=== PATIENT | male | born 1965 | race Caucasian/White ===

== ENCOUNTER 2017-05-13 15:27 | Emergency (ER) | payer OTHER ==
[~2017-05-13] VITALS: Ht 170.2 cm; Wt 81.6 kg
[~2017-05-13 15:27] MED LIST: KETOROLAC 30 MG/ML VIAL ONE; fentaNYL INJECTION 100 MCG/2 ML AMP ONE
--- OUTSIDE RECORDS SUMMARY | 2017-05-13 15:43 | XMS REPORT ---
Author LUIS ALFREDO Sifuentes Organization [employer] Address Unknown Phone Unavailable Care Team Providers Care Property Worker Name Role Phone LUIS ALFREDO DINH CP Unavailable Allergies, Adverse Reactions, Alerts Substance Reaction Event Type Iodine Info Not Available Non Drug Allergy Problems Problem Type Condition Code Onset Dates Condition Status Assessment Dental examination Z01.20 Active Medications Medication Code System Code Instructions Start Date End Date Status Dosage [facility] [address]-38 5-325 MG Orally every 6 hrs 1 [place] [address]-57 500 MG Orally 4 times a day 1 capsule Procedures Procedure Coding System Code Date INTRAORL-PERIAPICAL 1 FILM 69035 CPT-4 D0220 May 21, 2016 INTRAORL-PERIAPICAL EA ADD FILM CPT-4 D0230 May 21, 2016 LTD ORAL EVALUATION - PROBLEM FOCUS CPT-4 D0140 May 21, 2016 BITEWING - SINGLE FILM CPT-4 D0270 May 21, 2016 Vital Signs Date/Time: May 21, 2016 Blood Pressure Diastolic 84 mmHg Blood Pressure Systolic 138 mmHg Results No Known Results Summary Purpose [employer] Submission
--- OUTSIDE RECORDS SUMMARY | 2017-05-13 15:43 | XMS REPORT ---
Author LUIS ALFREDO Sifuentes [employer] Address Unknown Phone Unavailable Care Team Providers Care Faculty Research Assistant Name Role Phone LUIS ALFREDO DINH CP Unavailable Allergies, Adverse Reactions, Alerts Substance Reaction Event Type N.K.D.A. Info Not Available Non Drug Allergy Problems Problem Type Condition Code Onset Dates Condition Status Assessment Dental examination Z01.20 Active Medications Medication Code System Code Instructions Start Date End Date Status Dosage Amoxicillin [facility] [address]-78 500 MG Orally 4 times a day May 14, 2016 May 21, 2016 1 capsule [place] [facility] [address]-65 5-325 MG Orally every 6 hrs May 14, 2016 May 18, 2016 1 tablet as needed Procedures Procedure Coding System Code Date INTRAORL-PERIAPICAL 1 FILM 51671 CPT-4 D0220 May 14, 2016 LTD ORAL EVALUATION - PROBLEM FOCUS CPT-4 D0140 May 14, 2016 Vital Signs Date/Time: May 14, 2016 Blood Pressure Diastolic 113 mmHg Blood Pressure Systolic 166 mmHg Results No Known Results Summary Purpose [employer] Submission
[2017-05-13] MEDS ORDERED: TETANUS,DIPTH,PERTUSS P/F (BOOSTRIX) 0.5 ML VIAL IM ONE (15:45)
[2017-05-13] MEDS ORDERED: CLINDAMYCIN INJECTION 600 MG in NS (IVPB) 50 ML IV ONE (15:45)
[2017-05-13] MEDS ORDERED: LIDOCAINE 1% INJ 20 ML (XYLOCAINE) VIAL INJ ONE (15:45)
[2017-05-13] MEDS ORDERED: KETOROLAC 30 MG/ML VIAL IVP ONE (15:45)
[2017-05-13] MEDS ORDERED: fentaNYL INJECTION 100 MCG/2 ML AMP IVP ONE (15:45)
--- NOTE | 2017-05-13 16:07 | ED General ---
General Chief Complaint: Skin/Wound Problems Stated Complaint: L HAND THUMB INJ Nursing Triage Note: States he caught his thumb on left hand in saw clamp. distal tip is macerated nail missing, bleeding controlled Nursing Sepsis Screen: No Definite Risk Source of Information: Patient Exam Limitations: No Limitations History of Present Illness Time Seen by Provider: 15:25 Allergies and Home Medications Allergies Coded Allergies: No Known Drug Allergies (Unverified , 05/13/17) Home Medications Oxycodone HCl/Acetaminophen 1 Each Tablet, 1 EACH PO Q4H PRN for PAIN-MODERATE TO SEVERE, #30 Prescribed by: CIRO OTOOLE on 05/13/17 1647 Sulfamethoxazole/Trimethoprim 1 Each Tablet, 1 EACH PO BID, #20 Prescribed by: CIRO OTOOLE on 05/13/17 1647 Past Ktdlsel-Yahyik-Dpijnf Hx Patient Social History Alcohol Use: Occasionally Uses Number of Drinks Today: 1 Alcohol Beverage of Choice: Beer Recreational Drug Use: No Smoking Status: Current Everyday Smoker Type Used: Cigarettes, Smokeless Tobacco 2nd Hand Smoke Exposure: No Recent Foreign Travel: No Contact w/Someone Who Travel: No Recent Infectious Disease Expo: No Recent Hopitalizations: No Physical Abuse: No Sexual Abuse: No Mistreated: No Fear: No Immunizations Up To Date Tetanus Booster (TDap): More than 5yrs Seasonal Allergies Seasonal Allergies: No Surgeries History of Surgeries: Yes Surgeries: Orthopedic Respiratory History of Respiratory Disorde: No Cardiovascular History of Cardiac Disorders: Yes Cardiac Disorders: High Cholesterol, Hypertension Neurological History of Neurological Disord: No Genitourinary History of Genitourinary Disor: No Gastrointestinal History of Gastrointestinal Di: No Musculoskeletal History of Musculoskeletal Dis: No Endocrine History of Endocrine Disorders: No HEENT History of HEENT Disorders: No Cancer History of Cancer: No Psychosocial History of Psychiatric Problem: No Suicide Risk Score: 0 Integumentary History of Skin or Integumenta: No Blood Transfusions History of Blood Disorders: No Adverse Reaction to a Blood Tr: No Physical Exam Vital Signs Vital Sign - Last 12Hours 05/13/17 15:34 Temp 97.3 Pulse 77 Resp 18 B/P (MAP) 147/93 Pulse Ox 96 Capillary Refill : Less Than 3 Seconds Progress/Results/Core Measures Results/Orders My Orders Orders - CIRO RAMÍREZ MD Fentanyl Injection (Sublimaze Injection (05/13/17 15:27) Ketorolac Injection (Toradol Injection) (05/13/17 15:27) Fentanyl Injection (Sublimaze Injection (05/13/17 15:45) Ketorolac Injection (Toradol Injection) (05/13/17 15:45) Dipht,Pertuss(Acell),Tet Adult (Boostrix (05/13/17 15:45) Finger(S) (05/13/17 15:36) Lidocaine 1% Injection (Xylocaine 1% Inj (05/13/17 15:45) Clindamycin Injection (Cleocin Injection (05/13/17 15:45) Medications Given in ED Current Medications Medications Dose Ordered Sig/Toshia Route Start Time Stop Time Status Last Admin Dose Admin Clindamycin Phosphate 600 mg/ Sodium Chloride 54 ml @ 100 mls/hr ONCE ONCE IV 05/13/17 15:45 05/13/17 16:17 DC 05/13/17 15:15 100 MLS/HR Diphtheria/ Tetanus/Acell Pertussis 0.5 ml ONCE ONCE IM 05/13/17 15:45 05/13/17 15:46 DC 05/13/17 15:15 0.5 ML Fentanyl Citrate 100 mcg ONCE ONCE IVP 05/13/17 15:45 05/13/17 15:46 DC 05/13/17 15:34 100 MCG Ketorolac Tromethamine 30 mg ONCE ONCE IVP 05/13/17 15:45 05/13/17 15:46 DC 05/13/17 15:35 30 MG Lidocaine HCl 20 ml ONCE ONCE INJ 05/13/17 15:45 05/13/17 15:46 DC 05/13/17 16:00 20 ML Vital Signs/I&O Vital Sign - Last 12Hours 05/13/17 15:34 Temp 97.3 Pulse 77 Resp 18 B/P (MAP) 147/93 Pulse Ox 96 Blood Pressure Mean: 111 Progress Note : Time: 16:00 Progress Note Patient was promptly seen and examined upon arrival. He has a crush injury to the distal left thumb which he crush and cleanup. Patient was given Toradol and fentanyl for pain management. There is no active bleeding upon arrival. Clindamycin was administered by IV route for infection prophylaxis. X-rays showed fragmented distal phalanx fracture including a shattered tuft. Digital block will be performed. Wound will be cleaned and debris removed. Departure Impression Impression: Primary Impression: Crushing injury of left thumb Qualified Codes: S67.02XA - Crushing injury of left thumb, initial encounter Additional Impression: Open fracture of tuft of distal phalanx of left thumb Disposition: 01 HOME, SELF-CARE Condition: Improved Departure-Patient Inst. Decision time for Depature: 16:20 Referrals: DAVID NARVAEZ MD NO,LOCAL PHYSICIAN (PCP) Primary Care Physician Patient Instructions: Crush Injury, Finger Fracture Add. Discharge Instructions: Keep the wound and dressings clean and dry. Cover when bathing. You may remove the gauze dressing and splint if needed if it becomes soiled or too bloody. Rewrap with clean gauze. Keep the yellow nonstick gauze in place until seen by an orthopedic provider. Keep the wound elevated to the level of your heart is much as possible. Return to care if you have complications including worsening pain, spreading redness, puslike drainage, or fever. Follow -up with Dr. Narvaez's office as soon as possible. Complete your antibiotics as prescribed. All discharge instructions reviewed with patient and/or family. Voiced understanding. Scripts Oxycodone HCl/Acetaminophen (Percocet 5-325 mg Tablet) 1 Each Tablet 1 EACH PO Q4H Y for PAIN-MODERATE TO SEVERE, #30 TAB Prov: CIRO RAMÍREZ MD 05/13/17 Sulfamethoxazole/Trimethoprim (Bactrim Ds Tablet) 1 Each Tablet 1 EACH PO BID, #20 TAB Prov: CIRO RAMÍREZ MD 05/13/17 Work/School Note: Work Release Form Date Seen in the Emergency Department: May 13, 2017 Return to Work: May 14, 2017 Other Restrictions Listed Below: No use of left hand until cleared by orthopedist CIRO RAMÍREZ MD May 13, 2017 16:07
--- NOTE | 2017-05-13 16:08 | Diagnostic Imaging Report ---
Three views of the left fingers. INDICATION: Injury. FINDINGS: There is a comminuted fracture involving the distal tuft of the distal phalanx of the left thumb. No radiopaque foreign body is evident. There is displacement of the bone fragments into the subcutaneous tissues at the distal aspect of the thumb. There is possible soft tissue loss as well. No other fracture seen. No subluxation or dislocation. IMPRESSION: Comminuted fracture of the distal aspect of the tuft of the distal phalanx of the thumb. There is displacement of the fracture fragment to the distal aspect of the thumb subcutaneously. Dictated by: Dictated on workstation # [id number]
[2017-05-13] MEDS ORDERED: OXYC-197 PO (16:47)
[2017-05-13] MEDS ORDERED: SULF1TAB35 PO (16:47)
[2017-05-13 17:00] VITALS: BP 137/61
== END 2017-05-13 16:58 | disposition home or self-care (01) ==
LOC: EDUNIT# 15:27 → ER 15:29
DX: S62.522B Displaced fracture of distal phalanx of left thumb, initial encounter for open fracture (principal); E78.00 Pure hypercholesterolemia, unspecified; I10 Essential (primary) hypertension; F17.210 Nicotine dependence, cigarettes, uncomplicated; Z23 Encounter for immunization; W23.1XXA Caught, crushed, jammed, or pinched between stationary objects, initial encounter
CPT/HCPCS: 64450; 73140; 90471; 90715; 96365; 96375

== ENCOUNTER 2017-11-09 12:36 | Emergency (ER) | payer OTHER ==
[~2017-11-09] VITALS: Ht 170.2 cm; Wt 78.5 kg
[~2017-11-09 12:36] MED LIST changes: -KETOROLAC 30 MG/ML VIAL ONE; +OXYC-197 PO; +SULF1TAB35 PO; -fentaNYL INJECTION 100 MCG/2 ML AMP ONE
[2017-11-09] MEDS ORDERED: GABA-488 (12:59)
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
[2017-11-09] MEDS ORDERED: KETOROLAC 30 MG/ML VIAL IM ONE (14:00)
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
[2017-11-09] MEDS ORDERED: KETOROLAC 30 MG/ML VIAL IVP ONE (14:30)
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
[2017-11-09 15:18] LABS: BUN/CREATININE RATIO 16; CALCIUM 9.4 MG/DL (8.5-10.1); CARBON DIOXIDE 22 MMOL/L (21-32); CHLORIDE 107 MMOL/L (98-107); CREATININE SERUM 0.79 MG/DL (0.60-1.30); GFR ESTIMATED > 60; GLUCOSE 101 MG/DL (70-105); POTASSIUM 4.2 MMOL/L (3.6-5.0); SODIUM 139 MMOL/L (135-145)
[2017-11-09] MEDS ORDERED: NS 100 ML (IVPB) BAG IV ONE (15:30)
[2017-11-09] MEDS ORDERED: IOHEXOL 350 MG/ML 100 ML (OMNIPAQUE 350) VIAL IV ONE (15:30)
[2017-11-09] MEDS ORDERED: diphenhydrAMINE 50 MG/ML INJ (BENADRYL) IVP ONE (15:45)
[2017-11-09] MEDS ORDERED: methylPREDNISolone 125 MG (Solu-MEDROL) VIAL IVP ONE (15:45)
--- NOTE | 2017-11-09 16:39 | Diagnostic Imaging Report ---
PROCEDURE: CT chest with contrast only. TECHNIQUE: Multiple contiguous axial images were obtained through the chest after administration of intravenous contrast. INDICATION: Abdominal chest x-ray. FINDINGS: The CT thorax and chest exam performed earlier today raised the question of a left hilar mass. On this study, there is no sign of a mass involving the left hilum. Most likely, the finding seen on the previous exam was related to the pulmonary vessels alone. The pulmonary arteries are fairly well opacified. There is no defect to suggest a pulmonary embolus. The aorta is not abnormally dilated and there is no sign of a dissection. The heart size is within normal limits. The chest exam performed earlier today did note a small area of increased density overlying the right lung base. On this study, there is a corresponding pleural-based noncalcified triangular density in this region measuring 7.7 x 1.0 x 16.7 mm. This could be secondary to scar formation. The possibility that this is neoplastic in nature cannot be entirely excluded. I would recommend that a PET/CT be performed for further study. If the PET/CT exam is not obtained, then a short-term (three-month) followup CT chest exam should be obtained. The lungs are otherwise generally clear. There is mild dependent atelectasis in each lung base but there is no sign of pneumonia or of a pleural effusion. The sections through the upper abdomen failed to show any evidence for an acute abnormality. The bone windows are unremarkable for fracture or for destructive lesion. IMPRESSION: 1. There is no evidence for a left hilar mass. Most likely, the appearance of the left hilum seen on the previous exam is related to superimposition of bronchovascular markings. 2. The pleural-based nodular density along the periphery of the right lower lobe is of uncertain etiology. Considerations and recommendations as above. 3. There is no acute cardiopulmonary abnormality noted otherwise. Dictated by: Dictated on workstation # [id number]
[2017-11-09] MEDS ORDERED: PRD20T PO (17:32)
[2017-11-09 17:38] VITALS: BP 162/100
== END 2017-11-09 17:41 | disposition home or self-care (01) ==
LOC: EDUNIT# 12:36 → ER 12:38
DX: M54.2 Cervicalgia (principal); M54.6 Pain in thoracic spine; R91.1 Solitary pulmonary nodule; E78.00 Pure hypercholesterolemia, unspecified; I10 Essential (primary) hypertension; Z88.0 Allergy status to penicillin; Z91.041 Radiographic dye allergy status
CPT/HCPCS: 36415; 71045; 71046; 71260; 72125; 72128; 80048; 96374; 96375

== ENCOUNTER → 2018-06-16 | Outpatient (CLI) | payer MEDICAID, OTHER ==
[~2018-06-16] MED LIST changes: +GABA-488; -OXYC-197 PO; +OXYC1TAB87 PO; +PRD20T PO
--- NOTE | 2018-06-16 15:10 | Diagnostic Imaging Report ---
PROCEDURE: CT chest without contrast. TECHNIQUE: Multiple contiguous axial images were obtained through the chest without the use of intravenous contrast. INDICATION: Followup left hilar mass. COMPARISON: Comparison is made with prior CT chest from 11/09/2017. FINDINGS: No axillary lymphadenopathy is identified. Hilar and mediastinal evaluation is limited without intravenous contrast but no gross abnormality seen. No pericardial or pleural fluid is detected. Parenchymal evaluation again demonstrates a triangular shaped subpleural density in the posterior lateral right lower lobe, similar in appearance to prior CT. No new abnormality is detected. The upper abdomen is unremarkable. IMPRESSION: Stable noncontrast CT chest when compared with exam from 11/09/2017. Previously noted subpleural density in the posterior lateral right lower lobe is stable. Additional followup in six months is recommended to confirm stability. Dictated by: Dictated on workstation # [id number]
== END ==
LOC: RAD 14:34
PROVIDERS: ATTEND Nurse Practitioner Family
DX: J98.4 Other disorders of lung (principal)
CPT/HCPCS: 71250

== ENCOUNTER → 2018-12-17 | Outpatient (CLI) | payer MEDICAID ==
--- NOTE | 2018-12-17 14:18 | Diagnostic Imaging Report ---
PROCEDURE: MRI left upper extremity without contrast. TECHNIQUE: Multiplanar, multisequence non contrast-enhanced MRI of the left upper extremity was accomplished. INDICATION: Left shoulder pain and decreased range of motion. Injury one week ago. COMPARISON: None. FINDINGS: There is significant motion artifact on multiple sequences. No acute fracture is seen in the left shoulder. Alignment is normal. There is moderate left shoulder joint effusion. Prominent subcortical cystlike changes are seen at the greater tuberosity, which are degenerative. There are moderate degenerative changes in the left acromioclavicular joint, with subacromial spurring. There are multiple linear hypointensity is in the joint space, may represent synovitis. The joint fluid extends into the superior subscapularis recess. The supraspinatus tendon demonstrates a full-thickness tear anteriorly measuring up to 1.5 cm in size. There is marked tendinosis of the supraspinatus and infraspinatus tendons. There is partial thickness tearing of the anterior fibers of the infraspinatus tendon with medial intrasubstance extension. The teres minor tendon appears intact. There is marked tendinosis of the subscapularis tendon, with high-grade partial-thickness tearing at the articular surface. There is a small amount of fluid in the subacromial subdeltoid bursa. The long head of the biceps tendon demonstrates a near complete tear proximally, with marked tendinosis. The tendon is displaced medially from the bicipital groove. The glenoid labrum is suboptimally evaluated in the absence of intra-articular contrast, however, no significant paralabral cysts or displaced labral tear is seen. The acromion has a curved undersurface. The coracoclavicular and coracoacromial ligaments are intact. No muscular atrophy is seen. The soft tissues about the left shoulder are otherwise unremarkable. IMPRESSION: 1. Moderate size full-thickness tear of the left supraspinatus tendon with high-grade partial-thickness tearing of the infraspinatus and subscapularis tendons. There is also marked rotator cuff tendinosis. 2. Near complete tear of the proximal long head of the biceps tendon, which is displaced medially. 3. Moderate left shoulder joint effusion with linear irregularity, likely synovitis. 4. Moderate left shoulder joint effusion with mild subacromial spurring. Dictated by: Dictated on workstation # [id number]
== END ==
LOC: RAD 13:09
PROVIDERS: ATTEND Nurse Practitioner Primary Care
DX: S46.012A Strain of muscle(s) and tendon(s) of the rotator cuff of left shoulder, initial encounter (principal); S46.112A Strain of muscle, fascia and tendon of long head of biceps, left arm, initial encounter
CPT/HCPCS: 73221

== ENCOUNTER 2019-01-08 12:20 | Outpatient (CLI) | payer MEDICAID ==
[~2019-01-08] VITALS: Ht 170.2 cm; Wt 79.8 kg
[~2019-01-08 12:20] MED LIST changes: -GABA-488; +GABA-488 PO
[2019-01-08] MEDS ORDERED: HYDR-3812 PO (12:32)
[2019-01-08 12:55] VITALS: BP 150/91
== END 2019-01-08 12:40 | disposition home or self-care (01) ==
LOC: PREOP 12:20
PROVIDERS: ATTEND Orthopaedic Surgery
DX: Z01.818 Encounter for other preprocedural examination (principal)
CPT/HCPCS: 87081

== ENCOUNTER 2019-01-14 09:17 | Day surgery (SDC) | payer MEDICAID ==
--- NOTE | 2019-01-05 10:11 | HISTORY AND PHYSICAL ---
DATE OF SERVICE: DATE OF ADMISSION: 01/14/2019. This will be for outpatient surgery on 01/14/2019. HISTORY OF PRESENT ILLNESS: The patient is a 53-year-old gentleman with complaints of progressively worsening left shoulder pain. He reports progressively worsening symptoms, reports difficulty with sleep. He has been utilizing a sling periodically to help with his discomfort. He reports no new injuries. His MRI revealed a 1.5 cm full thickness supraspinatus tear with a near full thickness long head biceps disruption. Due to functional impairment and failure to improve with conservative measures, the patient elected to proceed with surgical intervention. REVIEW OF SYSTEMS: No chest pain, no shortness of breath, no dysuria. PAST MEDICAL HISTORY: Back pain, neuropathy. PAST SURGICAL HISTORY: Thumb, rotator cuff, carpal tunnel release. FAMILY HISTORY: Noncontributory. PRIMARY CARE PROVIDER: [facility]. MEDICATIONS: Gabapentin, [place], cyclobenzaprine, meloxicam. ALLERGIES: IODINE, PENICILLIN. SOCIAL HISTORY: The patient smokes half pack per day. She uses a 1/4 can of tobacco a day. Denies alcohol use. PHYSICAL EXAMINATION: GENERAL: The patient is a well-developed, well-nourished, in no acute distress. HEENT: Normocephalic, atraumatic. Pupils are equal, round and reactive to light. Oropharynx is clear. NECK: Supple, no lymphadenopathy. LUNGS: Clear to auscultation bilaterally. HEART: Regular rate and rhythm. ABDOMEN: Soft, nontender, nondistended. EXTREMITIES: Left shoulder demonstrates active forward elevation 160 degrees with considerable pain and difficulty beyond 90 degrees. He has a positive drop arm sign. He has weakness with external rotation. Positive Neer's and positive Landaverde, positive [place]'s. IMPRESSION: Left shoulder rotator cuff tear with long head biceps near disruption. PLAN: Left shoulder arthroscopy, biceps tenotomy and rotator cuff repair. The risks, benefits, options, ramifications for recovery were discussed at length with the patient. He understands and wishes to proceed. Job ID: [id number] DocumentID: [id number] Dictated Date: 01/05/2019 08:14:55 Demand Planning Analyst Date: 01/05/2019 10:10:26 Dictated By: EDUARDO CARTER MD
[~2019-01-14] VITALS: Ht 170.2 cm; Wt 79.8 kg
[2019-01-14] VITALS (9 sets, daily range): BP systolic 125–156; BP diastolic 84–102
[~2019-01-14 09:17] MED LIST changes: +HYDR-3812 PO
--- NOTE | 2019-01-14 09:32 | Progress Note-Pre Operative ---
Pre-Operative Progress Note H&P Reviewed The H&P was reviewed, patient examined and no changes noted. Date Seen by Provider: Jan 14, 2019 Time Seen by Provider: : Date H&P Reviewed: Jan 14, 2019 Time H&P Reviewed: :31 Pre-Operative Diagnosis: left rotator cuff and SLAP tears EDUARDO CARTER MD Jan 14, 2019 09:31
--- NOTE | 2019-01-14 09:33 | Progress Note-Post Operative ---
Post-Operative Progess Note Surgeon (s)/Call Center Coordinator (s) Surgeon EDUARDO CARTER MD Call Center Coordinator: Mina Ricardo Pre-Operative Diagnosis left rotator cuff and SLAP tears Post-Operative Diagnosis left rotator cuff, labral and SLAP tears Procedure & Operative Findings Date of Procedure 01/14/19 Procedure Performed/Findings left shoulder arthroscopic biceps tenotomy,labral debridement, acromioplasty and open rotator cuff repair Anesthesia Type GETA Estimated Blood Loss Estimated blood loss (mL): minimal Specimens/Packing Specimens Removed none Packing: none EDUARDO CARTER MD Jan 14, 2019 09:33
[2019-01-14] MEDS ORDERED: MIDAZOLAM 2 MG/2 ML (VERSED) VIAL ONE ×2 (09:42→10:13)
[2019-01-14] MEDS ORDERED: CLINDAMYCIN 600 MG/50 ML IVPB 50 ML IV ONE (09:45)
[2019-01-14] MEDS: LACTATED RINGERS 1,000 ML IV PRN ×2 (09:50→11:15)
[2019-01-14] MEDS ORDERED: ROCURONIUM 10 MG/ML 5 ML SYRINGE IV ONE (10:12)
[2019-01-14] MEDS ORDERED: LIDOCAINE PF 2% 5 ML (XYLOCAINE) VIAL ONE (10:12)
[2019-01-14] MEDS ORDERED: ONDANSETRON 4 MG/2 ML (SDV) Z0FRAN ONE (10:12)
[2019-01-14] MEDS ORDERED: proPOfol 200 MG/20 ML (DIPRIVAN) VIAL IV ONE (10:12)
[2019-01-14] MEDS ORDERED: DEXAMETHASONE 10 MG/ML (DECADRON) 1 ML VIAL ONE (10:12)
[2019-01-14] MEDS ORDERED: fentaNYL INJECTION 100 MCG/2 ML AMP ONE (10:13)
[2019-01-14] MEDS ORDERED: morphine PF (DURAMORPH) 10 MG/10 ML AMP ONE (10:15)
[2019-01-14] MEDS ORDERED: BUPIVACAINE 0.25% 30 ML (SENSORCAINE) VIAL ONE (10:15)
[2019-01-14] MEDS ORDERED: SEVOFLURANE (ULTANE) 15 ML INHAL SOLN ONE (10:21)
--- OUTSIDE RECORDS SUMMARY | 2019-01-14 10:44 | XMS REPORT | CCD ---
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 Role Phone PP Unavailable CCM Unavailable Summary Purpose Interface Exchange Insurance Providers Payer name Policy type / Coverage type Covered green party ID Effective Begin Date Effective End Date [facility] Medicaid [id number] Unknown Family history Father Diagnosis Age At Onset Diabetes mellitus Type 2 Unknown Hyperlipidemia Unknown Brother Diagnosis Age At Onset Diabetes mellitus Type 2 Unknown Social History Social History Element Codes Description Effective Dates Marital status Unknown Single 11/18/2017 Number of children Unknown 2 11/18/[address]: 87719081 Current every day smoker 11/18/2017 Number of years using tobacco Unknown 10 - 20 11/18/2017 Number of cigarettes/day Unknown 10 (Half a pack) 11/18/[address]: 725498 Currently drinks alcohol 11/18/2017 Frequency of drinks SNOMED CT: 975834164 1- 4 drinks per week 11/18/2017 Allergies, Adverse Reactions, Alerts Substance Reaction Codes Entered Date Inactivated Date Status Iodine RxNorm: 5933 11/18/2017 No Inactive Date Active Penicillin Unknown 11/18/2017 No Inactive Date Active Past Medical History Illness Codes Condition Status Onset Date Resolved Date Carpal tunnel syndrome, left upper limb ICD-9: 354.0 ICD-10: G56.02 Active 08/18/2018 Unknown Carpal tunnel syndrome, right upper limb ICD-9: 354.0 ICD-10: G56.01 Active 08/18/2018 Unknown Cervicalgia ICD-9: 723.1 ICD-10: M54.2 Active 07/03/2018 Unknown Low back pain ICD-9: 724.2 ICD-10: M54.5 Active 11/18/2017 Unknown Muscle spasm of back ICD- 9: 724.8 ICD-10: M62.830 Active 11/18/2017 Unknown Pain in thoracic spine ICD-9: 724.1 ICD-10: M54.6 Active 11/18/2017 Unknown Abnormal findings on diagnostic imaging of other specified body structures ICD-9: 793.2 ICD-10: R93.8 Active 11/18/2017 Unknown Problems Condition Codes Effective Dates Condition Status Carpal tunnel syndrome, left upper limb ICD-9: 354.0 ICD-10: G56.02 08/18/2018 Active Carpal tunnel syndrome, right upper limb ICD-9: 354.0 ICD-10: G56.01 08/18/2018 Active Cervicalgia ICD-9: 723.1 ICD-10: M54.2 07/03/2018 Active Low back pain ICD-9: 724.2 ICD-10: M54.5 11/18/2017 Active Muscle spasm of back ICD- 9: 724.8 ICD-10: M62.830 11/18/2017 Active Pain in thoracic spine ICD-9: 724.1 ICD-10: M54.6 11/18/2017 Active Abnormal findings on diagnostic imaging of other specified body structures ICD-9: 793.2 ICD-10: R93.8 11/18/2017 Active Medications Medication Codes Instructions Start Date Stop Date Status Fill Instructions baclofen 10 mg tablet RxNorm: 544806 1 Tablet(s) PO TID as needed muscle spasms 10/27/2018 11/25/2018 Active baclofen 10 mg tablet RxNorm: 893348 Tablet(s) 1 Tablet(s) PO TID as needed muscle spasms 10/27/2018 10/26/2018 Inactive Lortab 5 mg-325 mg tablet RxNorm: 4356481 1 Tablet(s) PO Q6 as needed 09/30/2018 11/28/2018 Active cyclobenzaprine 5 mg tablet RxNorm: 514221 1 Tablet(s) PO TID 09/02/2018 10/01/2018 Inactive cyclobenzaprine 5 mg tablet RxNorm: 292743 1 Tablet(s) PO TID as needed muscle spasms 08/22/2018 09/01/2018 Inactive prednisone 20 mg tablet RxNorm: 682571 3 Tablet(s) PO daily 08/21/2018 08/23/2018 Inactive gabapentin 300 mg capsule RxNorm: 244214 1 Capsule(s) PO in morning and at noon and 2 pills at night 08/18/2018 12/15/2018 Active Lortab 5 mg-325 mg tablet RxNorm: 3918751 1 Tablet(s) PO Q6 as needed ok'd to fill 1 x 08/15/2018 09/29/2018 Inactive gabapentin 300 mg capsule RxNorm: 955335 1 Capsule(s) PO TID 08/04/2018 08/17/2018 Inactive baclofen 10 mg tablet RxNorm: 876726 1 Tablet(s) PO TID as needed muscle spasms 07/31/2018 08/09/2018 Inactive Lortab 5 mg-325 mg tablet RxNorm: 3237875 1 Tablet(s) PO Q6 as needed ok'd to fill 1 x 07/31/2018 08/14/2018 Inactive baclofen 10 mg tablet RxNorm: 045889 1 Tablet(s) PO TID as needed muscle spasms 07/25/2018 07/30/2018 Inactive baclofen 10 mg tablet RxNorm: 121589 1 Tablet(s) PO TID as needed muscle spasms 07/23/2018 07/24/2018 Inactive baclofen 10 mg tablet RxNorm: 813356 1 Tablet(s) PO TID as needed muscle spasms 07/18/2018 07/22/2018 Inactive ibuprofen 800 mg tablet RxNorm: 014733 1 Tablet(s) PO TID as needed 07/11/2018 11/07/2018 Active ibuprofen 800 mg tablet RxNorm: 288760 1 Tablet(s) PO TID as needed 07/11/2018 07/10/2018 Inactive ibuprofen 800 mg tablet RxNorm: 494469 1 Tablet(s) PO TID as needed 07/11/2018 07/10/2018 Inactive Duexis 800 mg-26.6 mg tablet RxNorm: 1044926 1 Tablet(s) PO TID as needed 07/08/2018 08/06/2018 Inactive prednisone 20 mg tablet RxNorm: 436356 1 Tablet(s) PO UD 07/08/2018 07/12/2018 Inactive 40,40,20,20,10,10, baclofen 10 mg tablet RxNorm: 225597 1 Tablet(s) PO TID as needed muscle spasms 07/08/2018 07/17/2018 Inactive prednisone 20 mg tablet RxNorm: 097207 2 Tablet(s) PO daily 07/03/2018 07/07/2018 Inactive baclofen 10 mg tablet RxNorm: 331972 1 Tablet(s) PO TID 07/03/2018 07/07/2018 Inactive Lortab 5 mg-325 mg tablet RxNorm: 1872086 1 Tablet(s) PO Q6 as needed ok'd to fill 1 x 06/20/2018 07/19/2018 Inactive Kenalog 40 mg/mL suspension for injection RxNorm: 4390449 1 Milliliter(s) Inj 06/05/2018 06/05/2018 Inactive cyclobenzaprine 5 mg tablet RxNorm: 861460 1 Tablet(s) PO TID as needed muscle spasms 06/03/2018 08/21/2018 Inactive Lortab 5 mg-325 mg tablet RxNorm: 0512643 1 Tablet(s) PO Q6 as needed ok'd to fill 1 x 05/08/2018 06/06/2018 Inactive cyclobenzaprine 5 mg tablet RxNorm: 587354 1 Tablet(s) PO TID as needed muscle spasms 05/02/2018 06/02/2018 Inactive Lortab 5 mg-325 mg tablet RxNorm: 4719969 1 Tablet(s) PO Q6 04/24/2018 05/07/2018 Inactive gabapentin 300 mg capsule RxNorm: 885864 1 Capsule(s) PO TID 04/18/2018 08/03/2018 Inactive gabapentin 300 mg capsule RxNorm: 974931 1 Capsule(s) PO TID 02/14/2018 04/17/2018 Inactive gabapentin 300 mg capsule RxNorm: 849084 1 Capsule(s) PO TID 01/14/2018 02/13/2018 Inactive gabapentin 300 mg capsule RxNorm: 281612 1 Capsule(s) PO TID 12/04/2017 01/02/2018 Inactive Zorvolex 35 mg capsule RxNorm: 7772149 1 Capsule(s) PO TID as needed for pain 11/25/2017 12/24/2017 Inactive Zorvolex 35 mg capsule RxNorm: 5698501 1 Capsule(s) PO TID as needed for pain 11/21/2017 11/24/2017 Inactive Zorvolex 35 mg capsule RxNorm: 0443335 1 Capsule(s) PO TID as needed for pain 11/21/2017 11/20/2017 Inactive cyclobenzaprine 5 mg tablet RxNorm: 580503 1 Tablet(s) PO TID as needed muscle spasms 11/18/2017 05/01/2018 Inactive gabapentin 300 mg capsule RxNorm: 676612 1 Capsule(s) PO BID No Start Date 12/03/2017 Inactive Medication Administered Medication Codes Instructions Start Date Status Kenalog 40 mg/mL suspension for injection RxNorm: 9882240 1Milliliter 06/05/2018 No longer Active Immunizations No Immunization data Assessments Condition Codes Effective Dates Cervicalgia ICD-10: M54.2 ICD-9: 723.1 08/21/2018 Muscle spasm of back ICD-10: M62.830 ICD-9: 724.8 08/21/2018 Carpal tunnel syndrome, right upper limb ICD-10: G56.01 ICD-9: 354.0 08/21/2018 Pain in thoracic spine ICD-10: M54.6 ICD-9: 724.1 08/21/2018 Carpal tunnel syndrome, left upper limb ICD-10: G56.02 ICD-9: 354.0 08/21/2018 Low back pain ICD-10: M54.5 ICD-9: 724.2 08/21/2018 Abnormal findings on diagnostic imaging of other specified body structures ICD-10: R93.8 ICD-9: 793.2 11/18/2017 Reason For Visit Reason For Visit Effective Dates Notes hypertension 08/21/2018 hypertension 08/18/2018 low back pain 07/03/2018 low back pain 06/05/2018 back pain 05/01/2018 back pain 03/24/2018 back pain 11/18/2017 Results No Results data Review of Systems System Result Effective Dates Constitutional No recent illness 08/21/2018 Constitutional No chills 08/21/2018 Constitutional No fever 08/21/2018 Eyes No eye erythema 08/21/2018 Ears/Nose/Throat/Neck No nasal discharge 08/21/2018 Cardiovascular No chest pain/pressure 08/21/2018 Cardiovascular No dyspnea 08/21/2018 Respiratory No cough 08/21/2018 Respiratory No dyspnea 08/21/2018 Musculoskeletal joint complaint 08/21/2018 Neurologic No alteration of consciousness 08/21/2018 Neurologic No mental status change 08/21/2018 Constitutional No recent illness 08/18/2018 Constitutional No chills 08/18/2018 Constitutional No diaphoresis 08/18/2018 Constitutional No fever 08/18/2018 Eyes No eye erythema 08/18/2018 Ears/Nose/Throat/Neck No nasal allergies 08/18/2018 Ears/Nose/Throat/Neck No nasal discharge 08/18/2018 Cardiovascular No chest pain/pressure 08/18/2018 Cardiovascular No dyspnea 08/18/2018 Respiratory No chest congestion 08/18/2018 Respiratory No cough 08/18/2018 Respiratory No dyspnea 08/18/2018 Gastrointestinal No abdominal pain 08/18/2018 Musculoskeletal arthralgia(s) 08/18/2018 Musculoskeletal back pain 08/18/2018 Dermatologic No rash 08/18/2018 Neurologic No alteration of consciousness 08/18/2018 Neurologic No mental status change 08/18/2018 Constitutional No recent illness 07/03/2018 Constitutional No chills 07/03/2018 Constitutional No diaphoresis 07/03/2018 Constitutional No fever 07/03/2018 Eyes No eye erythema 07/03/2018 Ears/Nose/Throat/Neck No nasal allergies 07/03/2018 Ears/Nose/Throat/Neck No nasal discharge 07/03/2018 Cardiovascular No chest pain/pressure 07/03/2018 Cardiovascular No dyspnea 07/03/2018 Respiratory No chest congestion 07/03/2018 Respiratory No cough 07/03/2018 Respiratory No dyspnea 07/03/2018 Musculoskeletal arthralgia(s) 07/03/2018 Musculoskeletal back pain 07/03/2018 Dermatologic No rash 07/03/2018 Neurologic No alteration of consciousness 07/03/2018 Neurologic No mental status change 07/03/2018 Gastrointestinal No abdominal pain 07/03/2018 Constitutional No recent illness 06/05/2018 Constitutional No chills 06/05/2018 Constitutional No diaphoresis 06/05/2018 Constitutional No fever 06/05/2018 Eyes No eye erythema 06/05/2018 Ears/Nose/Throat/Neck No nasal allergies 06/05/2018 Ears/Nose/Throat/Neck No nasal discharge 06/05/2018 Cardiovascular No chest pain/pressure 06/05/2018 Cardiovascular No dyspnea 06/05/2018 Respiratory No chest congestion 06/05/2018 Respiratory No cough 06/05/2018 Respiratory No dyspnea 06/05/2018 Gastrointestinal No abdominal pain 06/05/2018 Gastrointestinal No constipation 06/05/2018 Gastrointestinal No diarrhea 06/05/2018 Gastrointestinal No hematochezia 06/05/2018 Gastrointestinal No melena 06/05/2018 Gastrointestinal No nausea 06/05/2018 Gastrointestinal No vomiting 06/05/2018 Musculoskeletal arthralgia(s) 06/05/2018 Musculoskeletal back pain 06/05/2018 Dermatologic No rash 06/05/2018 Neurologic No alteration of consciousness 06/05/2018 Neurologic No mental status change 06/05/2018 Constitutional No recent illness 05/01/2018 Constitutional No chills 05/01/2018 Constitutional No diaphoresis 05/01/2018 Constitutional No fever 05/01/2018 Eyes No eye erythema 05/01/2018 Ears/Nose/Throat/Neck No nasal allergies 05/01/2018 Ears/Nose/Throat/Neck No nasal discharge 05/01/2018 Cardiovascular No chest pain/pressure 05/01/2018 Cardiovascular No dyspnea 05/01/2018 Respiratory No chest congestion 05/01/2018 Respiratory No cough 05/01/2018 Respiratory No dyspnea 05/01/2018 Gastrointestinal No abdominal pain 05/01/2018 Gastrointestinal No constipation 05/01/2018 Gastrointestinal No diarrhea 05/01/2018 Gastrointestinal No hematochezia 05/01/2018 Gastrointestinal No melena 05/01/2018 Gastrointestinal No nausea 05/01/2018 Gastrointestinal No vomiting 05/01/2018 Musculoskeletal arthralgia(s) 05/01/2018 Musculoskeletal back pain 05/01/2018 Dermatologic No rash 05/01/2018 Neurologic No alteration of consciousness 05/01/2018 Neurologic No mental status change 05/01/2018 Constitutional No recent illness 03/24/2018 Constitutional No chills 03/24/2018 Constitutional No diaphoresis 03/24/2018 Constitutional No fever 03/24/2018 Eyes No eye erythema 03/24/2018 Ears/Nose/Throat/Neck No nasal allergies 03/24/2018 Ears/Nose/Throat/Neck No nasal discharge 03/24/2018 Cardiovascular No chest pain/pressure 03/24/2018 Cardiovascular No dyspnea 03/24/2018 Respiratory No chest congestion 03/24/2018 Respiratory No cough 03/24/2018 Respiratory No dyspnea 03/24/2018 Gastrointestinal No abdominal pain 03/24/2018 Gastrointestinal No constipation 03/24/2018 Gastrointestinal No diarrhea 03/24/2018 Gastrointestinal No hematochezia 03/24/2018 Gastrointestinal No melena 03/24/2018 Gastrointestinal No nausea 03/24/2018 Gastrointestinal No vomiting 03/24/2018 Musculoskeletal arthralgia(s) 03/24/2018 Musculoskeletal back pain 03/24/2018 Dermatologic No rash 03/24/2018 Neurologic No alteration of consciousness 03/24/2018 Neurologic No mental status change 03/24/2018 Constitutional No recent illness 11/18/2017 Constitutional No chills 11/18/2017 Constitutional No diaphoresis 11/18/2017 Constitutional No fever 11/18/2017 Eyes No eye erythema 11/18/2017 Ears/Nose/Throat/Neck No nasal discharge 11/18/2017 Ears/Nose/Throat/Neck No nasal allergies 11/18/2017 Cardiovascular No chest pain/pressure 11/18/2017 Cardiovascular No dyspnea 11/18/2017 Respiratory No cough 11/18/2017 Respiratory No chest congestion 11/18/2017 Respiratory No dyspnea 11/18/2017 Gastrointestinal No abdominal pain 11/18/2017 Gastrointestinal No constipation 11/18/2017 Gastrointestinal No diarrhea 11/18/2017 Gastrointestinal No vomiting 11/18/2017 Gastrointestinal No nausea 11/18/2017 Gastrointestinal No melena 11/18/2017 Gastrointestinal No hematochezia 11/18/2017 Musculoskeletal back pain 11/18/2017 Musculoskeletal arthralgia(s) 11/18/2017 Dermatologic No rash 11/18/2017 Neurologic No alteration of consciousness 11/18/2017 Neurologic No mental status change 11/18/2017 Physical Exam Exam Name System Name Item Name Status Result Effective Dates Notes Full Exam - Orthopedics Constitutional general appearance Overall: well nourished 08/21/2018 None Full Exam - Orthopedics Constitutional general appearance Overall: well developed 08/21/2018 None Full Exam - Orthopedics Constitutional general appearance Overall: in no acute distress 08/21/2018 None Full Exam - Orthopedics Eyes conjunctiva/eyelids Overall: conjunctiva clear 08/21/2018 None Full Exam - Orthopedics Eyes conjunctiva/eyelids Overall: eyelids normal 08/21/2018 None Full Exam - Orthopedics Ears/Nose/Throat lips/teeth/gingiva Overall: benign lips 08/21/2018 None Full Exam - Orthopedics Ears/Nose/Throat oral cavity/pharynx/larynx Overall: oral mucosa clear 08/21/2018 None Full Exam - Orthopedics Respiratory respiratory effort/rhythm Overall: no retractions 08/21/2018 None Full Exam - Orthopedics Respiratory respiratory effort/rhythm Overall: normal rate 08/21/2018 None Full Exam - Orthopedics Psychiatric orientation/consciousness Overall: oriented to person, place and time 08/21/2018 None Full Exam - Orthopedics Psychiatric mood and affect Overall: normal mood and affect 08/21/2018 None Full Exam - Orthopedics Psychiatric appearance Overall: well-groomed, good eye contact 08/21/2018 None Full Exam - Orthopedics MS: head/neck insp & palp - H/N Overall: head atraumatic 08/21/2018 None Full Exam - Orthopedics MS: head/neck insp & palp - H/N Cervical spine palpation: tender facet joints 08/21/2018 None Full Exam - Orthopedics MS: spine/rib/pelvis insp & palp - S/R/P Thoracic spine palpation: tender facet joints 08/21/2018 None Full Exam - Orthopedics MS: spine/rib/pelvis insp & palp - S/R/P Lumbar spine palpation: tender facet joints 08/21/2018 None Full Exam - Orthopedics MS: Bilateral Upper Extremities insp & palp - UE Wrists: tender 08/21/2018 None Full Exam - General 1994 Constitutional general appearance Overall: well developed 08/18/2018 None Full Exam - General 1994 Constitutional general appearance Overall: in no acute distress 08/18/2018 None Full Exam - General 1994 Constitutional general appearance Overall: well nourished 08/18/2018 None Full Exam - General 1994 Eyes conjunctiva/eyelids Overall: conjunctiva clear 08/18/2018 None Full Exam - General 1994 Eyes conjunctiva/eyelids Overall: cornea clear 08/18/2018 None Full Exam - General 1994 Eyes conjunctiva/eyelids Overall: eyelids normal 08/18/2018 None Full Exam - General 1994 Eyes pupils and irises Overall: pupils equal, round, reactive to light and accomodation 08/18/2018 None Full Exam - General 1994 Ears/Nose/Throat otoscopic exam Overall: external auditory canals clear 08/18/2018 None Full Exam - General 1994 Ears/Nose/Throat otoscopic exam Overall: tympanic membranes clear 08/18/2018 None Full Exam - General 1994 Ears/Nose/Throat lips/teeth/gingiva Overall: benign lips 08/18/2018 None Full Exam - General 1994 Ears/Nose/Throat oral cavity/pharynx/larynx Overall: oral mucosa clear 08/18/2018 None Full Exam - General 1994 Respiratory auscultation Overall: breath sounds clear bilaterally 08/18/2018 None Full Exam - General 1994 Respiratory auscultation Diffuse: diminished 08/18/2018 None Full Exam - General 1994 Respiratory respiratory effort/rhythm Overall: no retractions 08/18/2018 None Full Exam - General 1994 Respiratory respiratory effort/rhythm Overall: normal rate 08/18/2018 None Full Exam - General 1994 Cardiovascular auscultation of heart Overall: regular rate 08/18/2018 None Full Exam - General 1994 Cardiovascular auscultation of heart Overall: normal heart sounds 08/18/2018 None Full Exam - General 1994 Lymphatic neck nodes Overall: anterior cervical chain benign 08/18/2018 None Full Exam - General 1994 Lymphatic neck nodes Overall: posterior cervical chain benign 08/18/2018 None Full Exam - General 1994 Musculoskeletal spine, ribs and pelvis Spine: tender @ cervical spine 08/18/2018 None Full Exam - General 1994 Musculoskeletal spine, ribs and pelvis Spine: tender @ thoracic spine 08/18/2018 None Full Exam - General 1994 Musculoskeletal spine, ribs and pelvis Spine: tender @ lumbar spine 08/18/2018 None Full Exam - General 1994 Musculoskeletal gait and station Overall: normal gait 08/18/2018 None Full Exam - General 1994 Musculoskeletal gait and station Overall: normal station 08/18/2018 None Full Exam - General 1994 Musculoskeletal head and neck Overall: head atraumatic 08/18/2018 None Full Exam - General 1994 Neurologic cranial nerves Overall: crainial nerves 2 - 12 grossly intact 08/18/2018 None Full Exam - General 1994 Psychiatric orientation/consciousness Overall: oriented to person, place and time 08/18/2018 None Full Exam - General 1994 Psychiatric mood and affect Overall: normal mood and affect 08/18/2018 None Full Exam - General 1994 Psychiatric appearance Overall: well-groomed, good eye contact 08/18/2018 None Full Exam - General 1994 Musculoskeletal upper extremity ROM - wrist: decreased flexion 08/18/2018 None Full Exam - General 1994 Musculoskeletal upper extremity ROM - wrist: pain with flexion 08/18/2018 None Full Exam - General 1994 Musculoskeletal upper extremity ROM - wrist: decreased extension 08/18/2018 None Full Exam - General 1994 Constitutional general appearance Overall: well developed 07/03/2018 None Full Exam - General 1994 Constitutional general appearance Overall: in no acute distress 07/03/2018 None Full Exam - General 1994 Constitutional general appearance Overall: well nourished 07/03/2018 None Full Exam - General 1994 Eyes conjunctiva/eyelids Overall: conjunctiva clear 07/03/2018 None Full Exam - General 1994 Eyes conjunctiva/eyelids Overall: cornea clear 07/03/2018 None Full Exam - General 1994 Eyes conjunctiva/eyelids Overall: eyelids normal 07/03/2018 None Full Exam - General 1994 Eyes pupils and irises Overall: pupils equal, round, reactive to light and accomodation 07/03/2018 None Full Exam - General 1994 Ears/Nose/Throat otoscopic exam Overall: external auditory canals clear 07/03/2018 None Full Exam - General 1994 Ears/Nose/Throat otoscopic exam Overall: tympanic membranes clear 07/03/2018 None Full Exam - General 1994 Ears/Nose/Throat lips/teeth/gingiva Overall: benign lips 07/03/2018 None Full Exam - General 1994 Ears/Nose/Throat oral cavity/pharynx/larynx Overall: oral mucosa clear 07/03/2018 None Full Exam - General 1994 Respiratory auscultation Overall: breath sounds clear bilaterally 07/03/2018 None Full Exam - General 1994 Respiratory auscultation Diffuse: diminished 07/03/2018 None Full Exam - General 1994 Respiratory respiratory effort/rhythm Overall: no retractions 07/03/2018 None Full Exam - General 1994 Respiratory respiratory effort/rhythm Overall: normal rate 07/03/2018 None Full Exam - General 1994 Cardiovascular auscultation of heart Overall: regular rate 07/03/2018 None Full Exam - General 1994 Cardiovascular auscultation of heart Overall: normal heart sounds 07/03/2018 None Full Exam - General 1994 Lymphatic neck nodes Overall: anterior cervical chain benign 07/03/2018 None Full Exam - General 1994 Lymphatic neck nodes Overall: posterior cervical chain benign 07/03/2018 None Full Exam - General 1994 Musculoskeletal spine, ribs and pelvis Spine: tender @ cervical spine 07/03/2018 None Full Exam - General 1994 Musculoskeletal spine, ribs and pelvis Spine: tender @ thoracic spine 07/03/2018 None Full Exam - General 1994 Musculoskeletal spine, ribs and pelvis Spine: tender @ lumbar spine 07/03/2018 None Full Exam - General 1994 Musculoskeletal gait and station Overall: normal gait 07/03/2018 None Full Exam - General 1994 Musculoskeletal gait and station Overall: normal station 07/03/2018 None Full Exam - General 1994 Musculoskeletal head and neck Overall: head atraumatic 07/03/2018 None Full Exam - General 1994 Neurologic cranial nerves Overall: crainial nerves 2 - 12 grossly intact 07/03/2018 None Full Exam - General 1994 Psychiatric orientation/consciousness Overall: oriented to person, place and time 07/03/2018 None Full Exam - General 1994 Psychiatric mood and affect Overall: normal mood and affect 07/03/2018 None Full Exam - General 1994 Psychiatric appearance Overall: well-groomed, good eye contact 07/03/2018 None Full Exam - General 1994 Constitutional general appearance Overall: well developed 06/05/2018 None Full Exam - General 1994 Constitutional general appearance Overall: in no acute distress 06/05/2018 None Full Exam - General 1994 Constitutional general appearance Overall: well nourished 06/05/2018 None Full Exam - General 1994 Eyes conjunctiva/eyelids Overall: conjunctiva clear 06/05/2018 None Full Exam - General 1994 Eyes conjunctiva/eyelids Overall: cornea clear 06/05/2018 None Full Exam - General 1994 Eyes conjunctiva/eyelids Overall: eyelids normal 06/05/2018 None Full Exam - General 1994 Eyes pupils and irises Overall: pupils equal, round, reactive to light and accomodation 06/05/2018 None Full Exam - General 1994 Ears/Nose/Throat lips/teeth/gingiva Overall: benign lips 06/05/2018 None Full Exam - General 1994 Ears/Nose/Throat oral cavity/pharynx/larynx Overall: oral mucosa clear 06/05/2018 None Full Exam - General 1994 Respiratory auscultation Overall: breath sounds clear bilaterally 06/05/2018 None Full Exam - General 1994 Respiratory auscultation Diffuse: diminished 06/05/2018 None Full Exam - General 1994 Respiratory respiratory effort/rhythm Overall: no retractions 06/05/2018 None Full Exam - General 1994 Respiratory respiratory effort/rhythm Overall: normal rate 06/05/2018 None Full Exam - General 1994 Cardiovascular auscultation of heart Overall: regular rate 06/05/2018 None Full Exam - General 1994 Cardiovascular auscultation of heart Overall: normal heart sounds 06/05/2018 None Full Exam - General 1994 Lymphatic neck nodes Overall: anterior cervical chain benign 06/05/2018 None Full Exam - General 1994 Lymphatic neck nodes Overall: posterior cervical chain benign 06/05/2018 None Full Exam - General 1994 Musculoskeletal spine, ribs and pelvis Spine: tender @ cervical spine 06/05/2018 None Full Exam - General 1994 Musculoskeletal spine, ribs and pelvis Spine: tender @ thoracic spine 06/05/2018 None Full Exam - General 1994 Musculoskeletal spine, ribs and pelvis Spine: tender @ lumbar spine 06/05/2018 None Full Exam - General 1994 Musculoskeletal gait and station Overall: normal gait 06/05/2018 None Full Exam - General 1994 Musculoskeletal gait and station Overall: normal station 06/05/2018 None Full Exam - General 1994 Musculoskeletal head and neck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 clinic when he is ready for a referral. . back pain- the patient was instructed in appropriate posture. The pt is to use prn antiinflammatories to manage acute pain. The patient is to call the office if the pain is worsening or does not improve. Abnormality on chest CT - will have pt at least do a repeat follow up scan to check for stability in 3 months. Pt is to consider referral to oncology or pulmonology and notify clinic when he is ready for a referral. . Chronic Back pain - the patient was counseled to always first attempt to use modalities other than pain medication for alleviation of the muscle spasms and pain. The patient was also encouraged to continue with back exercises as previously directed. Pt is to use pain medication as directed. If pain medications are used inappropriately or early refills are requested, the patient understands that is a breech of trust/contract and could result in the patient's termination from this medical practice. Pt is to continue with his life enrichment specialist for his ongoing back pain. . Ongoing ortho pain, carpal tunnel - defer to ortho Chronic Back pain - the patient was counseled to always first attempt to use modalities other than pain medication for alleviation of the muscle spasms and pain. The patient was also encouraged to continue with back exercises as previously directed. Pt is to use pain medication as directed. If pain medications are used inappropriately or early refills are requested, the patient understands that is a breech of trust/contract and could result in the patient's termination from this medical practice. Chronic Pain Syndrome - pt has chronic pain - has been maintained on current medications, has not sought out other medications, only uses PRN pain medications as directed, and understands the consequences of over-medication. . Chronic Back pain - the patient was counseled to always first attempt to use modalities other than pain medication for alleviation of the muscle spasms and pain. The patient was also encouraged to continue with back exercises as previously directed. Pt is to use pain medication as directed. If pain medications are used inappropriately or early refills are requested, the patient understands that is a breech of trust/contract and could result in the patient's termination from this medical practice. Pt is to continue with his life enrichment specialist for his ongoing back pain. Trigger Points - Injected trigger points today, pt given post-injection instructions, signs and symptoms for which to call the office. Pt to use heat to the muscles today, and take an anti-inflammatory today unless otherwise contraindicated by renal function or other disease process. . Chronic pain - the patient was counseled to always first attempt to use modalities other than pain medication for alleviation of the muscle spasms and pain. The patient was also encouraged to continue with back exercises as previously directed. Pt is to use pain medication as directed. If pain medications are used inappropriately or early refills are requested, the patient understands that is a breech of trust/contract and could result in the patient's termination from this medical practice. Pt is to follow up with ortho and notify clinic with any changes in the current treatment plan. . Chronic Back pain - will refer for second opinion - the patient was counseled to always first attempt to use modalities other than pain medication for alleviation of the muscle spasms and pain. The patient was also encouraged to continue with back exercises as previously directed. Pt is to use pain medication as directed. If pain medications are used inappropriately or early refills are requested, the patient understands that is a breech of trust/contract and could result in the patient's termination from this medical practice. Trigger Points - Injected trigger points today, pt given post-injection instructions, signs and symptoms for which to call the office. Pt to use heat to the muscles today, and take an anti-inflammatory today unless otherwise contraindicated by renal function or other disease process.
--- OUTSIDE RECORDS SUMMARY | 2019-01-14 10:44 | XMS REPORT | CCD ---
Author Author Shelly Carney Organization [facility] Address [address] [place] [address] Phone Care Team Providers Care Aix Architect Name Role Phone PP Unavailable CCM Unavailable Summary Purpose Interface Exchange Insurance Providers Payer name Policy type / Coverage type Covered green party ID Effective Begin Date Effective End Date [facility] Medicaid [id number] Unknown Family history Father Diagnosis Age At Onset Diabetes mellitus Type 2 Unknown Hyperlipidemia Unknown Brother Diagnosis Age At Onset Diabetes mellitus Type 2 Unknown Social History Social History Element Codes Description Effective Dates Marital status Unknown Single 11/18/2017 Number of children Unknown 2 11/18/[address]: 22123953 Current every day smoker 11/18/2017 Number of years using tobacco Unknown 10 - 20 11/18/2017 Number of cigarettes/day Unknown 10 (Half a pack) 11/18/[address]: 125606 Currently drinks alcohol 11/18/2017 Frequency of drinks SNOMED CT: 093331707 1- 4 drinks per week 11/18/2017 Allergies, [...] Fill Instructions baclofen 10 mg tablet RxNorm: 508157 1 Tablet(s) PO TID as needed muscle spasms 10/27/2018 11/25/2018 Active cyclobenzaprine 5 mg tablet RxNorm: 504704 1 Tablet(s) PO TID 10/27/2018 11/25/2018 Active baclofen 10 mg tablet RxNorm: 082342 Tablet(s) 1 Tablet(s) PO TID as needed muscle spasms 10/27/2018 10/26/2018 Inactive Lortab 5 mg-325 mg tablet RxNorm: 2388645 1 Tablet(s) PO Q6 as needed 09/30/2018 11/28/2018 Active cyclobenzaprine 5 mg tablet RxNorm: 825920 1 Tablet(s) PO TID 09/02/2018 10/01/2018 Inactive cyclobenzaprine 5 mg tablet RxNorm: 096922 1 Tablet(s) PO TID as needed muscle spasms 08/22/2018 09/01/2018 Inactive prednisone 20 mg tablet RxNorm: 761267 3 Tablet(s) PO daily 08/21/2018 08/23/2018 Inactive gabapentin 300 mg capsule RxNorm: 441929 1 Capsule(s) PO in morning and at noon and 2 pills at night 08/18/2018 12/15/2018 Active Lortab 5 mg-325 mg tablet RxNorm: 8191294 1 Tablet(s) PO Q6 as needed ok'd to fill 1 x 08/15/2018 09/29/2018 Inactive gabapentin 300 mg capsule RxNorm: 412373 1 Capsule(s) PO TID 08/04/2018 08/17/2018 Inactive baclofen 10 mg tablet RxNorm: 481242 1 Tablet(s) PO TID as needed muscle spasms 07/31/2018 08/09/2018 Inactive Lortab 5 mg-325 mg tablet RxNorm: 7637374 1 Tablet(s) PO Q6 as needed ok'd to fill 1 x 07/31/2018 08/14/2018 Inactive baclofen 10 mg tablet RxNorm: 560347 1 Tablet(s) PO TID as needed muscle spasms 07/25/2018 07/30/2018 Inactive baclofen 10 mg tablet RxNorm: 941843 1 Tablet(s) PO TID as needed muscle spasms 07/23/2018 07/24/2018 Inactive baclofen 10 mg tablet RxNorm: 526005 1 Tablet(s) PO TID as needed muscle spasms 07/18/2018 07/22/2018 Inactive ibuprofen 800 mg tablet RxNorm: 221218 1 Tablet(s) PO TID as needed 07/11/2018 11/07/2018 Active ibuprofen 800 mg tablet RxNorm: 273601 1 Tablet(s) PO TID as needed 07/11/2018 07/10/2018 Inactive ibuprofen 800 mg tablet RxNorm: 246681 1 Tablet(s) PO TID as needed 07/11/2018 07/10/2018 Inactive Duexis 800 mg-26.6 mg tablet RxNorm: 2358726 1 Tablet(s) PO TID as needed 07/08/2018 08/06/2018 Inactive prednisone 20 mg tablet RxNorm: 493927 1 Tablet(s) PO UD 07/08/2018 07/12/2018 Inactive 40,40,20,20,10,10, baclofen 10 mg tablet RxNorm: 928775 1 Tablet(s) PO TID as needed muscle spasms 07/08/2018 07/17/2018 Inactive prednisone 20 mg tablet RxNorm: 124030 2 Tablet(s) PO daily 07/03/2018 07/07/2018 Inactive baclofen 10 mg tablet RxNorm: 431985 1 Tablet(s) PO TID 07/03/2018 07/07/2018 Inactive Lortab 5 mg-325 mg tablet RxNorm: 9147251 1 Tablet(s) PO Q6 as needed ok'd to fill 1 x 06/20/2018 07/19/2018 Inactive Kenalog 40 mg/mL suspension for injection RxNorm: 2679943 1 Milliliter(s) Inj 06/05/2018 06/05/2018 Inactive cyclobenzaprine 5 mg tablet RxNorm: 106139 1 Tablet(s) PO TID as needed muscle spasms 06/03/2018 08/21/2018 Inactive Lortab 5 mg-325 mg tablet RxNorm: 6899767 1 Tablet(s) PO Q6 as needed ok'd to fill 1 x 05/08/2018 06/06/2018 Inactive cyclobenzaprine 5 mg tablet RxNorm: 461702 1 Tablet(s) PO TID as needed muscle spasms 05/02/2018 06/02/2018 Inactive Lortab 5 mg-325 mg tablet RxNorm: 9861012 1 Tablet(s) PO Q6 04/24/2018 05/07/2018 Inactive gabapentin 300 mg capsule RxNorm: 133484 1 Capsule(s) PO TID 04/18/2018 08/03/2018 Inactive gabapentin 300 mg capsule RxNorm: 705880 1 Capsule(s) PO TID 02/14/2018 04/17/2018 Inactive gabapentin 300 mg capsule RxNorm: 639393 1 Capsule(s) PO TID 01/14/2018 02/13/2018 Inactive gabapentin 300 mg capsule RxNorm: 931926 1 Capsule(s) PO TID 12/04/2017 01/02/2018 Inactive Zorvolex 35 mg capsule RxNorm: 4571224 1 Capsule(s) PO TID as needed for pain 11/25/2017 12/24/2017 Inactive Zorvolex 35 mg capsule RxNorm: 0806622 1 Capsule(s) PO TID as needed for pain 11/21/2017 11/24/2017 Inactive Zorvolex 35 mg capsule RxNorm: 1579633 1 Capsule(s) PO TID as needed for pain 11/21/2017 11/20/2017 Inactive cyclobenzaprine 5 mg tablet RxNorm: 359722 1 Tablet(s) PO TID as needed muscle spasms 11/18/2017 05/01/2018 Inactive gabapentin 300 mg capsule RxNorm: 228256 1 Capsule(s) PO BID No Start Date 12/03/2017 Inactive Medication Administered Medication Codes Instructions Start Date Status Kenalog 40 mg/mL suspension for injection RxNorm: 9701860 1Milliliter 06/05/2018 No longer Active Immunizations No [...] Procedure Codes Date INJ TRIGGER POINT 12 [facility] CPT-4: 23981 06/05/2018 TRIAMCINOLONE ACET INJ NOS CPT-4: J3301 06/05/2018 TRIAMCINOLONE ACET INJ NOS CPT-4: J3301 05/01/2018 INJ TRIGGER POINT /2 [facility] CPT-4: 77788 05/01/2018 Vital Signs Date Vital 08/21/2018 Blood Pressure 1: 160/86 Code: 8480-6 Heart Rate 1: 95 bpm Height: 5'7" SpO2: 98% 08/18/2018 Blood Pressure 1: 152/96 Code: 8480-6 Heart Rate 1: 118 bpm Height: 5'7" SpO2: 97% 07/03/2018 Blood Pressure 1: 130/82 Code: 8480-6 BMI: 28.5 Code: 29376-9 Heart Rate 1: 92 bpm Height: 5'7" SpO2: 98% Weight: 182 lbs 06/05/2018 Blood Pressure 1: 140/68 Code: 8480-6 BMI: 28.5 Code: 31449-9 Heart Rate 1: 97 bpm Height: 5'7" SpO2: 98% Weight: 182 lbs 05/01/2018 Blood Pressure 1: 124/72 Code: 8480-6 BMI: 27.1 Code: 89641-8 Heart Rate 1: 86 bpm Height: 5'7" SpO2: 97% Weight: 173 lbs 03/24/2018 Blood Pressure 1: 136/62 Code: 8480-6 BMI: 27.4 Code: 04876-0 Heart Rate 1: 96 bpm Height: 5'7" SpO2: 98% Weight: 175 lbs 11/18/2017 Blood Pressure 1: 152/80 Code: 8480-6 BMI: 27.6 Code: 70390-6 Heart Rate 1: 92 bpm Height: 5'7" [...] data Encounters Encounter Performer Location Codes Date 90743 EST. PATIENT, LEVEL III Diagnosis: Carpal tunnel syndrome, left upper limb[ICD10: G56.02] Diagnosis: Carpal tunnel syndrome, right upper limb[ICD10: G56.01] Diagnosis: Cervicalgia[ICD10: M54.2] Diagnosis: Low back pain[ICD10: M54.5] Diagnosis: Muscle spasm of back[ICD10: M62.830] Diagnosis: Pain in thoracic spine[ICD10: M54.6] [facility] CPT- 4: 30572 08/21/2018 22059 EST. PATIENT, LEVEL III Diagnosis: Low back pain[ICD10: M54.5] Diagnosis: Pain in thoracic spine[ICD10: M54.6] Diagnosis: Muscle spasm of back[ICD10: M62.830] Diagnosis: Cervicalgia[ICD10: M54.2] Diagnosis: Carpal tunnel syndrome, left upper limb[ICD10: G56.02] Diagnosis: Carpal tunnel syndrome, right upper limb[ICD10: G56.01] [facility] CPT-4: 45749 08/18/2018 99894 EST. PATIENT, LEVEL III Diagnosis: Low back pain[ICD10: M54.5] Diagnosis: Pain in thoracic spine[ICD10: M54.6] Diagnosis: Muscle spasm of back[ICD10: M62.830] Diagnosis: Cervicalgia[ICD10: M54.2] [facility] MD, [facility] CPT-4: 75243 07/03/2018 29407 EST. PATIENT, LEVEL III Diagnosis: Low back pain[ICD10: M54.5] Diagnosis: Pain in thoracic spine[ICD10: M54.6] Diagnosis: Muscle spasm of back[ICD10: M62.830] Shelly Galvez MD, [facility] CPT- 4: 76539 06/05/2018 11372 EST. PATIENT, LEVEL IV Diagnosis: Low back pain[ICD10: M54.5] Diagnosis: Pain in thoracic spine[ICD10: M54.6] Diagnosis: Muscle spasm of back[ICD10: M62.830] [facility]ly Galvez MD, [facility] CPT- 4: 07177 05/01/2018 54159 EST. PATIENT, LEVEL IV Diagnosis: Low back pain[ICD10: M54.5] Diagnosis: Pain in thoracic spine[ICD10: M54.6] Diagnosis: Muscle spasm of back[ICD10: M62.830] [facility]ly Galvez MD, [facility] CPT- 4: 60702 03/24/2018 OFFICE VISIT, NEW - LEVEL 4 Diagnosis: Low back pain[ICD10: M54.5] Diagnosis: Pain in thoracic spine[ICD10: M54.6] Diagnosis: Abnormal findings on diagnostic imaging of other specified body structures[ICD10: R93.8] Diagnosis: Muscle spasm of back[ICD10: M62.830] [facility], [facility] CPT- 4: 24841 11/18/2017 Plan of Care Planned Activity Notes [...] of over-medication. 08/21/2018 Appointment: Shelly Carney [facility]Ptel: [facility] [place] 2[place] (15 min) Moderate 08/21/2018 Patient Education: Patient [...] treatment plan. 08/18/2018 Appointment: Shelly Carney WPtel: [facility] [place] 2[place]5 [facility] (15 min) Moderate 08/18/2018 Patient Education: Patient [...] practice. 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 07/03/2018 Appointment: Shelly Carney [facility]Ptel[facility] [phone] [facility] [place] (15 min) Moderate 07/03/2018 Patient Education: Patient Medication Summary Completed 07/03/2018 Patient Education: Back Pain Completed 07/03/2018 Patient Education: .Cervicalgia Neck Pain Completed 07/03/2018 Appointment: Shelly Carney [facility]Ptel[facility] [phone] [facility] [place] (15 min) Moderate 06/30/2018 Care Plan: Referral Order SNOMED-CT : [id number] Pending 06/09/2018 Visit Plan: Chronic Back pain [...] process. 06/05/2018 Appointment: Shelly Carney [facility]Ptel[facility] [phone] [facility] [place] (15 min) Moderate 06/05/2018 Patient Education: [...] practice. 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 Trigger Points - Injected trigger points today, pt given post-injection instructions, signs and symptoms for which to call the office. Pt to use heat to the muscles today, and take an anti-inflammatory today unless otherwise contraindicated by renal function or other disease process. 05/01/2018 Appointment: Shelly Carney [facility]el[facility] [phone] [facility] (15 min) Moderate 05/01/2018 Patient Education: Patient [...] practice. 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 03/24/2018 Appointment: Shel[facility] Carney [facility]Ptel[facility] [phone] [facility] (30 min) Complex 03/24/2018 Patient Education: Patient Medication Summary Completed 03/24/2018 Referral: Ortho, [facility] WPtel: [address] [id number] Referral Initiated 12/02/2017 Care Plan: Referral Order SNOMED-CT : [id number] Pending 11/28/2017 Visit Plan: back pain- the [...] referral. 11/18/2017 Appointment: Rommel Shelly [facility]el[facility] [phone] [facility] New Patient 11/18/2017 Patient Education: Patient Medication Summary Completed 11/18/2017 Referral: Sudha Ruby Referral Initiated Referral: [facility] WPtel: [address] [id number] Referral Initiated Instructions Comment . Chronic Back [...] practice. 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 . [...] practice. 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 . [...] practice. 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 Trigger [...]
--- OUTSIDE RECORDS SUMMARY | 2019-01-14 10:45 | XMS REPORT | CCD ---
Author Author Shelly Carney Organization [facility] Address [address] [place] [address] Phone Care Team Providers Care Service Person Name Role Phone PP Unavailable CCM Unavailable Summary Purpose Interface Exchange Insurance Providers Payer name Policy type / Coverage type Covered constitution party ID Effective Begin Date Effective End Date [facility] Medicaid [id number] Unknown Family history Father Diagnosis Age At Onset Diabetes mellitus Type 2 Unknown Hyperlipidemia Unknown Brother Diagnosis Age At Onset Diabetes mellitus Type 2 Unknown Social History Social History Element Codes Description Effective Dates Marital status Unknown Single 11/18/2017 Number of children Unknown 2 11/18/[address]: 48206420 Current every day smoker 11/18/2017 Number of years using tobacco Unknown 10 - 20 11/18/2017 Number of cigarettes/day Unknown 10 (Half a pack) 11/18/[address]: 106305 Currently drinks alcohol 11/18/2017 Frequency of drinks SNOMED CT: 065785419 1- 4 drinks per week 11/18/2017 Allergies, [...] Fill Instructions baclofen 10 mg tablet RxNorm: 323813 Tablet(s) 1 Tablet(s) PO TID as needed muscle spasms 10/27/2018 11/05/2018 Active Lortab 5 mg-325 mg tablet RxNorm: 8165343 1 Tablet(s) PO Q6 as needed 09/30/2018 11/28/2018 Active cyclobenzaprine 5 mg tablet RxNorm: 435158 1 Tablet(s) PO TID 09/02/2018 10/01/2018 Inactive cyclobenzaprine 5 mg tablet RxNorm: 328377 1 Tablet(s) PO TID as needed muscle spasms 08/22/2018 09/01/2018 Inactive prednisone 20 mg tablet RxNorm: 400212 3 Tablet(s) PO daily 08/21/2018 08/23/2018 Inactive gabapentin 300 mg capsule RxNorm: 448815 1 Capsule(s) PO in morning and at noon and 2 pills at night 08/18/2018 12/15/2018 Active Lortab 5 mg-325 mg tablet RxNorm: 2517793 1 Tablet(s) PO Q6 as needed ok'd to fill 1 x 08/15/2018 09/29/2018 Inactive gabapentin 300 mg capsule RxNorm: 333586 1 Capsule(s) PO TID 08/04/2018 08/17/2018 Inactive baclofen 10 mg tablet RxNorm: 208203 1 Tablet(s) PO TID as needed muscle spasms 07/31/2018 08/09/2018 Inactive Lortab 5 mg-325 mg tablet RxNorm: 0512946 1 Tablet(s) PO Q6 as needed ok'd to fill 1 x 07/31/2018 08/14/2018 Inactive baclofen 10 mg tablet RxNorm: 939869 1 Tablet(s) PO TID as needed muscle spasms 07/25/2018 07/30/2018 Inactive baclofen 10 mg tablet RxNorm: 664231 1 Tablet(s) PO TID as needed muscle spasms 07/23/2018 07/24/2018 Inactive baclofen 10 mg tablet RxNorm: 073789 1 Tablet(s) PO TID as needed muscle spasms 07/18/2018 07/22/2018 Inactive ibuprofen 800 mg tablet RxNorm: 796880 1 Tablet(s) PO TID as needed 07/11/2018 11/07/2018 Active ibuprofen 800 mg tablet RxNorm: 938305 1 Tablet(s) PO TID as needed 07/11/2018 07/10/2018 Inactive ibuprofen 800 mg tablet RxNorm: 766182 1 Tablet(s) PO TID as needed 07/11/2018 07/10/2018 Inactive Duexis 800 mg-26.6 mg tablet RxNorm: 7467728 1 Tablet(s) PO TID as needed 07/08/2018 08/06/2018 Inactive prednisone 20 mg tablet RxNorm: 008612 1 Tablet(s) PO UD 07/08/2018 07/12/2018 Inactive 40,40,20,20,10,10, baclofen 10 mg tablet RxNorm: 802734 1 Tablet(s) PO TID as needed muscle spasms 07/08/2018 07/17/2018 Inactive prednisone 20 mg tablet RxNorm: 467176 2 Tablet(s) PO daily 07/03/2018 07/07/2018 Inactive baclofen 10 mg tablet RxNorm: 355391 1 Tablet(s) PO TID 07/03/2018 07/07/2018 Inactive Lortab 5 mg-325 mg tablet RxNorm: 1232826 1 Tablet(s) PO Q6 as needed ok'd to fill 1 x 06/20/2018 07/19/2018 Inactive Kenalog 40 mg/mL suspension for injection RxNorm: 9603218 1 Milliliter(s) Inj 06/05/2018 06/05/2018 Inactive cyclobenzaprine 5 mg tablet RxNorm: 163087 1 Tablet(s) PO TID as needed muscle spasms 06/03/2018 08/21/2018 Inactive Lortab 5 mg-325 mg tablet RxNorm: 4212747 1 Tablet(s) PO Q6 as needed ok'd to fill 1 x 05/08/2018 06/06/2018 Inactive cyclobenzaprine 5 mg tablet RxNorm: 049418 1 Tablet(s) PO TID as needed muscle spasms 05/02/2018 06/02/2018 Inactive Lortab 5 mg-325 mg tablet RxNorm: 1093652 1 Tablet(s) PO Q6 04/24/2018 05/07/2018 Inactive gabapentin 300 mg capsule RxNorm: 470318 1 Capsule(s) PO TID 04/18/2018 08/03/2018 Inactive gabapentin 300 mg capsule RxNorm: 482091 1 Capsule(s) PO TID 02/14/2018 04/17/2018 Inactive gabapentin 300 mg capsule RxNorm: 658194 1 Capsule(s) PO TID 01/14/2018 02/13/2018 Inactive gabapentin 300 mg capsule RxNorm: 814324 1 Capsule(s) PO TID 12/04/2017 01/02/2018 Inactive Zorvolex 35 mg capsule RxNorm: 6766466 1 Capsule(s) PO TID as needed for pain 11/25/2017 12/24/2017 Inactive Zorvolex 35 mg capsule RxNorm: 3316182 1 Capsule(s) PO TID as needed for pain 11/21/2017 11/24/2017 Inactive Zorvolex 35 mg capsule RxNorm: 9942952 1 Capsule(s) PO TID as needed for pain 11/21/2017 11/20/2017 Inactive cyclobenzaprine 5 mg tablet RxNorm: 011959 1 Tablet(s) PO TID as needed muscle spasms 11/18/2017 05/01/2018 Inactive gabapentin 300 mg capsule RxNorm: 682570 1 Capsule(s) PO BID No Start Date 12/03/2017 Inactive Medication Administered Medication Codes Instructions Start Date Status Kenalog 40 mg/mL suspension for injection RxNorm: 0140199 1Milliliter 06/05/2018 No longer Active Immunizations No [...] Procedures Procedure Codes Date INJ TRIGGER POINT 1/2 MUSCL CPT-4: 66126 06/05/2018 TRIAMCINOLONE ACET INJ NOS CPT-4: J3301 06/05/2018 TRIAMCINOLONE ACET INJ NOS CPT-4: J3301 05/01/2018 INJ TRIGGER POINT 1/2 MUSCL CPT-4: 40287 05/01/2018 Vital Signs Date Vital 08/21/2018 Blood Pressure 1: 160/86 Code: 8480-6 Heart Rate 1: 95 bpm Height: 5'7" SpO2: 98% 08/18/2018 Blood Pressure 1: 152/96 Code: 8480-6 Heart Rate 1: 118 bpm Height: 5'7" SpO2: 97% 07/03/2018 Blood Pressure 1: 130/82 Code: 8480-6 BMI: 28.5 Code: 80589-9 Heart Rate 1: 92 bpm Height: 5'7" SpO2: 98% Weight: 182 lbs 06/05/2018 Blood Pressure 1: 140/68 Code: 8480-6 BMI: 28.5 Code: 69092-2 Heart Rate 1: 97 bpm Height: 5'7" SpO2: 98% Weight: 182 lbs 05/01/2018 Blood Pressure 1: 124/72 Code: 8480-6 BMI: 27.1 Code: 08362-3 Heart Rate 1: 86 bpm Height: 5'7" SpO2: 97% Weight: 173 lbs 03/24/2018 Blood Pressure 1: 136/62 Code: 8480-6 BMI: 27.4 Code: 04876-5 Heart Rate 1: 96 bpm Height: 5'7" SpO2: 98% Weight: 175 lbs 11/18/2017 Blood Pressure 1: 152/80 Code: 8480-6 BMI: 27.6 Code: 77181-3 Heart Rate 1: 92 bpm Height: 5'7" [...] data Encounters Encounter Performer Location Codes Date 10945 EST. PATIENT, LEVEL III Diagnosis: Carpal tunnel syndrome, left upper limb[ICD10: G56.02] Diagnosis: Carpal tunnel syndrome, right upper limb[ICD10: G56.01] Diagnosis: Cervicalgia[ICD10: M54.2] Diagnosis: Low back pain[ICD10: M54.5] Diagnosis: Muscle spasm of back[ICD10: M62.830] Diagnosis: Pain in thoracic spine[ICD10: M54.6] Shelly Galvez MD, [facility] CPT- 4: 42894 08/21/2018 47706 EST. PATIENT, LEVEL III Diagnosis: Low back pain[ICD10: M54.5] Diagnosis: Pain in thoracic spine[ICD10: M54.6] Diagnosis: Muscle spasm of back[ICD10: M62.830] Diagnosis: Cervicalgia[ICD10: M54.2] Diagnosis: Carpal tunnel syndrome, left upper limb[ICD10: G56.02] Diagnosis: Carpal tunnel syndrome, right upper limb[ICD10: G56.01] Shelly Galvez MD, [facility] CPT-4: 43309 08/18/2018 49733 EST. PATIENT, LEVEL III Diagnosis: Low back pain[ICD10: M54.5] Diagnosis: Pain in thoracic spine[ICD10: M54.6] Diagnosis: Muscle spasm of back[ICD10: M62.830] Diagnosis: Cervicalgia[ICD10: M54.2] Shelly Galvez MD, [facility] CPT-4: 09510 07/03/2018 18253 EST. PATIENT, LEVEL III Diagnosis: Low back pain[ICD10: M54.5] Diagnosis: Pain in thoracic spine[ICD10: M54.6] Diagnosis: Muscle spasm of back[ICD10: M62.830] Shelly Galvez MD, [facility] CPT- 4: 78433 06/05/2018 09592 EST. PATIENT, LEVEL IV Diagnosis: Low back pain[ICD10: M54.5] Diagnosis: Pain in thoracic spine[ICD10: M54.6] Diagnosis: Muscle spasm of back[ICD10: M62.830] Shelly Galvez MD, [facility] CPT- 4: 20618 05/01/2018 20066 EST. PATIENT, LEVEL IV Diagnosis: Low back pain[ICD10: M54.5] Diagnosis: Pain in thoracic spine[ICD10: M54.6] Diagnosis: Muscle spasm of back[ICD10: M62.830] Shelly Galvez MD, [facility] CPT- 4: 66873 03/24/2018 OFFICE VISIT, NEW - LEVEL 4 Diagnosis: Low back pain[ICD10: M54.5] Diagnosis: Pain in thoracic spine[ICD10: M54.6] Diagnosis: Abnormal findings on diagnostic imaging of other specified body structures[ICD10: R93.8] Diagnosis: Muscle spasm of back[ICD10: M62.830] Shelly Galvez MD, [facility] CPT- 4: 44305 11/18/2017 Plan of Care Planned Activity Notes [...] of over-medication. 08/21/2018 Appointment: Shelly Carney WPtel: [phone] [facility] [place] (15 min) Moderate 08/21/2018 Patient Education: [...] treatment plan. 08/18/2018 Appointment: Shelly Carney WPtel: [phone] [facility] [place] (15 min) Moderate 08/18/2018 Patient Education: [...] practice. 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 07/03/2018 Appointment: [facility] [phone] [facility] [place] (15 min) Moderate 07/03/2018 Patient Education: Patient Medication Summary Completed 07/03/2018 Patient Education: Back Pain Completed 07/03/2018 Patient Education: .Cervicalgia Neck Pain Completed 07/03/2018 Appointment: Shelly Carney WPtel: [facility] [place] (15 min) Moderate 06/30/2018 Care Plan: Referral Order SNOMED-CT : 728807375 Pending 06/09/2018 Visit Plan: Chronic Back pain [...] disease process. 06/05/2018 Appointment: Shelly Carney [facility]Ptel: [phone] [facility] [place] (15 min) Moderate [...] practice. 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 Trigger Points - Injected trigger points today, pt given post-injection instructions, signs and symptoms for which to call the office. Pt to use heat to the muscles today, and take an anti-inflammatory today unless otherwise contraindicated by renal function or other disease process. 05/01/2018 Appointment: Shelly Carney WPtel: [phone] [facility] [place] (15 min) Moderate [...] practice. 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 03/24/2018 Appointment: Shelly Carney WPtel: [phone] [facility] (30 min) Complex 03/24/2018 Patient Education: Patient Medication Summary Completed 03/24/2018 Referral: Ortho, [facility] WPtel: [phone] [id number] Referral Initiated 12/02/2017 Care Plan: Referral Order SNOMED-CT : 140498649 Pending 11/28/2017 Visit Plan: back pain- the [...] is ready for a referral. 11/18/2017 Appointment: Shelly Carney WPtel: [facility] New Patient 11/18/2017 Patient Education: Patient Medication Summary Completed 11/18/2017 Referral: Sudha Ruby Referral Initiated Referral: Ortho, [place] WPtel: [address] [id number] Referral Initiated Instructions Comment . Chronic Back [...] practice. 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 . [...] practice. 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 . [...] practice. 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 Trigger [...]
--- OUTSIDE RECORDS SUMMARY | 2019-01-14 10:46 | XMS REPORT | CCD ---
Author Author Shelly Carney Organization [facility] Address [address] [place] [address] Phone Care Team Providers Care Interior Mechanic Name Role Phone PP Unavailable CCM Unavailable Summary Purpose Interface Exchange Insurance Providers Payer name Policy type / Coverage type Covered green party ID Effective Begin Date Effective End Date [facility] Medicaid [id number] Unknown Family history Father Diagnosis Age At Onset Diabetes mellitus Type 2 Unknown Hyperlipidemia Unknown Brother Diagnosis Age At Onset Diabetes mellitus Type 2 Unknown Social History Social History Element Codes Description Effective Dates Marital status Unknown Single 11/18/2017 Number of children Unknown 2 11/18/[address]: 73635396 Current every day smoker 11/18/2017 Number of years using tobacco Unknown 10 - 20 11/18/2017 Number of cigarettes/day Unknown 10 (Half a pack) 11/18/[address]: 251846 Currently drinks alcohol 11/18/2017 Frequency of drinks SNOMED CT: 334129402 1- 4 drinks per week 11/18/2017 Allergies, [...] Start Date Stop Date Status Fill Instructions Lortab 5 mg-325 mg tablet RxNorm: 6960215 1 Tablet(s) PO Q6 as needed 09/30/2018 11/28/2018 Active cyclobenzaprine 5 mg tablet RxNorm: 674883 1 Tablet(s) PO TID 09/02/2018 10/01/2018 Active cyclobenzaprine 5 mg tablet RxNorm: 771104 1 Tablet(s) PO TID as needed muscle spasms 08/22/2018 09/01/2018 Inactive prednisone 20 mg tablet RxNorm: 255186 3 Tablet(s) PO daily 08/21/2018 08/23/2018 Inactive gabapentin 300 mg capsule RxNorm: 238526 1 Capsule(s) PO in morning and at noon and 2 pills at night 08/18/2018 12/15/2018 Active Lortab 5 mg-325 mg tablet RxNorm: 1266303 1 Tablet(s) PO Q6 as needed ok'd to fill 1 x 08/15/2018 09/29/2018 Inactive gabapentin 300 mg capsule RxNorm: 264356 1 Capsule(s) PO TID 08/04/2018 08/17/2018 Inactive baclofen 10 mg tablet RxNorm: 335664 1 Tablet(s) PO TID as needed muscle spasms 07/31/2018 08/09/2018 Inactive Lortab 5 mg-325 mg tablet RxNorm: 1249969 1 Tablet(s) PO Q6 as needed ok'd to fill 1 x 07/31/2018 08/14/2018 Inactive baclofen 10 mg tablet RxNorm: 855425 1 Tablet(s) PO TID as needed muscle spasms 07/25/2018 07/30/2018 Inactive baclofen 10 mg tablet RxNorm: 183899 1 Tablet(s) PO TID as needed muscle spasms 07/23/2018 07/24/2018 Inactive baclofen 10 mg tablet RxNorm: 919386 1 Tablet(s) PO TID as needed muscle spasms 07/18/2018 07/22/2018 Inactive ibuprofen 800 mg tablet RxNorm: 932811 1 Tablet(s) PO TID as needed 07/11/2018 11/07/2018 Active ibuprofen 800 mg tablet RxNorm: 059582 1 Tablet(s) PO TID as needed 07/11/2018 07/10/2018 Inactive ibuprofen 800 mg tablet RxNorm: 734530 1 Tablet(s) PO TID as needed 07/11/2018 07/10/2018 Inactive Duexis 800 mg-26.6 mg tablet RxNorm: 1824704 1 Tablet(s) PO TID as needed 07/08/2018 08/06/2018 Inactive prednisone 20 mg tablet RxNorm: 390011 1 Tablet(s) PO UD 07/08/2018 07/12/2018 Inactive 40,40,20,20,10,10, baclofen 10 mg tablet RxNorm: 299088 1 Tablet(s) PO TID as needed muscle spasms 07/08/2018 07/17/2018 Inactive prednisone 20 mg tablet RxNorm: 356946 2 Tablet(s) PO daily 07/03/2018 07/07/2018 Inactive baclofen 10 mg tablet RxNorm: 137308 1 Tablet(s) PO TID 07/03/2018 07/07/2018 Inactive Lortab 5 mg-325 mg tablet RxNorm: 6961177 1 Tablet(s) PO Q6 as needed ok'd to fill 1 x 06/20/2018 07/19/2018 Inactive Kenalog 40 mg/mL suspension for injection RxNorm: 0319249 1 Milliliter(s) Inj 06/05/2018 06/05/2018 Inactive cyclobenzaprine 5 mg tablet RxNorm: 968171 1 Tablet(s) PO TID as needed muscle spasms 06/03/2018 08/21/2018 Inactive Lortab 5 mg-325 mg tablet RxNorm: 3713915 1 Tablet(s) PO Q6 as needed ok'd to fill 1 x 05/08/2018 06/06/2018 Inactive cyclobenzaprine 5 mg tablet RxNorm: 729282 1 Tablet(s) PO TID as needed muscle spasms 05/02/2018 06/02/2018 Inactive Lortab 5 mg-325 mg tablet RxNorm: 2307083 1 Tablet(s) PO Q6 04/24/2018 05/07/2018 Inactive gabapentin 300 mg capsule RxNorm: 201673 1 Capsule(s) PO TID 04/18/2018 08/03/2018 Inactive gabapentin 300 mg capsule RxNorm: 516621 1 Capsule(s) PO TID 02/14/2018 04/17/2018 Inactive gabapentin 300 mg capsule RxNorm: 540124 1 Capsule(s) PO TID 01/14/2018 02/13/2018 Inactive gabapentin 300 mg capsule RxNorm: 257994 1 Capsule(s) PO TID 12/04/2017 01/02/2018 Inactive Zorvolex 35 mg capsule RxNorm: 5227972 1 Capsule(s) PO TID as needed for pain 11/25/2017 12/24/2017 Inactive Zorvolex 35 mg capsule RxNorm: 1756158 1 Capsule(s) PO TID as needed for pain 11/21/2017 11/24/2017 Inactive Zorvolex 35 mg capsule RxNorm: 3037926 1 Capsule(s) PO TID as needed for pain 11/21/2017 11/20/2017 Inactive cyclobenzaprine 5 mg tablet RxNorm: 864415 1 Tablet(s) PO TID as needed muscle spasms 11/18/2017 05/01/2018 Inactive gabapentin 300 mg capsule RxNorm: 407042 1 Capsule(s) PO BID No Start Date 12/03/2017 Inactive Medication Administered Medication Codes Instructions Start Date Status Kenalog 40 mg/mL suspension for injection RxNorm: 0535963 1Milliliter 06/05/2018 No longer Active Immunizations No [...] sounds 08/18/2018 None Full Exam - General 1995 Lymphatic neck nodes Overall: anterior cervical chain benign 08/18/2018 None Full Exam - General 1995 Lymphatic neck nodes Overall: posterior cervical chain benign 08/18/2018 None Full Exam - General 1995 Musculoskeletal spine, ribs and pelvis Spine: tender [...] Date INJ TRIGGER POINT 1/2 MUSCL CPT-4: 88933 06/05/2018 TRIAMCINOLONE ACET INJ NOS CPT-4: J3301 06/05/2018 TRIAMCINOLONE ACET INJ NOS CPT-4: J3301 05/01/2018 INJ TRIGGER POINT 1/2 MUSCL CPT-4: 01004 05/01/2018 Vital Signs Date Vital 08/21/2018 Blood Pressure 1: 160/86 Code: 8480-6 Heart Rate 1: 95 bpm Height: 5'7" SpO2: 98% 08/18/2018 Blood Pressure 1: 152/96 Code: 8480-6 Heart Rate 1: 118 bpm Height: 5'7" SpO2: 97% 07/03/2018 Blood Pressure 1: 130/82 Code: 8480-6 BMI: 28.5 Code: 68354-5 Heart Rate 1: 92 bpm Height: 5'7" SpO2: 98% Weight: 182 lbs 06/05/2018 Blood Pressure 1: 140/68 Code: 8480-6 BMI: 28.5 Code: 11629-5 Heart Rate 1: 97 bpm Height: 5'7" SpO2: 98% Weight: 182 lbs 05/01/2018 Blood Pressure 1: 124/72 Code: 8480-6 BMI: 27.1 Code: 65698-3 Heart Rate 1: 86 bpm Height: 5'7" SpO2: 97% Weight: 173 lbs 03/24/2018 Blood Pressure 1: 136/62 Code: 8480-6 BMI: 27.4 Code: 07518-4 Heart Rate 1: 96 bpm Height: 5'7" SpO2: 98% Weight: 175 lbs 11/18/2017 Blood Pressure 1: 152/80 Code: 8480-6 BMI: 27.6 Code: 75624-9 Heart Rate 1: 92 bpm Height: 5'7" [...] data Encounters Encounter Performer Location Codes Date 43727 EST. PATIENT, LEVEL III Diagnosis: Carpal tunnel syndrome, left upper limb[ICD10: G56.02] Diagnosis: Carpal tunnel syndrome, right upper limb[ICD10: G56.01] Diagnosis: Cervicalgia[ICD10: M54.2] Diagnosis: Low back pain[ICD10: M54.5] Diagnosis: Muscle spasm of back[ICD10: M62.830] Diagnosis: Pain in thoracic spine[ICD10: M54.6] Shelly Galvez MD, [facility] CPT- 4: 86109 08/21/2018 39495 EST. PATIENT, LEVEL III Diagnosis: Low back pain[ICD10: M54.5] Diagnosis: Pain in thoracic spine[ICD10: M54.6] Diagnosis: Muscle spasm of back[ICD10: M62.830] Diagnosis: Cervicalgia[ICD10: M54.2] Diagnosis: Carpal tunnel syndrome, left upper limb[ICD10: G56.02] Diagnosis: Carpal tunnel syndrome, right upper limb[ICD10: G56.01] Shelly Galvez MD, [facility] CPT-4: 12856 08/18/2018 11728 EST. PATIENT, LEVEL III Diagnosis: Low back pain[ICD10: M54.5] Diagnosis: Pain in thoracic spine[ICD10: M54.6] Diagnosis: Muscle spasm of back[ICD10: M62.830] Diagnosis: Cervicalgia[ICD10: M54.2] Shelly Galvez MD, [facility] CPT-4: 96328 07/03/2018 90769 EST. PATIENT, LEVEL III Diagnosis: Low back pain[ICD10: M54.5] Diagnosis: Pain in thoracic spine[ICD10: M54.6] Diagnosis: Muscle spasm of back[ICD10: M62.830] Shelly Galvez MD, [facility] CPT- 4: 22784 06/05/2018 45980 EST. PATIENT, LEVEL IV Diagnosis: Low back pain[ICD10: M54.5] Diagnosis: Pain in thoracic spine[ICD10: M54.6] Diagnosis: Muscle spasm of back[ICD10: M62.830] Shelly Galvez MD, [facility] CPT- 4: 75409 05/01/2018 55194 EST. PATIENT, LEVEL IV Diagnosis: Low back pain[ICD10: M54.5] Diagnosis: Pain in thoracic spine[ICD10: M54.6] Diagnosis: Muscle spasm of back[ICD10: M62.830] Shelly Galvez MD, [facility] CPT- 4: 34629 03/24/2018 OFFICE VISIT, NEW - LEVEL 4 Diagnosis: Low back pain[ICD10: M54.5] Diagnosis: Pain in thoracic spine[ICD10: M54.6] Diagnosis: Abnormal findings on diagnostic imaging of other specified body structures[ICD10: R93.8] Diagnosis: Muscle spasm of back[ICD10: M62.830] Shelly Galvez MD, [facility] CPT- 4: 14924 11/18/2017 Plan of Care Planned Activity Notes [...] of over-medication. 08/21/2018 [facility]ment[phone] [place] (15 min) Moderate 08/21/2018 Patient Education: [...] plan. 08/18/2018 Appointment: Shelly Carney WPtel: [phone] [facility] [place] (15 min) Moderate 08/18/2018 Patient Education: [...] practice. 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 07/03/2018 Appointment: [facility] Car[phone] [facility] [place] (15 min) Moderate 07/03/2018 Patient Education: Patient Medication Summary Completed 07/03/2018 Patient Education: Back Pain Completed 07/03/2018 Patient Education: .Cervicalgia Neck Pain Completed 07/03/2018 Appointment: Shelly Carney WPtel: [phone] [facility] [place] (15 min) Moderate 06/30/2018 Care Plan: Referral Order SNOMED-CT : 018040513 Pending 06/09/2018 Visit Plan: Chronic Back pain [...] disease process. 06/05/2018 Appointment: Shelly Carney WPtel: [phone] [facility] [place] (15 min) Moderate 06/05/2018 Patient Education: [...] practice. 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 Trigger Points - Injected trigger points today, pt given post-injection instructions, signs and symptoms for which to call the office. Pt to use heat to the muscles today, and take an anti-inflammatory today unless otherwise contraindicated by renal function or other disease process. 05/01/2018 Appointment: [facility] Car[phone] [facility] [place] (15 min) Moderate 05/01/2018 Patient Education: [...] practice. 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 03/24/2018 Appointment: Shelly Carney WPtel: [phone] [facility] (30 min) Complex 03/24/2018 Patient Education: Patient Medication Summary Completed 03/24/2018 Referral: C[facility]ric [facility] W[facility]el: [phone] [facility] [address] [place], [place] [id number] Referral Initiated 12/02/2017 Care Plan: Referral Order SNOMED-CT : 145518494 Pending 11/28/2017 Visit Plan: back pain- the [...] a referral. 11/18/2017 Appointment: [facility] Carney [phone] [facility] New Patient 11/18/2017 Patient Education: Patient Medication Summary Completed 11/18/2017 Referral: Sudha Ruby Referral Initiated Referral: Cedric, [facility] WPtel: [phone] [facility] [address] [id number] [place] Referral Initiated Instructions Comment . Chronic [...] practice. 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 . [...] practice. 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 . [...] practice. 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 Trigger [...]
--- OUTSIDE RECORDS SUMMARY | 2019-01-14 10:47 | XMS REPORT | CCD ---
Author Author Shelly Carney Organization [facility] Address [address] [place] [address] Phone Care Team Providers Care Dorr Operator Name Role Phone PP Unavailable CCM Unavailable Summary Purpose Interface Exchange Insurance Providers Payer name Policy type / Coverage type Covered alliance party ID Effective Begin Date Effective End Date [facility] Medicaid [id number] Unknown Family history Father Diagnosis Age At Onset Diabetes mellitus Type 2 Unknown Hyperlipidemia Unknown Brother Diagnosis Age At Onset Diabetes mellitus Type 2 Unknown Social History Social History Element Codes Description Effective Dates Marital status Unknown Single 11/18/2017 Number of children Unknown 2 11/18/[address]: 21010734 Current every day smoker 11/18/2017 Number of years using tobacco Unknown 10 - 20 11/18/2017 Number of cigarettes/day Unknown 10 (Half a pack) 11/18/[address]: 442261 Currently drinks alcohol 11/18/2017 Frequency of drinks SNOMED CT: 318820385 1- 4 drinks per week 11/18/2017 Allergies, [...] Start Date Stop Date Status Fill Instructions cyclobenzaprine 5 mg tablet RxNorm: 876944 1 Tablet(s) PO TID 09/02/2018 10/01/2018 Active cyclobenzaprine 5 mg tablet RxNorm: 519314 1 Tablet(s) PO TID as needed muscle spasms 08/22/2018 09/01/2018 Inactive prednisone 20 mg tablet RxNorm: 041247 3 Tablet(s) PO daily 08/21/2018 08/23/2018 Inactive gabapentin 300 mg capsule RxNorm: 801237 1 Capsule(s) PO in morning and at noon and 2 pills at night 08/18/2018 12/15/2018 Active Lortab 5 mg-325 mg tablet RxNorm: 6911278 1 Tablet(s) PO Q6 as needed ok'd to fill 1 x 08/15/2018 10/13/2018 Active gabapentin 300 mg capsule RxNorm: 321827 1 Capsule(s) PO TID 08/04/2018 08/17/2018 Inactive baclofen 10 mg tablet RxNorm: 944921 1 Tablet(s) PO TID as needed muscle spasms 07/31/2018 08/09/2018 Inactive Lortab 5 mg-325 mg tablet RxNorm: 8582375 1 Tablet(s) PO Q6 as needed ok'd to fill 1 x 07/31/2018 08/14/2018 Inactive baclofen 10 mg tablet RxNorm: 144983 1 Tablet(s) PO TID as needed muscle spasms 07/25/2018 07/30/2018 Inactive baclofen 10 mg tablet RxNorm: 063461 1 Tablet(s) PO TID as needed muscle spasms 07/23/2018 07/24/2018 Inactive baclofen 10 mg tablet RxNorm: 916245 1 Tablet(s) PO TID as needed muscle spasms 07/18/2018 07/22/2018 Inactive ibuprofen 800 mg tablet RxNorm: 420663 1 Tablet(s) PO TID as needed 07/11/2018 11/07/2018 Active ibuprofen 800 mg tablet RxNorm: 388427 1 Tablet(s) PO TID as needed 07/11/2018 07/10/2018 Inactive ibuprofen 800 mg tablet RxNorm: 423305 1 Tablet(s) PO TID as needed 07/11/2018 07/10/2018 Inactive Duexis 800 mg-26.6 mg tablet RxNorm: 7467027 1 Tablet(s) PO TID as needed 07/08/2018 08/06/2018 Inactive prednisone 20 mg tablet RxNorm: 437655 1 Tablet(s) PO UD 07/08/2018 07/12/2018 Inactive 40,40,20,20,10,10, baclofen 10 mg tablet RxNorm: 836582 1 Tablet(s) PO TID as needed muscle spasms 07/08/2018 07/17/2018 Inactive prednisone 20 mg tablet RxNorm: 547510 2 Tablet(s) PO daily 07/03/2018 07/07/2018 Inactive baclofen 10 mg tablet RxNorm: 586007 1 Tablet(s) PO TID 07/03/2018 07/07/2018 Inactive Lortab 5 mg-325 mg tablet RxNorm: 6011705 1 Tablet(s) PO Q6 as needed ok'd to fill 1 x 06/20/2018 07/19/2018 Inactive Kenalog 40 mg/mL suspension for injection RxNorm: 7207816 1 Milliliter(s) Inj 06/05/2018 06/05/2018 Inactive cyclobenzaprine 5 mg tablet RxNorm: 186185 1 Tablet(s) PO TID as needed muscle spasms 06/03/2018 08/21/2018 Inactive Lortab 5 mg-325 mg tablet RxNorm: 3778118 1 Tablet(s) PO Q6 as needed ok'd to fill 1 x 05/08/2018 06/06/2018 Inactive cyclobenzaprine 5 mg tablet RxNorm: 566376 1 Tablet(s) PO TID as needed muscle spasms 05/02/2018 06/02/2018 Inactive Lortab 5 mg-325 mg tablet RxNorm: 4002852 1 Tablet(s) PO Q6 04/24/2018 05/07/2018 Inactive gabapentin 300 mg capsule RxNorm: 737466 1 Capsule(s) PO TID 04/18/2018 08/03/2018 Inactive gabapentin 300 mg capsule RxNorm: 207582 1 Capsule(s) PO TID 02/14/2018 04/17/2018 Inactive gabapentin 300 mg capsule RxNorm: 809247 1 Capsule(s) PO TID 01/14/2018 02/13/2018 Inactive gabapentin 300 mg capsule RxNorm: 473190 1 Capsule(s) PO TID 12/04/2017 01/02/2018 Inactive Zorvolex 35 mg capsule RxNorm: 1970304 1 Capsule(s) PO TID as needed for pain 11/25/2017 12/24/2017 Inactive Zorvolex 35 mg capsule RxNorm: 2010196 1 Capsule(s) PO TID as needed for pain 11/21/2017 11/24/2017 Inactive Zorvolex 35 mg capsule RxNorm: 4910709 1 Capsule(s) PO TID as needed for pain 11/21/2017 11/20/2017 Inactive cyclobenzaprine 5 mg tablet RxNorm: 004249 1 Tablet(s) PO TID as needed muscle spasms 11/18/2017 05/01/2018 Inactive gabapentin 300 mg capsule RxNorm: 401838 1 Capsule(s) PO BID No Start Date 12/03/2017 Inactive Medication Administered Medication Codes Instructions Start Date Status Kenalog 40 mg/mL suspension for injection RxNorm: 4303889 1Milliliter 06/05/2018 No longer Active Immunizations No [...] spine 08/18/2018 None Full Exam - General 1995 [...] Procedure Codes Date INJ TRIGGER POINT 12 MUSCL CPT-4: 08893 06/05/2018 TRIAMCINOLONE ACET INJ NOS CPT-4: J3301 06/05/2018 TRIAMCINOLONE ACET INJ NOS CPT-4: J3301 05/01/2018 INJ TRIGGER POINT 2 MUSCL CPT-4: 14159 05/01/2018 Vital Signs Date Vital 08/21/2018 Blood Pressure 1: 160/86 Code: 8480-6 Heart Rate 1: 95 bpm Height: 5'7" SpO2: 98% 08/18/2018 Blood Pressure 1: 152/96 Code: 8480-6 Heart Rate 1: 118 bpm Height: 5'7" SpO2: 97% 07/03/2018 Blood Pressure 1: 130/82 Code: 8480-6 BMI: 28.5 Code: 34782-5 Heart Rate 1: 92 bpm Height: 5'7" SpO2: 98% Weight: 182 lbs 06/05/2018 Blood Pressure 1: 140/68 Code: 8480-6 BMI: 28.5 Code: 94393-3 Heart Rate 1: 97 bpm Height: 5'7" SpO2: 98% Weight: 182 lbs 05/01/2018 Blood Pressure 1: 124/72 Code: 8480-6 BMI: 27.1 Code: 63509-6 Heart Rate 1: 86 bpm Height: 5'7" SpO2: 97% Weight: 173 lbs 03/24/2018 Blood Pressure 1: 136/62 Code: 8480-6 BMI: 27.4 Code: 50626-9 Heart Rate 1: 96 bpm Height: 5'7" SpO2: 98% Weight: 175 lbs 11/18/2017 Blood Pressure 1: 152/80 Code: 8480-6 BMI: 27.6 Code: 54552-1 Heart Rate 1: 92 bpm Height: 5'7" [...] in thoracic spine[ICD10: M54.6] Shelly Galvez MD, [facility] CPT- 4: 14734 08/21/2018 65420 EST. PATIENT, LEVEL III Diagnosis: Low back pain[ICD10: M54.5] Diagnosis: Pain in thoracic spine[ICD10: M54.6] Diagnosis: Muscle spasm of back[ICD10: M62.830] Diagnosis: Cervicalgia[ICD10: M54.2] Diagnosis: Carpal tunnel syndrome, left upper limb[ICD10: G56.02] Diagnosis: Carpal tunnel syndrome, right upper limb[ICD10: G56.01] Shelly Galvez MD, [facility] CPT-4: 72104 08/18/2018 25568 EST. PATIENT, LEVEL III Diagnosis: Low back pain[ICD10: M54.5] Diagnosis: Pain in thoracic spine[ICD10: M54.6] Diagnosis: Muscle spasm of back[ICD10: M62.830] Diagnosis: Cervicalgia[ICD10: M54.2] [facility] CPT-4: 45183 07/03/2018 10342 EST. PATIENT, LEVEL III Diagnosis: Low back pain[ICD10: M54.5] Diagnosis: Pain in thoracic spine[ICD10: M54.6] Diagnosis: Muscle spasm of back[ICD10: M62.830] Shelly Galvez MD, [facility] CPT- 4: 98497 06/05/2018 83861 EST. PATIENT, LEVEL IV Diagnosis: Low back pain[ICD10: M54.5] Diagnosis: Pain in thoracic spine[ICD10: M54.6] Diagnosis: Muscle spasm of back[ICD10: M62.830] Shelly Galvez MD, [facility] CPT- 4: 05096 05/01/2018 97984 EST. PATIENT, LEVEL IV Diagnosis: Low back pain[ICD10: M54.5] Diagnosis: Pain in thoracic spine[ICD10: M54.6] Diagnosis: Muscle spasm of back[ICD10: M62.830] Shelly Galvez MD, [facility] CPT- 4: 91623 03/24/2018 OFFICE VISIT, NEW - LEVEL 4 Diagnosis: Low back pain[ICD10: M54.5] Diagnosis: Pain in thoracic spine[ICD10: M54.6] Diagnosis: Abnormal findings on diagnostic imaging of other specified body structures[ICD10: R93.8] Diagnosis: Muscle spasm of back[ICD10: M62.830] Shelly Galvez MD, [facility] CPT- 4: 46652 11/18/2017 Plan of Care Planned Activity Notes [...] of over-medication. 08/21/2018 Appointment: Shelly Carney WPtel: [address] [place], [place] [phone] (15 min) Moderate 08/21/2018 Patient Education: Patient [...] the current treatment plan. 08/18/2018 Appointment: Shelly Carnye WPtel: [facility] [place] (15 min) Moderate 08/18/2018 Patient [...] practice. 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 07/03/2018 Appointment: Shelly Carney WPtel: [facility] [place] (15 min) Moderate 07/03/2018 Patient Education: Patient Medication Summary Completed 07/03/2018 Patient Education: Back Pain Completed 07/03/2018 Patient Education: .Cervicalgia Neck Pain Completed 07/03/2018 Appointment: Shelly Carney WPtel: [phone] [facility] [place] (15 min) Moderate 06/30/2018 Care Plan: Referral Order SNOMED-CT : 617654966 Pending 06/09/2018 Visit Plan: Chronic Back pain [...] disease process. 06/05/2018 Appointment: [facility] [phone] [facility] [place] (15 min) Moderate 06/05/2018 [...] practice. 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 Trigger Points - Injected trigger points today, pt given post-injection instructions, signs and symptoms for which to call the office. Pt to use heat to the muscles today, and take an anti-inflammatory today unless otherwise contraindicated by renal function or other disease process. 05/01/2018 Appointment: [facility] Carney [facility]el[facility] [phone] [facility] [place] (15 min) Moderate 05/01/2018 Patient Education: [...] practice. 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 03/24/2018 Appointment: Shelly Carney WPtel: [facility] (30 min) Complex 03/24/2018 Patient Education: Patient Medication Summary Completed 03/24/2018 Referral: [facility] W[facility]el: [phone] [facility] [address] [id number] Referral Initiated 12/02/2017 Care Plan: Referral Order SNOMED-CT : 902734333 Pending 11/28/2017 Visit Plan: back pain- the [...] a referral. 11/18/2017 Appointment: Shelly Carney WPtel: [facility] New Patient 11/18/2017 Patient Education: Patient Medication Summary Completed 11/18/2017 Referral: Sudha Ruby Referral Initiated Referral: [facility] W[facility]el: [address] [facility] 1 [id number] Referral Initiated Instructions Comment . Chronic Back [...] practice. 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 . [...] practice. 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 . [...] practice. 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 Trigger [...]
--- OUTSIDE RECORDS SUMMARY | 2019-01-14 10:47 | XMS REPORT | CCD ---
Author Author Shelly Carney Organization [facility] Address [address] [place] [address] Phone Care Team Providers Care Auditing Control Clerk Name Role Phone PP Unavailable CCM Unavailable Summary Purpose Interface Exchange Insurance Providers Payer name Policy type / Coverage type Covered libertarian ID Effective Begin Date Effective End Date [facility] Medicaid [id number] Unknown Family history Father Diagnosis Age At Onset Diabetes mellitus Type 2 Unknown Hyperlipidemia Unknown Brother Diagnosis Age At Onset Diabetes mellitus Type 2 Unknown Social History Social History Element Codes Description Effective Dates Marital status Unknown Single 11/18/2017 Number of children Unknown 2 11/18/[address]: 93249461 Current every day smoker 11/18/2017 Number of years using tobacco Unknown 10 - 20 11/18/2017 Number of cigarettes/day Unknown 10 (Half a pack) 11/18/[address]: 788287 Currently drinks alcohol 11/18/2017 Frequency of drinks SNOMED CT: 309983446 1- 4 drinks per week 11/18/2017 Allergies, [...] Fill Instructions cyclobenzaprine 5 mg tablet RxNorm: 128861 1 Tablet(s) PO TID as needed muscle spasms 08/22/2018 No Stop Date Active prednisone 20 mg tablet RxNorm: 417142 3 Tablet(s) PO daily 08/21/2018 08/23/2018 Inactive gabapentin 300 mg capsule RxNorm: 586479 1 Capsule(s) PO in morning and at noon and 2 pills at night 08/18/2018 12/15/2018 Active Lortab 5 mg-325 mg tablet RxNorm: 8583520 1 Tablet(s) PO Q6 as needed ok'd to fill 1 x 08/15/2018 10/13/2018 Active gabapentin 300 mg capsule RxNorm: 445670 1 Capsule(s) PO TID 08/04/2018 08/17/2018 Inactive baclofen 10 mg tablet RxNorm: 618582 1 Tablet(s) PO TID as needed muscle spasms 07/31/2018 08/09/2018 Inactive Lortab 5 mg-325 mg tablet RxNorm: 6534618 1 Tablet(s) PO Q6 as needed ok'd to fill 1 x 07/31/2018 08/14/2018 Inactive baclofen 10 mg tablet RxNorm: 016985 1 Tablet(s) PO TID as needed muscle spasms 07/25/2018 07/30/2018 Inactive baclofen 10 mg tablet RxNorm: 890393 1 Tablet(s) PO TID as needed muscle spasms 07/23/2018 07/24/2018 Inactive baclofen 10 mg tablet RxNorm: 797726 1 Tablet(s) PO TID as needed muscle spasms 07/18/2018 07/22/2018 Inactive ibuprofen 800 mg tablet RxNorm: 012181 1 Tablet(s) PO TID as needed 07/11/2018 11/07/2018 Active ibuprofen 800 mg tablet RxNorm: 079001 1 Tablet(s) PO TID as needed 07/11/2018 07/10/2018 Inactive ibuprofen 800 mg tablet RxNorm: 200083 1 Tablet(s) PO TID as needed 07/11/2018 07/10/2018 Inactive Duexis 800 mg-26.6 mg tablet RxNorm: 7905446 1 Tablet(s) PO TID as needed 07/08/2018 08/06/2018 Inactive prednisone 20 mg tablet RxNorm: 601096 1 Tablet(s) PO UD 07/08/2018 07/12/2018 Inactive 40,40,20,20,10,10, baclofen 10 mg tablet RxNorm: 240574 1 Tablet(s) PO TID as needed muscle spasms 07/08/2018 07/17/2018 Inactive prednisone 20 mg tablet RxNorm: 648049 2 Tablet(s) PO daily 07/03/2018 07/07/2018 Inactive baclofen 10 mg tablet RxNorm: 282998 1 Tablet(s) PO TID 07/03/2018 07/07/2018 Inactive Lortab 5 mg-325 mg tablet RxNorm: 8805865 1 Tablet(s) PO Q6 as needed ok'd to fill 1 x 06/20/2018 07/19/2018 Inactive Kenalog 40 mg/mL suspension for injection RxNorm: 9187010 1 Milliliter(s) Inj 06/05/2018 06/05/2018 Inactive cyclobenzaprine 5 mg tablet RxNorm: 080286 1 Tablet(s) PO TID as needed muscle spasms 06/03/2018 08/21/2018 Inactive Lortab 5 mg-325 mg tablet RxNorm: 5849288 1 Tablet(s) PO Q6 as needed ok'd to fill 1 x 05/08/2018 06/06/2018 Inactive cyclobenzaprine 5 mg tablet RxNorm: 803578 1 Tablet(s) PO TID as needed muscle spasms 05/02/2018 06/02/2018 Inactive Lortab 5 mg-325 mg tablet RxNorm: 2067062 1 Tablet(s) PO Q6 04/24/2018 05/07/2018 Inactive gabapentin 300 mg capsule RxNorm: 326315 1 Capsule(s) PO TID 04/18/2018 08/03/2018 Inactive gabapentin 300 mg capsule RxNorm: 070828 1 Capsule(s) PO TID 02/14/2018 04/17/2018 Inactive gabapentin 300 mg capsule RxNorm: 308123 1 Capsule(s) PO TID 01/14/2018 02/13/2018 Inactive gabapentin 300 mg capsule RxNorm: 480993 1 Capsule(s) PO TID 12/04/2017 01/02/2018 Inactive Zorvolex 35 mg capsule RxNorm: 7856406 1 Capsule(s) PO TID as needed for pain 11/25/2017 12/24/2017 Inactive Zorvolex 35 mg capsule RxNorm: 7221460 1 Capsule(s) PO TID as needed for pain 11/21/2017 11/24/2017 Inactive Zorvolex 35 mg capsule RxNorm: 1316504 1 Capsule(s) PO TID as needed for pain 11/21/2017 11/20/2017 Inactive cyclobenzaprine 5 mg tablet RxNorm: 967028 1 Tablet(s) PO TID as needed muscle spasms 11/18/2017 05/01/2018 Inactive gabapentin 300 mg capsule RxNorm: 970207 1 Capsule(s) PO BID No Start Date 12/03/2017 Inactive Medication Administered Medication Codes Instructions Start Date Status Kenalog 40 mg/mL suspension for injection RxNorm: 3201854 1Milliliter 06/05/2018 No longer Active Immunizations No [...] nourished 08/18/2018 None Full Exam - General 1995 Eyes conjunctiva/eyelids Overall: conjunctiva clear 08/18/2018 None Full Exam - General 1995 Eyes conjunctiva/eyelids Overall: cornea clear 08/18/2018 None [...] Procedures Procedure Codes Date INJ TRIGGER POINT 08/06 MUSCL CPT-4: 15843 06/05/2018 TRIAMCINOLONE ACET INJ NOS CPT-4: J3301 06/05/2018 TRIAMCINOLONE ACET INJ NOS CPT-4: J3301 05/01/2018 INJ TRIGGER POINT 08/06 MUSCL CPT-4: 13270 05/01/2018 Vital Signs Date Vital 08/21/2018 Blood Pressure 1: 160/86 Code: 8480-6 Heart Rate 1: 95 bpm Height: 5'7" SpO2: 98% 08/18/2018 Blood Pressure 1: 152/96 Code: 8480-6 Heart Rate 1: 118 bpm Height: 5'7" SpO2: 97% 07/03/2018 Blood Pressure 1: 130/82 Code: 8480-6 BMI: 28.5 Code: 05453-1 Heart Rate 1: 92 bpm Height: 5'7" SpO2: 98% Weight: 182 lbs 06/05/2018 Blood Pressure 1: 140/68 Code: 8480-6 BMI: 28.5 Code: 62748-4 Heart Rate 1: 97 bpm Height: 5'7" SpO2: 98% Weight: 182 lbs 05/01/2018 Blood Pressure 1: 124/72 Code: 8480-6 BMI: 27.1 Code: 31634-2 Heart Rate 1: 86 bpm Height: 5'7" SpO2: 97% Weight: 173 lbs 03/24/2018 Blood Pressure 1: 136/62 Code: 8480-6 BMI: 27.4 Code: 96829-2 Heart Rate 1: 96 bpm Height: 5'7" SpO2: 98% Weight: 175 lbs 11/18/2017 Blood Pressure 1: 152/80 Code: 8480-6 BMI: 27.6 Code: 54396-1 Heart Rate 1: 92 bpm Height: 5'7" [...] in thoracic spine[ICD10: M54.6] Shelly Galvez MD, [facility] CPT- 4: 42612 08/21/2018 99068 EST. PATIENT, LEVEL III Diagnosis: Low back pain[ICD10: M54.5] Diagnosis: Pain in thoracic spine[ICD10: M54.6] Diagnosis: Muscle spasm of back[ICD10: M62.830] Diagnosis: Cervicalgia[ICD10: M54.2] Diagnosis: Carpal tunnel syndrome, left upper limb[ICD10: G56.02] Diagnosis: Carpal tunnel syndrome, right upper limb[ICD10: G56.01] Shelly Galvez MD, [facility] CPT-4: 19536 08/18/2018 58281 EST. PATIENT, LEVEL III Diagnosis: Low back pain[ICD10: M54.5] Diagnosis: Pain in thoracic spine[ICD10: M54.6] Diagnosis: Muscle spasm of back[ICD10: M62.830] Diagnosis: Cervicalgia[ICD10: M54.2] Shelly Galvez MD, [facility] CPT-4: 68400 07/03/2018 22908 EST. PATIENT, LEVEL III Diagnosis: Low back pain[ICD10: M54.5] Diagnosis: Pain in thoracic spine[ICD10: M54.6] Diagnosis: Muscle spasm of back[ICD10: M62.830] Shelly Galvez MD, [facility] CPT- 4: 46441 06/05/2018 43312 EST. PATIENT, LEVEL IV Diagnosis: Low back pain[ICD10: M54.5] Diagnosis: Pain in thoracic spine[ICD10: M54.6] Diagnosis: Muscle spasm of back[ICD10: M62.830] Shelly Galvez MD, [facility] CPT- 4: 65647 05/01/2018 76960 EST. PATIENT, LEVEL IV Diagnosis: Low back pain[ICD10: M54.5] Diagnosis: Pain in thoracic spine[ICD10: M54.6] Diagnosis: Muscle spasm of back[ICD10: M62.830] Shelly Galvez MD, [facility] CPT- 4: 19604 03/24/2018 OFFICE VISIT, NEW - LEVEL 4 Diagnosis: Low back pain[ICD10: M54.5] Diagnosis: Pain in thoracic spine[ICD10: M54.6] Diagnosis: Abnormal findings on diagnostic imaging of other specified body structures[ICD10: R93.8] Diagnosis: Muscle spasm of back[ICD10: M62.830] Shelly Galvez MD, [facility] CPT- 4: 45557 11/18/2017 Plan of Care Planned Activity Notes [...] of over-medication. 08/21/2018 Appointment: Shelly Carney WPtel: [address] [place], [place] [phone] (15 min) Moderate 08/21/2018 Patient Education: Patient [...] plan. 08/18/2018 Appointment: Shelly Carney WPtel: [phone] [facility] [place] (15 min) Moderate 08/18/2018 [...] practice. 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 07/03/2018 Appointment: Shelly Carney WPtel: [phone] [facility] [place] (15 min) Moderate 07/03/2018 Patient Education: Patient Medication Summary Completed 07/03/2018 Patient Education: Back Pain Completed 07/03/2018 Patient Education: .Cervicalgia Neck Pain Completed 07/03/2018 Appointment: Shelly Carney WPtel: [phone] [facility] [place] (15 min) Moderate 06/30/2018 Care Plan: Referral Order SNOMED-CT : 040902530 Pending 06/09/2018 Visit Plan: Chronic Back pain [...] process. 06/05/2018 App[facility]ment: [phone] [facility] [place] (15 min) Moderate 06/05/2018 Patient Education: [...] practice. 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 Trigger Points - Injected trigger points today, pt given post-injection instructions, signs and symptoms for which to call the office. Pt to use heat to the muscles today, and take an anti-inflammatory today unless otherwise contraindicated by renal function or other disease process. 05/01/2018 Appointment: Shelly Carney WPtel: [phone] [facility] [place] (15 min) Moderate 05/01/2018 Patient Education: [...] practice. 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 03/24/2018 Appointment: Shel[facility] Carney [facility]Ptel[facility] [phone] [facility] (30 min) Complex 03/24/2018 Patient Education: Patient Medication Summary Completed 03/24/2018 Referral: [facility]el: [phone] Referral Initiated 12/02/2017 Care Plan: Referral Order SNOMED-CT : [id number] Pending 11/28/2017 Visit Plan: back pain- the [...] a referral. 11/18/2017 Appointment: Shelly Carney WPtel: [facility] [place] New Patient 11/18/2017 Patient Education: Patient Medication Summary Completed 11/18/2017 Referral: Sudha Ruby Referral Initiated Referral: [facility] W[facility]el: [phone] Referral Initiated Instructions Comment . Chronic Back [...] practice. 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 . [...] practice. 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 . [...] practice. 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 Trigger [...]
--- OUTSIDE RECORDS SUMMARY | 2019-01-14 10:48 | XMS REPORT | CCD ---
Author Author Shelly Carney Organization [facility] Address [address] [place] [address] Phone Care Team Providers Care Saw Maker Name Role Phone PP Unavailable CCM Unavailable Summary Purpose Interface Exchange Insurance Providers Payer name Policy type / Coverage type Covered alliance party ID Effective Begin Date Effective End Date [facility] [id number] Unknown Family history Father Diagnosis Age At Onset Diabetes mellitus Type 2 Unknown Hyperlipidemia Unknown Brother Diagnosis Age At Onset Diabetes mellitus Type 2 Unknown Social History Social History Element Codes Description Effective Dates Marital status Unknown Single 11/18/2017 Number of children Unknown 2 11/18/[address]: 75927703 Current every day smoker 11/18/2017 Number of years using tobacco Unknown 10 - 20 11/18/2017 Number of cigarettes/day Unknown 10 (Half a pack) 11/18/[address]: 161728 Currently drinks alcohol 11/18/2017 Frequency of drinks SNOMED CT: 966501733 1- 4 drinks per week 11/18/2017 Allergies, [...] Fill Instructions cyclobenzaprine 5 mg tablet RxNorm: 742911 1 Tablet(s) PO TID as needed muscle spasms 08/22/2018 No Stop Date Active prednisone 20 mg tablet RxNorm: 424235 3 Tablet(s) PO daily 08/21/2018 08/23/2018 Active gabapentin 300 mg capsule RxNorm: 035335 1 Capsule(s) PO in morning and at noon and 2 pills at night 08/18/2018 12/15/2018 Active Lortab 5 mg-325 mg tablet RxNorm: 0983472 1 Tablet(s) PO Q6 as needed ok'd to fill 1 x 08/15/2018 10/13/2018 Active gabapentin 300 mg capsule RxNorm: 522123 1 Capsule(s) PO TID 08/04/2018 08/17/2018 Inactive baclofen 10 mg tablet RxNorm: 770034 1 Tablet(s) PO TID as needed muscle spasms 07/31/2018 08/09/2018 Inactive Lortab 5 mg-325 mg tablet RxNorm: 0151535 1 Tablet(s) PO Q6 as needed ok'd to fill 1 x 07/31/2018 08/14/2018 Inactive baclofen 10 mg tablet RxNorm: 228463 1 Tablet(s) PO TID as needed muscle spasms 07/25/2018 07/30/2018 Inactive baclofen 10 mg tablet RxNorm: 160330 1 Tablet(s) PO TID as needed muscle spasms 07/23/2018 07/24/2018 Inactive baclofen 10 mg tablet RxNorm: 457623 1 Tablet(s) PO TID as needed muscle spasms 07/18/2018 07/22/2018 Inactive ibuprofen 800 mg tablet RxNorm: 296422 1 Tablet(s) PO TID as needed 07/11/2018 11/07/2018 Active ibuprofen 800 mg tablet RxNorm: 391678 1 Tablet(s) PO TID as needed 07/11/2018 07/10/2018 Inactive ibuprofen 800 mg tablet RxNorm: 214653 1 Tablet(s) PO TID as needed 07/11/2018 07/10/2018 Inactive Duexis 800 mg-26.6 mg tablet RxNorm: 4426117 1 Tablet(s) PO TID as needed 07/08/2018 08/06/2018 Inactive prednisone 20 mg tablet RxNorm: 598511 1 Tablet(s) PO UD 07/08/2018 07/12/2018 Inactive 40,40,20,20,10,10, baclofen 10 mg tablet RxNorm: 904141 1 Tablet(s) PO TID as needed muscle spasms 07/08/2018 07/17/2018 Inactive prednisone 20 mg tablet RxNorm: 918869 2 Tablet(s) PO daily 07/03/2018 07/07/2018 Inactive baclofen 10 mg tablet RxNorm: 809697 1 Tablet(s) PO TID 07/03/2018 07/07/2018 Inactive Lortab 5 mg-325 mg tablet RxNorm: 6900446 1 Tablet(s) PO Q6 as needed ok'd to fill 1 x 06/20/2018 07/19/2018 Inactive Kenalog 40 mg/mL suspension for injection RxNorm: 2544282 1 Milliliter(s) Inj 06/05/2018 06/05/2018 Inactive cyclobenzaprine 5 mg tablet RxNorm: 501089 1 Tablet(s) PO TID as needed muscle spasms 06/03/2018 08/21/2018 Inactive Lortab 5 mg-325 mg tablet RxNorm: 7857351 1 Tablet(s) PO Q6 as needed ok'd to fill 1 x 05/08/2018 06/06/2018 Inactive cyclobenzaprine 5 mg tablet RxNorm: 446213 1 Tablet(s) PO TID as needed muscle spasms 05/02/2018 06/02/2018 Inactive Lortab 5 mg-325 mg tablet RxNorm: 1087184 1 Tablet(s) PO Q6 04/24/2018 05/07/2018 Inactive gabapentin 300 mg capsule RxNorm: 603660 1 Capsule(s) PO TID 04/18/2018 08/03/2018 Inactive gabapentin 300 mg capsule RxNorm: 836702 1 Capsule(s) PO TID 02/14/2018 04/17/2018 Inactive gabapentin 300 mg capsule RxNorm: 652232 1 Capsule(s) PO TID 01/14/2018 02/13/2018 Inactive gabapentin 300 mg capsule RxNorm: 771461 1 Capsule(s) PO TID 12/04/2017 01/02/2018 Inactive Zorvolex 35 mg capsule RxNorm: 0415875 1 Capsule(s) PO TID as needed for pain 11/25/2017 12/24/2017 Inactive Zorvolex 35 mg capsule RxNorm: 2303461 1 Capsule(s) PO TID as needed for pain 11/21/2017 11/24/2017 Inactive Zorvolex 35 mg capsule RxNorm: 7552902 1 Capsule(s) PO TID as needed for pain 11/21/2017 11/20/2017 Inactive cyclobenzaprine 5 mg tablet RxNorm: 308802 1 Tablet(s) PO TID as needed muscle spasms 11/18/2017 05/01/2018 Inactive gabapentin 300 mg capsule RxNorm: 952456 1 Capsule(s) PO BID No Start Date 12/03/2017 Inactive Medication Administered Medication Codes Instructions Start Date Status Kenalog 40 mg/mL suspension for injection RxNorm: 9841360 1Milliliter 06/05/2018 No longer Active Immunizations No [...] Date INJ TRIGGER POINT 08/06 MUSCL CPT-4: 73904 06/05/2018 TRIAMCINOLONE ACET INJ NOS CPT-4: J3301 06/05/2018 TRIAMCINOLONE ACET INJ NOS CPT-4: J3301 05/01/2018 INJ TRIGGER POINT 08/06 MUSCL CPT-4: 63237 05/01/2018 Vital Signs Date Vital 08/21/2018 Blood Pressure 1: 160/86 Code: 8480-6 Heart Rate 1: 95 bpm Height: 5'7" SpO2: 98% 08/18/2018 Blood Pressure 1: 152/96 Code: 8480-6 Heart Rate 1: 118 bpm Height: 5'7" SpO2: 97% 07/03/2018 Blood Pressure 1: 130/82 Code: 8480-6 BMI: 28.5 Code: 81513-4 Heart Rate 1: 92 bpm Height: 5'7" SpO2: 98% Weight: 182 lbs 06/05/2018 Blood Pressure 1: 140/68 Code: 8480-6 BMI: 28.5 Code: 92597-3 Heart Rate 1: 97 bpm Height: 5'7" SpO2: 98% Weight: 182 lbs 05/01/2018 Blood Pressure 1: 124/72 Code: 8480-6 BMI: 27.1 Code: 02795-4 Heart Rate 1: 86 bpm Height: 5'7" SpO2: 97% Weight: 173 lbs 03/24/2018 Blood Pressure 1: 136/62 Code: 8480-6 BMI: 27.4 Code: 82639-8 Heart Rate 1: 96 bpm Height: 5'7" SpO2: 98% Weight: 175 lbs 11/18/2017 Blood Pressure 1: 152/80 Code: 8480-6 BMI: 27.6 Code: 79181-3 Heart Rate 1: 92 bpm Height: 5'7" [...] in thoracic spine[ICD10: M54.6] Shelly Galvez MD, [facility] CPT- 4: 28045 08/21/2018 06922 EST. PATIENT, LEVEL III Diagnosis: Low back pain[ICD10: M54.5] Diagnosis: Pain in thoracic spine[ICD10: M54.6] Diagnosis: Muscle spasm of back[ICD10: M62.830] Diagnosis: Cervicalgia[ICD10: M54.2] Diagnosis: Carpal tunnel syndrome, left upper limb[ICD10: G56.02] Diagnosis: Carpal tunnel syndrome, right upper limb[ICD10: G56.01] Shelly Galvez MD, [facility] CPT-4: 28925 08/18/2018 82815 EST. PATIENT, LEVEL III Diagnosis: Low back pain[ICD10: M54.5] Diagnosis: Pain in thoracic spine[ICD10: M54.6] Diagnosis: Muscle spasm of back[ICD10: M62.830] Diagnosis: Cervicalgia[ICD10: M54.2] Shelly Galvez MD, [facility] CPT-4: 22343 07/03/2018 73990 EST. PATIENT, LEVEL III Diagnosis: Low back pain[ICD10: M54.5] Diagnosis: Pain in thoracic spine[ICD10: M54.6] Diagnosis: Muscle spasm of back[ICD10: M62.830] Shelly Galvez MD, [facility] CPT- 4: 38772 06/05/2018 14412 EST. PATIENT, LEVEL IV Diagnosis: Low back pain[ICD10: M54.5] Diagnosis: Pain in thoracic spine[ICD10: M54.6] Diagnosis: Muscle spasm of back[ICD10: M62.830] Shelly Galvez MD, [facility] CPT- 4: 77691 05/01/2018 61131 EST. PATIENT, LEVEL IV Diagnosis: Low back pain[ICD10: M54.5] Diagnosis: Pain in thoracic spine[ICD10: M54.6] Diagnosis: Muscle spasm of back[ICD10: M62.830] Shelly Galvez MD, [facility] CPT- 4: 33675 03/24/2018 OFFICE VISIT, NEW - LEVEL 4 Diagnosis: Low back pain[ICD10: M54.5] Diagnosis: Pain in thoracic spine[ICD10: M54.6] Diagnosis: Abnormal findings on diagnostic imaging of other specified body structures[ICD10: R93.8] Diagnosis: Muscle spasm of back[ICD10: M62.830] Shelly Galvez MD, [facility] CPT- 4: 52893 11/18/2017 Plan of Care Planned Activity Notes [...] of over-medication. 08/21/2018 Appointment: Shelly Carney WPtel: [address] [place], [place] [phone] (15 min) Moderate 08/21/2018 Patient Education: Patient [...] plan. 08/18/2018 Appointment: Shelly Carney WPtel: [phone] [facility] [place] (15 min) Moderate 08/18/2018 Patient [...] practice. Pt is to continue with his personal loan specialist for his ongoing back pain. 07/03/2018 Appointment: Shelly Carney WPtel: [phone] [facility] [place] (15 min) Moderate 07/03/2018 Patient Education: Patient Medication Summary Completed 07/03/2018 Patient Education: Back Pain Completed 07/03/2018 Patient Education: .Cervicalgia Neck Pain Completed 07/03/2018 Appointment: Shelly Carney WPtel: [phone] [facility] [place] (15 min) Moderate 06/30/2018 Care Plan: Referral Order SNOMED-CT : 166281168 Pending 06/09/2018 Visit Plan: Chronic Back pain [...] process. 06/05/2018 App[facility]ment: [facility] [phone] [facility] [place] (15 min) Moderate 06/05/2018 Patient [...] practice. Pt is to continue with his personal loan specialist for his ongoing back pain. Trigger Points - Injected trigger points today, pt given post-injection instructions, signs and symptoms for which to call the office. Pt to use heat to the muscles today, and take an anti-inflammatory today unless otherwise contraindicated by renal function or other disease process. 05/01/2018 Appointment: [facility] Carney [facility] [phone] [facility] [place] (15 min) Moderate 05/01/2018 Patient [...] practice. Pt is to continue with his personal loan specialist for his ongoing back pain. 03/24/2018 Appointment: Shel[facility] Carney [facility]el[facility] [phone] [facility] (30 min) Complex 03/24/2018 Patient Education: Patient Medication Summary Completed 03/24/2018 Referral: [facility] [place]: [phone] Referral Initiated 12/02/2017 Care Plan: Referral Order SNOMED-CT : 337591067 Pending 11/28/2017 Visit Plan: back pain- the [...] 11/18/2017 Appointment: Shelly Carney WPtel: [facility] [place] New Patient 11/18/2017 Patient Education: Patient Medication Summary Completed 11/18/2017 Referral: Sudha Ruby Referral Initiated Referral: [facility] WPtel: [phone] Referral Initiated Instructions Comment . Chronic [...] practice. Pt is to continue with his personal loan specialist for his ongoing back pain. . [...] practice. Pt is to continue with his personal loan specialist for his ongoing back pain. . [...] practice. Pt is to continue with his personal loan specialist for his ongoing back pain. Trigger [...]
--- OUTSIDE RECORDS SUMMARY | 2019-01-14 10:49 | XMS REPORT | CCD ---
Author Author Shelly Carney Organization [facility] Address [address] [place] [address] Phone Care Team Providers Care Analysis Consultant Name Role Phone PP Unavailable CCM Unavailable Summary Purpose Interface Exchange Insurance Providers Payer name Policy type / Coverage type Covered constitution party ID Effective Begin Date Effective End Date [facility] Medicaid [id number] Unknown Family history Father Diagnosis Age At Onset Diabetes mellitus Type 2 Unknown Hyperlipidemia Unknown Brother Diagnosis Age At Onset Diabetes mellitus Type 2 Unknown Social History Social History Element Codes Description Effective Dates Marital status Unknown Single 11/18/2017 Number of children Unknown 2 11/18/[address]: 64079828 Current every day smoker 11/18/2017 Number of years using tobacco Unknown 10 - 20 11/18/2017 Number of cigarettes/day Unknown 10 (Half a pack) 11/18/[address]: 258975 Currently drinks alcohol 11/18/2017 Frequency of drinks SNOMED CT: 036666489 1- 4 drinks per week 11/18/2017 Allergies, [...] Start Date Stop Date Status Fill Instructions prednisone 20 mg tablet RxNorm: 112682 3 Tablet(s) PO daily 08/21/2018 08/23/2018 Active gabapentin 300 mg capsule RxNorm: 597404 1 Capsule(s) PO in morning and at noon and 2 pills at night 08/18/2018 12/15/2018 Active Lortab 5 mg-325 mg tablet RxNorm: 4544478 1 Tablet(s) PO Q6 as needed ok'd to fill 1 x 08/15/2018 10/13/2018 Active gabapentin 300 mg capsule RxNorm: 187475 1 Capsule(s) PO TID 08/04/2018 08/17/2018 Inactive baclofen 10 mg tablet RxNorm: 769137 1 Tablet(s) PO TID as needed muscle spasms 07/31/2018 08/09/2018 Inactive Lortab 5 mg-325 mg tablet RxNorm: 4173823 1 Tablet(s) PO Q6 as needed ok'd to fill 1 x 07/31/2018 08/14/2018 Inactive baclofen 10 mg tablet RxNorm: 930291 1 Tablet(s) PO TID as needed muscle spasms 07/25/2018 07/30/2018 Inactive baclofen 10 mg tablet RxNorm: 249812 1 Tablet(s) PO TID as needed muscle spasms 07/23/2018 07/24/2018 Inactive baclofen 10 mg tablet RxNorm: 474058 1 Tablet(s) PO TID as needed muscle spasms 07/18/2018 07/22/2018 Inactive ibuprofen 800 mg tablet RxNorm: 463510 1 Tablet(s) PO TID as needed 07/11/2018 11/07/2018 Active ibuprofen 800 mg tablet RxNorm: 846262 1 Tablet(s) PO TID as needed 07/11/2018 07/10/2018 Inactive ibuprofen 800 mg tablet RxNorm: 863031 1 Tablet(s) PO TID as needed 07/11/2018 07/10/2018 Inactive Duexis 800 mg-26.6 mg tablet RxNorm: 8413743 1 Tablet(s) PO TID as needed 07/08/2018 08/06/2018 Inactive prednisone 20 mg tablet RxNorm: 669855 1 Tablet(s) PO UD 07/08/2018 07/12/2018 Inactive 40,40,20,20,10,10, baclofen 10 mg tablet RxNorm: 251414 1 Tablet(s) PO TID as needed muscle spasms 07/08/2018 07/17/2018 Inactive prednisone 20 mg tablet RxNorm: 724593 2 Tablet(s) PO daily 07/03/2018 07/07/2018 Inactive baclofen 10 mg tablet RxNorm: 225024 1 Tablet(s) PO TID 07/03/2018 07/07/2018 Inactive Lortab 5 mg-325 mg tablet RxNorm: 0517444 1 Tablet(s) PO Q6 as needed ok'd to fill 1 x 06/20/2018 07/19/2018 Inactive Kenalog 40 mg/mL suspension for injection RxNorm: 4023750 1 Milliliter(s) Inj 06/05/2018 06/05/2018 Inactive cyclobenzaprine 5 mg tablet RxNorm: 056119 1 Tablet(s) PO TID as needed muscle spasms 06/03/2018 No Stop Date Active Lortab 5 mg-325 mg tablet RxNorm: 8640361 1 Tablet(s) PO Q6 as needed ok'd to fill 1 x 05/08/2018 06/06/2018 Inactive cyclobenzaprine 5 mg tablet RxNorm: 615523 1 Tablet(s) PO TID as needed muscle spasms 05/02/2018 06/02/2018 Inactive Lortab 5 mg-325 mg tablet RxNorm: 0679378 1 Tablet(s) PO Q6 04/24/2018 05/07/2018 Inactive gabapentin 300 mg capsule RxNorm: 824265 1 Capsule(s) PO TID 04/18/2018 08/03/2018 Inactive gabapentin 300 mg capsule RxNorm: 855723 1 Capsule(s) PO TID 02/14/2018 04/17/2018 Inactive gabapentin 300 mg capsule RxNorm: 699746 1 Capsule(s) PO TID 01/14/2018 02/13/2018 Inactive gabapentin 300 mg capsule RxNorm: 487090 1 Capsule(s) PO TID 12/04/2017 01/02/2018 Inactive Zorvolex 35 mg capsule RxNorm: 6941751 1 Capsule(s) PO TID as needed for pain 11/25/2017 12/24/2017 Inactive Zorvolex 35 mg capsule RxNorm: 0706259 1 Capsule(s) PO TID as needed for pain 11/21/2017 11/24/2017 Inactive Zorvolex 35 mg capsule RxNorm: 7313748 1 Capsule(s) PO TID as needed for pain 11/21/2017 11/20/2017 Inactive cyclobenzaprine 5 mg tablet RxNorm: 829538 1 Tablet(s) PO TID as needed muscle spasms 11/18/2017 05/01/2018 Inactive gabapentin 300 mg capsule RxNorm: 400905 1 Capsule(s) PO BID No Start Date 12/03/2017 Inactive Medication Administered Medication Codes Instructions Start Date Status Kenalog 40 mg/mL suspension for injection RxNorm: 1986590 1Milliliter 06/05/2018 No longer Active Immunizations No [...] Date INJ TRIGGER POINT 08/06 MUSCL CPT-4: 84406 06/05/2018 TRIAMCINOLONE ACET INJ NOS CPT-4: J3301 06/05/2018 TRIAMCINOLONE ACET INJ NOS CPT-4: J3301 05/01/2018 INJ TRIGGER POINT 1/2 [facility] CPT-4: 37485 05/01/2018 Vital Signs Date Vital 08/21/2018 Blood Pressure 1: 160/86 Code: 8480-6 Heart Rate 1: 95 bpm Height: 5'7" SpO2: 98% 08/18/2018 Blood Pressure 1: 152/96 Code: 8480-6 Heart Rate 1: 118 bpm Height: 5'7" SpO2: 97% 07/03/2018 Blood Pressure 1: 130/82 Code: 8480-6 BMI: 28.5 Code: 61836-0 Heart Rate 1: 92 bpm Height: 5'7" SpO2: 98% Weight: 182 lbs 06/05/2018 Blood Pressure 1: 140/68 Code: 8480-6 BMI: 28.5 Code: 68129-2 Heart Rate 1: 97 bpm Height: 5'7" SpO2: 98% Weight: 182 lbs 05/01/2018 Blood Pressure 1: 124/72 Code: 8480-6 BMI: 27.1 Code: 36405-7 Heart Rate 1: 86 bpm Height: 5'7" SpO2: 97% Weight: 173 lbs 03/24/2018 Blood Pressure 1: 136/62 Code: 8480-6 BMI: 27.4 Code: 41494-6 Heart Rate 1: 96 bpm Height: 5'7" SpO2: 98% Weight: 175 lbs 11/18/2017 Blood Pressure 1: 152/80 Code: 8480-6 BMI: 27.6 Code: 69722-1 Heart Rate 1: 92 bpm Height: 5'7" [...] in thoracic spine[ICD10: M54.6] Shelly Galvez MD, [facility] CPT- 4: 87413 08/21/2018 10631 EST. PATIENT, LEVEL III Diagnosis: Low back pain[ICD10: M54.5] Diagnosis: Pain in thoracic spine[ICD10: M54.6] Diagnosis: Muscle spasm of back[ICD10: M62.830] Diagnosis: Cervicalgia[ICD10: M54.2] Diagnosis: Carpal tunnel syndrome, left upper limb[ICD10: G56.02] Diagnosis: Carpal tunnel syndrome, right upper limb[ICD10: G56.01] Shelly Galvez MD, [facility] CPT-4: 43046 08/18/2018 41369 EST. PATIENT, LEVEL III Diagnosis: Low back pain[ICD10: M54.5] Diagnosis: Pain in thoracic spine[ICD10: M54.6] Diagnosis: Muscle spasm of back[ICD10: M62.830] Diagnosis: Cervicalgia[ICD10: M54.2] Shelly Galvez MD, [facility] CPT-4: 91410 07/03/2018 46641 EST. PATIENT, LEVEL III Diagnosis: Low back pain[ICD10: M54.5] Diagnosis: Pain in thoracic spine[ICD10: M54.6] Diagnosis: Muscle spasm of back[ICD10: M62.830] Shelly Galvez MD, [facility] CPT- 4: 65839 06/05/2018 87844 EST. PATIENT, LEVEL IV Diagnosis: Low back pain[ICD10: M54.5] Diagnosis: Pain in thoracic spine[ICD10: M54.6] Diagnosis: Muscle spasm of back[ICD10: M62.830] [facility] CPT- 4: 00080 05/01/2018 72864 EST. PATIENT, LEVEL IV Diagnosis: Low back pain[ICD10: M54.5] Diagnosis: Pain in thoracic spine[ICD10: M54.6] Diagnosis: Muscle spasm of back[ICD10: M62.830] [facility] CPT- 4: 89731 03/24/2018 OFFICE VISIT, NEW - LEVEL 4 Diagnosis: Low back pain[ICD10: M54.5] Diagnosis: Pain in thoracic spine[ICD10: M54.6] Diagnosis: Abnormal findings on diagnostic imaging of other specified body structures[ICD10: R93.8] Diagnosis: Muscle spasm of back[ICD10: M62.830] [facility] CPT- 4: 77249 11/18/2017 Plan of Care Planned Activity Notes [...] of over-medication. 08/21/2018 Appointment: Shelly Carney WPtel: [address] [place], [place] [address] (15 min) Moderate 08/21/2018 Patient Education: Patient [...] plan. 08/18/2018 Appointment: Shelly Carney WPtel: [phone] [facility] [place] (15 min) Moderate 08/18/2018 Patient Education: [...] practice. Pt is to continue with his clinical lab specialist for his ongoing back pain. 07/03/2018 Appointment: Shelly Carney WPtel: [phone] [facility] [place] (15 min) Moderate 07/03/2018 Patient Education: Patient Medication Summary Completed 07/03/2018 Patient Education: Back Pain Completed 07/03/2018 Patient Education: .Cervicalgia Neck Pain Completed 07/03/2018 Appointment: Shel[facility] Carney [facility]el[facility] [phone] [facility] [place] (15 min) Moderate 06/30/2018 Care Plan: Referral Order SNOMED-CT : 181069415 Pending 06/09/2018 Visit Plan: Chronic Back pain [...] process. 06/05/2018 Appointment: Shelly Carney WPtel: [phone] [facility] (15 min) Moderate 06/05/2018 Patient Education: Patient [...] practice. Pt is to continue with his clinical lab specialist for his ongoing back pain. Trigger Points - Injected trigger points today, pt given post-injection instructions, signs and symptoms for which to call the office. Pt to use heat to the muscles today, and take an anti-inflammatory today unless otherwise contraindicated by renal function or other disease process. 05/01/2018 Appointment: Shelly Carney WPtel: [phone] [facility] [place] (15 min) Moderate 05/01/2018 Patient [...] practice. Pt is to continue with his clinical lab specialist for his ongoing back pain. 03/24/2018 Appointment: Shelly Carney WPtel: [phone] [facility] (30 min) Complex 03/24/2018 Patient Education: Patient Medication Summary Completed 03/24/2018 Referral: [facility] W[facility]: [address] [place] [address] [id number] [place] Referral Initiated 12/02/2017 Care Plan: Referral Order SNOMED-CT : 610113886 Pending 11/28/2017 Visit Plan: back pain- the [...] a referral. 11/18/2017 Appointment: Shelly Carney WPtel: [facility] New Patient 11/18/2017 Patient Education: Patient Medication Summary Completed 11/18/2017 Referral: Sudha Ruby Referral Initiated Referral: [facility] W[facility]el: [address] [place] [address] [id number] Referral Initiated Instructions Comment . Chronic Back [...] practice. Pt is to continue with his clinical lab specialist for his ongoing back pain. . [...] practice. Pt is to continue with his clinical lab specialist for his ongoing back pain. . [...] practice. Pt is to continue with his clinical lab specialist for his ongoing back pain. Trigger [...]
--- OUTSIDE RECORDS SUMMARY | 2019-01-14 10:49 | XMS REPORT | CCD ---
Author Author Shelly Carney Organization [facility] Address [address] [place] [address] Phone Care Team Providers Care Campaign Developer Name Role Phone PP Unavailable CCM Unavailable Summary Purpose Interface Exchange Insurance Providers Payer name Policy type / Coverage type Covered republican ID Effective Begin Date Effective End Date [facility] Medicaid [id number] Unknown Family history Father Diagnosis Age At Onset Diabetes mellitus Type 2 Unknown Hyperlipidemia Unknown Brother Diagnosis Age At Onset Diabetes mellitus Type 2 Unknown Social History Social History Element Codes Description Effective Dates Marital status Unknown Single 11/18/2017 Number of children Unknown 2 11/18/[address]: 07883439 Current every day smoker 11/18/2017 Number of years using tobacco Unknown 10 - 20 11/18/2017 Number of cigarettes/day Unknown 10 (Half a pack) 11/18/[address]: 576882 Currently drinks alcohol 11/18/2017 Frequency of drinks SNOMED CT: 250266783 1- 4 drinks per week 11/18/2017 Allergies, [...] Start Date Stop Date Status Fill Instructions gabapentin 300 mg capsule RxNorm: 856258 1 Capsule(s) PO in morning and at noon and 2 pills at night 08/18/2018 12/15/2018 Active Lortab 5 mg-325 mg tablet RxNorm: 1910268 1 Tablet(s) PO Q6 as needed ok'd to fill 1 x 08/15/2018 10/13/2018 Active gabapentin 300 mg capsule RxNorm: 566909 1 Capsule(s) PO TID 08/04/2018 08/17/2018 Inactive baclofen 10 mg tablet RxNorm: 831914 1 Tablet(s) PO TID as needed muscle spasms 07/31/2018 08/09/2018 Inactive Lortab 5 mg-325 mg tablet RxNorm: 4886060 1 Tablet(s) PO Q6 as needed ok'd to fill 1 x 07/31/2018 08/14/2018 Inactive baclofen 10 mg tablet RxNorm: 449664 1 Tablet(s) PO TID as needed muscle spasms 07/25/2018 07/30/2018 Inactive baclofen 10 mg tablet RxNorm: 884205 1 Tablet(s) PO TID as needed muscle spasms 07/23/2018 07/24/2018 Inactive baclofen 10 mg tablet RxNorm: 178768 1 Tablet(s) PO TID as needed muscle spasms 07/18/2018 07/22/2018 Inactive ibuprofen 800 mg tablet RxNorm: 131596 1 Tablet(s) PO TID as needed 07/11/2018 11/07/2018 Active ibuprofen 800 mg tablet RxNorm: 894899 1 Tablet(s) PO TID as needed 07/11/2018 07/10/2018 Inactive ibuprofen 800 mg tablet RxNorm: 493724 1 Tablet(s) PO TID as needed 07/11/2018 07/10/2018 Inactive Duexis 800 mg-26.6 mg tablet RxNorm: 9825135 1 Tablet(s) PO TID as needed 07/08/2018 08/06/2018 Inactive prednisone 20 mg tablet RxNorm: 090746 1 Tablet(s) PO UD 07/08/2018 07/12/2018 Inactive 40,40,20,20,10,10, baclofen 10 mg tablet RxNorm: 221231 1 Tablet(s) PO TID as needed muscle spasms 07/08/2018 07/17/2018 Inactive prednisone 20 mg tablet RxNorm: 398183 2 Tablet(s) PO daily 07/03/2018 07/07/2018 Inactive baclofen 10 mg tablet RxNorm: 417164 1 Tablet(s) PO TID 07/03/2018 07/07/2018 Inactive Lortab 5 mg-325 mg tablet RxNorm: 1961830 1 Tablet(s) PO Q6 as needed ok'd to fill 1 x 06/20/2018 07/19/2018 Inactive Kenalog 40 mg/mL suspension for injection RxNorm: 2095719 1 Milliliter(s) Inj 06/05/2018 06/05/2018 Inactive cyclobenzaprine 5 mg tablet RxNorm: 827723 1 Tablet(s) PO TID as needed muscle spasms 06/03/2018 No Stop Date Active Lortab 5 mg-325 mg tablet RxNorm: 6645926 1 Tablet(s) PO Q6 as needed ok'd to fill 1 x 05/08/2018 06/06/2018 Inactive cyclobenzaprine 5 mg tablet RxNorm: 825639 1 Tablet(s) PO TID as needed muscle spasms 05/02/2018 06/02/2018 Inactive Lortab 5 mg-325 mg tablet RxNorm: 6635833 1 Tablet(s) PO Q6 04/24/2018 05/07/2018 Inactive gabapentin 300 mg capsule RxNorm: 076314 1 Capsule(s) PO TID 04/18/2018 08/03/2018 Inactive gabapentin 300 mg capsule RxNorm: 080161 1 Capsule(s) PO TID 02/14/2018 04/17/2018 Inactive gabapentin 300 mg capsule RxNorm: 714980 1 Capsule(s) PO TID 01/14/2018 02/13/2018 Inactive gabapentin 300 mg capsule RxNorm: 658877 1 Capsule(s) PO TID 12/04/2017 01/02/2018 Inactive Zorvolex 35 mg capsule RxNorm: 4753321 1 Capsule(s) PO TID as needed for pain 11/25/2017 12/24/2017 Inactive Zorvolex 35 mg capsule RxNorm: 5440707 1 Capsule(s) PO TID as needed for pain 11/21/2017 11/24/2017 Inactive Zorvolex 35 mg capsule RxNorm: 0744919 1 Capsule(s) PO TID as needed for pain 11/21/2017 11/20/2017 Inactive cyclobenzaprine 5 mg tablet RxNorm: 281424 1 Tablet(s) PO TID as needed muscle spasms 11/18/2017 05/01/2018 Inactive gabapentin 300 mg capsule RxNorm: 747941 1 Capsule(s) PO BID No Start Date 12/03/2017 Inactive Medication Administered Medication Codes Instructions Start Date Status Kenalog 40 mg/mL suspension for injection RxNorm: 9511108 1Milliliter 06/05/2018 No longer Active Immunizations No Immunization data Assessments Condition Codes Effective Dates Low back pain ICD-10: M54.5 ICD-9: 724.2 08/18/2018 Carpal tunnel syndrome, left upper limb ICD-10: G56.02 ICD-9: 354.0 08/18/2018 Cervicalgia ICD-10: M54.2 ICD-9: 723.1 08/18/2018 Muscle spasm of back ICD-10: M62.830 ICD-9: 724.8 08/18/2018 Pain in thoracic spine ICD-10: M54.6 ICD-9: 724.1 08/18/2018 Carpal tunnel syndrome, right upper limb ICD-10: G56.01 ICD-9: 354.0 08/18/2018 Abnormal findings on diagnostic imaging of other specified body structures ICD-10: R93.8 ICD-9: 793.2 11/18/2017 Reason For Visit Reason For Visit Effective Dates Notes hypertension 08/18/2018 low back pain 07/03/2018 low back pain 06/05/2018 back pain 05/01/2018 back pain 03/24/2018 back pain 11/18/2017 Results No Results data Review of Systems System Result Effective Dates Constitutional No recent illness 08/18/2018 Constitutional No [...] Result Effective Dates Notes Full Exam - General 1994 Constitutional general [...] Date INJ TRIGGER POINT 1/2 MUSCL CPT-4: 67248 06/05/2018 TRIAMCINOLONE ACET INJ NOS CPT-4: J3301 06/05/2018 TRIAMCINOLONE ACET INJ NOS CPT-4: J3301 05/01/2018 INJ TRIGGER POINT 1/2 MUSCL CPT-4: 69844 05/01/2018 Vital Signs Date Vital 08/18/2018 Blood Pressure 1: 152/96 Code: 8480-6 Heart Rate 1: 118 bpm Height: 5'7" SpO2: 97% 07/03/2018 Blood Pressure 1: 130/82 Code: 8480-6 BMI: 28.5 Code: 48385-5 Heart Rate 1: 92 bpm Height: 5'7" SpO2: 98% Weight: 182 lbs 06/05/2018 Blood Pressure 1: 140/68 Code: 8480-6 BMI: 28.5 Code: 34963-0 Heart Rate 1: 97 bpm Height: 5'7" SpO2: 98% Weight: 182 lbs 05/01/2018 Blood Pressure 1: 124/72 Code: 8480-6 BMI: 27.1 Code: 25354-4 Heart Rate 1: 86 bpm Height: 5'7" SpO2: 97% Weight: 173 lbs 03/24/2018 Blood Pressure 1: 136/62 Code: 8480-6 BMI: 27.4 Code: 20917-5 Heart Rate 1: 96 bpm Height: 5'7" SpO2: 98% Weight: 175 lbs 11/18/2017 Blood Pressure 1: 152/80 Code: 8480-6 BMI: 27.6 Code: 69429-8 Heart Rate 1: 92 bpm Height: 5'7" SpO2: 98% Weight: 176 lbs Functional Status No Functional Status data History of Present Illness Symptom Name Status Result Effective Date Notes Location lumbar spine 08/18/2018 None Onset and [...] data Encounters Encounter Performer Location Codes Date 67453 EST. PATIENT, LEVEL III Diagnosis: Low back pain[ICD10: M54.5] Diagnosis: Pain in thoracic spine[ICD10: M54.6] Diagnosis: Muscle spasm of back[ICD10: M62.830] Diagnosis: Cervicalgia[ICD10: M54.2] Diagnosis: Carpal tunnel syndrome, left upper limb[ICD10: G56.02] Diagnosis: Carpal tunnel syndrome, right upper limb[ICD10: G56.01] [facility] CPT-4: 65111 08/18/2018 49622 EST. PATIENT, LEVEL III Diagnosis: Low back pain[ICD10: M54.5] Diagnosis: Pain in thoracic spine[ICD10: M54.6] Diagnosis: Muscle spasm of back[ICD10: M62.830] Diagnosis: Cervicalgia[ICD10: M54.2] [facility] CPT-4: 65461 07/03/2018 82962 EST. PATIENT, LEVEL III Diagnosis: Low back pain[ICD10: M54.5] Diagnosis: Pain in thoracic spine[ICD10: M54.6] Diagnosis: Muscle spasm of back[ICD10: M62.830] [facility]ly Galvez MD, [facility] CPT- 4: 31790 06/05/2018 33760 EST. PATIENT, LEVEL IV Diagnosis: Low back pain[ICD10: M54.5] Diagnosis: Pain in thoracic spine[ICD10: M54.6] Diagnosis: Muscle spasm of back[ICD10: M62.830] Shelly Galvez MD, [facility] CPT- 4: 23196 05/01/2018 92550 EST. PATIENT, LEVEL IV Diagnosis: Low back pain[ICD10: M54.5] Diagnosis: Pain in thoracic spine[ICD10: M54.6] Diagnosis: Muscle spasm of back[ICD10: M62.830] Shelly Galvez MD, [facility] CPT- 4: 05448 03/24/2018 OFFICE VISIT, NEW - LEVEL 4 Diagnosis: Low back pain[ICD10: M54.5] Diagnosis: Pain in thoracic spine[ICD10: M54.6] Diagnosis: Abnormal findings on diagnostic imaging of other specified body structures[ICD10: R93.8] Diagnosis: Muscle spasm of back[ICD10: M62.830] Shelly Galvez MD, [facility] CPT- 4: 93635 11/18/2017 Plan of Care Planned Activity Notes Codes Status Date Visit Plan: Chronic pain - the patient [...] changes in the current treatment plan. 08/18/2018 Patient Education: Patient Medication Summary Completed [...] practice. 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 07/03/2018 Appointment: Shelly Carney WPtel: [phone] [facility] [place] (15 min) Moderate 07/03/2018 Patient Education: Patient Medication Summary Completed 07/03/2018 Patient Education: Back Pain Completed 07/03/2018 Patient Education: .Cervicalgia Neck Pain Completed 07/03/2018 Appointment: Shelly Carney WPtel: [phone] [facility] [place] (15 min) Moderate 06/30/2018 Care Plan: Referral Order SNOMED-CT : 764403584 Pending 06/09/2018 Visit Plan: Chronic Back pain [...] process. 06/05/2018 [facility] [phone] [facility] [place] (15 min) Moderate 06/05/2018 Patient [...] practice. 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 Trigger Points - Injected trigger points today, pt given post-injection instructions, signs and symptoms for which to call the office. Pt to use heat to the muscles today, and take an anti-inflammatory today unless otherwise contraindicated by renal function or other disease process. 05/01/2018 Appointment: Shelly Carney WPtel: [facility] (15 min) Moderate 05/01/2018 Patient Education: Patient [...] practice. 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 03/24/2018 Appointment: Shelly Carney WPtel[facility] (30 min) Complex 03/24/2018 Patient Education: Patient Medication Summary Completed 03/24/2018 Referral: [facility] W[facility]el: [address] [id number] Referral Initiated 12/02/2017 Care Plan: Referral Order SNOMED-CT : 058877351 Pending 11/28/2017 Visit Plan: back pain- the [...] referral. 11/18/2017 Appointment: Shelly Carney [facility]el[facility] [phone] [facility] New Patient 11/18/2017 Patient Education: Patient Medication Summary Completed 11/18/2017 Referral: Sudha Ruby Referral Initiated Referral: C[facility]ric [facility] W[facility]el: [address] [facility] [address] [place], [place] [id number] Referral Initiated Instructions Comment . Chronic Back [...] practice. 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 . back [...] practice. 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 . Chronic Back pain - the patient [...] practice. 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 Trigger Points [...]
[2019-01-14] MEDS ORDERED: ROPIVACAINE 5MG/ML 30ML VIAL ONE (10:50)
--- OUTSIDE RECORDS SUMMARY | 2019-01-14 10:50 | XMS REPORT | CCD ---
Author Author Shelly Carney Organization [facility] Address [address] [place] [address] Phone Care Team Providers Care Scientific Linguist Name Role Phone PP Unavailable CCM Unavailable Summary Purpose Interface Exchange Insurance Providers Payer name Policy type / Coverage type Covered democrat ID Effective Begin Date Effective End Date [facility] Medicaid [id number] Unknown Family history Father Diagnosis Age At Onset Diabetes mellitus Type 2 Unknown Hyperlipidemia Unknown Brother Diagnosis Age At Onset Diabetes mellitus Type 2 Unknown Social History Social History Element Codes Description Effective Dates Marital status Unknown Single 11/18/2017 Number of children Unknown 2 11/18/[address]: 65763559 Current every day smoker 11/18/2017 Number of years using tobacco Unknown 10 - 20 11/18/2017 Number of cigarettes/day Unknown 10 (Half a pack) 11/18/[address]: 173356 Currently drinks alcohol 11/18/2017 Frequency of drinks SNOMED CT: 703856189 1- 4 drinks per week 11/18/2017 Allergies, Adverse Reactions, Alerts Substance Reaction Codes Entered Date Inactivated Date Status Iodine RxNorm: 5933 11/18/2017 No Inactive Date Active Penicillin Unknown 11/18/2017 No Inactive Date Active Past Medical History Illness Codes Condition Status Onset Date Resolved Date Cervicalgia ICD-9: 723.1 ICD-10: M54.2 Active 07/03/2018 [...] Problems Condition Codes Effective Dates Condition Status Cervicalgia ICD-9: 723.1 ICD-10: M54.2 07/03/2018 Active [...] Instructions Lortab 5 mg-325 mg tablet RxNorm: 8473292 1 Tablet(s) PO Q6 as needed ok'd to fill 1 x 08/15/2018 10/13/2018 Active gabapentin 300 mg capsule RxNorm: 608286 1 Capsule(s) PO TID 08/04/2018 12/01/2018 Active baclofen 10 mg tablet RxNorm: 698307 1 Tablet(s) PO TID as needed muscle spasms 07/31/2018 08/09/2018 Inactive Lortab 5 mg-325 mg tablet RxNorm: 5167196 1 Tablet(s) PO Q6 as needed ok'd to fill 1 x 07/31/2018 08/14/2018 Inactive baclofen 10 mg tablet RxNorm: 304117 1 Tablet(s) PO TID as needed muscle spasms 07/25/2018 07/30/2018 Inactive baclofen 10 mg tablet RxNorm: 634232 1 Tablet(s) PO TID as needed muscle spasms 07/23/2018 07/24/2018 Inactive baclofen 10 mg tablet RxNorm: 585189 1 Tablet(s) PO TID as needed muscle spasms 07/18/2018 07/22/2018 Inactive ibuprofen 800 mg tablet RxNorm: 066484 1 Tablet(s) PO TID as needed 07/11/2018 11/07/2018 Active ibuprofen 800 mg tablet RxNorm: 922732 1 Tablet(s) PO TID as needed 07/11/2018 07/10/2018 Inactive ibuprofen 800 mg tablet RxNorm: 121512 1 Tablet(s) PO TID as needed 07/11/2018 07/10/2018 Inactive Duexis 800 mg-26.6 mg tablet RxNorm: 6957049 1 Tablet(s) PO TID as needed 07/08/2018 08/06/2018 Inactive prednisone 20 mg tablet RxNorm: 196586 1 Tablet(s) PO UD 07/08/2018 07/12/2018 Inactive 40,40,20,20,10,10, baclofen 10 mg tablet RxNorm: 038786 1 Tablet(s) PO TID as needed muscle spasms 07/08/2018 07/17/2018 Inactive prednisone 20 mg tablet RxNorm: 330873 2 Tablet(s) PO daily 07/03/2018 07/07/2018 Inactive baclofen 10 mg tablet RxNorm: 450781 1 Tablet(s) PO TID 07/03/2018 07/07/2018 Inactive Lortab 5 mg-325 mg tablet RxNorm: 8975188 1 Tablet(s) PO Q6 as needed ok'd to fill 1 x 06/20/2018 07/19/2018 Inactive Kenalog 40 mg/mL suspension for injection RxNorm: 6101638 1 Milliliter(s) Inj 06/05/2018 06/05/2018 Inactive cyclobenzaprine 5 mg tablet RxNorm: 586634 1 Tablet(s) PO TID as needed muscle spasms 06/03/2018 No Stop Date Active Lortab 5 mg-325 mg tablet RxNorm: 4695778 1 Tablet(s) PO Q6 as needed ok'd to fill 1 x 05/08/2018 06/06/2018 Inactive cyclobenzaprine 5 mg tablet RxNorm: 740556 1 Tablet(s) PO TID as needed muscle spasms 05/02/2018 06/02/2018 Inactive Lortab 5 mg-325 mg tablet RxNorm: 8805200 1 Tablet(s) PO Q6 04/24/2018 05/07/2018 Inactive gabapentin 300 mg capsule RxNorm: 922617 1 Capsule(s) PO TID 04/18/2018 08/03/2018 Inactive gabapentin 300 mg capsule RxNorm: 877806 1 Capsule(s) PO TID 02/14/2018 04/17/2018 Inactive gabapentin 300 mg capsule RxNorm: 715677 1 Capsule(s) PO TID 01/14/2018 02/13/2018 Inactive gabapentin 300 mg capsule RxNorm: 703611 1 Capsule(s) PO TID 12/04/2017 01/02/2018 Inactive Zorvolex 35 mg capsule RxNorm: 7399467 1 Capsule(s) PO TID as needed for pain 11/25/2017 12/24/2017 Inactive Zorvolex 35 mg capsule RxNorm: 5766159 1 Capsule(s) PO TID as needed for pain 11/21/2017 11/24/2017 Inactive Zorvolex 35 mg capsule RxNorm: 5504239 1 Capsule(s) PO TID as needed for pain 11/21/2017 11/20/2017 Inactive cyclobenzaprine 5 mg tablet RxNorm: 706311 1 Tablet(s) PO TID as needed muscle spasms 11/18/2017 05/01/2018 Inactive gabapentin 300 mg capsule RxNorm: 328110 1 Capsule(s) PO BID No Start Date 12/03/2017 Inactive Medication Administered Medication Codes Instructions Start Date Status Kenalog 40 mg/mL suspension for injection RxNorm: 0411538 1Milliliter 06/05/2018 No longer Active Immunizations No Immunization data Assessments Condition Codes Effective Dates Muscle spasm of back ICD-10: M62.830 ICD-9: 724.8 07/03/2018 Pain in thoracic spine ICD-10: M54.6 ICD-9: 724.1 07/03/2018 Low back pain ICD-10: M54.5 ICD-9: 724.2 07/03/2018 Cervicalgia ICD-10: M54.2 ICD-9: 723.1 07/03/2018 Abnormal findings on diagnostic imaging of other specified body structures ICD-10: R93.8 ICD-9: 793.2 11/18/2017 Reason For Visit Reason For Visit Effective Dates Notes low back pain 07/03/2018 low back pain 06/05/2018 back pain 05/01/2018 back pain 03/24/2018 back pain 11/18/2017 Results No Results data Review of Systems System Result Effective Dates Constitutional No recent illness 07/03/2018 Constitutional No [...] Procedure Codes Date INJ TRIGGER POINT 08/06 [facility] CPT-4: 59334 06/05/2018 TRIAMCINOLONE ACET INJ NOS CPT-4: J3301 06/05/2018 TRIAMCINOLONE ACET INJ NOS CPT-4: J3301 05/01/2018 INJ TRIGGER POINT 2 [facility] CPT-4: 87617 05/01/2018 Vital Signs Date Vital 07/03/2018 Blood Pressure 1: 130/82 Code: 8480-6 BMI: 28.5 Code: 24408-0 Heart Rate 1: 92 bpm Height: 5'7" SpO2: 98% Weight: 182 lbs 06/05/2018 Blood Pressure 1: 140/68 Code: 8480-6 BMI: 28.5 Code: 98970-1 Heart Rate 1: 97 bpm Height: 5'7" SpO2: 98% Weight: 182 lbs 05/01/2018 Blood Pressure 1: 124/72 Code: 8480-6 BMI: 27.1 Code: 61952-1 Heart Rate 1: 86 bpm Height: 5'7" SpO2: 97% Weight: 173 lbs 03/24/2018 Blood Pressure 1: 136/62 Code: 8480-6 BMI: 27.4 Code: 28764-1 Heart Rate 1: 96 bpm Height: 5'7" SpO2: 98% Weight: 175 lbs 11/18/2017 Blood Pressure 1: 152/80 Code: 8480-6 BMI: 27.6 Code: 92869-4 Heart Rate 1: 92 bpm Height: 5'7" SpO2: 98% Weight: 176 lbs Functional Status No Functional Status data History of Present Illness Symptom Name Status Result Effective Date Notes low back pain Location lumbar spine 07/03/2018 [...] Codes Date EST. PATIENT, LEVEL III Diagnosis: Low back pain[ICD10: M54.5] Diagnosis: Pain in thoracic spine[ICD10: M54.6] Diagnosis: Muscle spasm of back[ICD10: M62.830] Diagnosis: Cervicalgia[ICD10: M54.2] Shelly Galvez MD, [facility] CPT-4: 54368 07/03/2018 86024 EST. PATIENT, LEVEL III Diagnosis: Low back pain[ICD10: M54.5] Diagnosis: Pain in thoracic spine[ICD10: M54.6] Diagnosis: Muscle spasm of back[ICD10: M62.830] Shelly Galvez MD, [facility] CPT- 4: 68567 06/05/2018 36035 EST. PATIENT, LEVEL IV Diagnosis: Low back pain[ICD10: M54.5] Diagnosis: Pain in thoracic spine[ICD10: M54.6] Diagnosis: Muscle spasm of back[ICD10: M62.830] Shelly Galvez MD, [facility] CPT- 4: 25290 05/01/2018 15891 EST. PATIENT, LEVEL IV Diagnosis: Low back pain[ICD10: M54.5] Diagnosis: Pain in thoracic spine[ICD10: M54.6] Diagnosis: Muscle spasm of back[ICD10: M62.830] [facility] CPT- 4: 66619 03/24/2018 OFFICE VISIT, NEW - LEVEL 4 Diagnosis: Low back pain[ICD10: M54.5] Diagnosis: Pain in thoracic spine[ICD10: M54.6] Diagnosis: Abnormal findings on diagnostic imaging of other specified body structures[ICD10: R93.8] Diagnosis: Muscle spasm of back[ICD10: M62.830] Shelly Galvez MD, [facility] CPT- 4: 71969 11/18/2017 Plan of Care Planned Activity Notes Codes Status Date Visit Plan: Chronic Back pain - the [...] practice. 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 07/03/2018 Appointment: Shelly Carney WPtel: [phone] [facility] [place] (15 min) Moderate 07/03/2018 Patient Education: Patient Medication Summary Completed 07/03/2018 Patient Education: Back Pain Completed 07/03/2018 Patient Education: .Cervicalgia Neck Pain Completed 07/03/2018 Appointment: Shelly Carney WPtel: [phone] [facility] [place] (15 min) Moderate 06/30/2018 Care Plan: Referral Order SNOMED-CT : 755407615 Pending 06/09/2018 Visit Plan: Chronic Back pain [...] process. 06/05/2018 [phone] [facility] [place] (15 min) Moderate 06/05/2018 Patient [...] practice. 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 Trigger Points - Injected trigger points today, pt given post-injection instructions, signs and symptoms for which to call the office. Pt to use heat to the muscles today, and take an anti-inflammatory today unless otherwise contraindicated by renal function or other disease process. 05/01/2018 Appointment: Shelly Carney WPtel: [facility] [place] (15 min) Moderate 05/01/2018 Patient [...] practice. 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 03/24/2018 Appointment: Shelly Carney WPtel: [facility] [place] (30 min) Complex 03/24/2018 Patient Education: Patient Medication Summary Completed 03/24/2018 Referral: Ortho, [facility] WPtel: [address] [id number] Referral Initiated 12/02/2017 Care Plan: Referral Order SNOMED-CT : 508177509 Pending 11/28/2017 Visit Plan: back pain- the [...] Appointment: Shelly Carney WPtel: [facility] New Patient 11/18/2017 Patient Education: Patient Medication Summary Completed 11/18/2017 Referral: Sudha Ruby Referral Initiated Referral: Cedric [facility] W[facility]el: [address] [facility] [address] [id number] Referral Initiated Instructions Comment . Chronic Back [...] practice. 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 . [...] practice. 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 . Chronic [...] practice. 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 Trigger Points - Injected trigger points today, pt given post-injection instructions, signs and symptoms for which to call the office. Pt to use heat to the muscles today, and take an anti-inflammatory today unless otherwise contraindicated by renal function or other disease process. . Chronic Back pain - will refer [...]
--- OUTSIDE RECORDS SUMMARY | 2019-01-14 10:50 | XMS REPORT | CCD ---
Author Author Shelly Carney Organization [facility] Address [address] [place] [address] Phone Care Team Providers Care Process Laboratory Specialist Name Role Phone PP Unavailable CCM Unavailable Summary Purpose Interface Exchange Insurance Providers Payer name Policy type / Coverage type Covered constitution party ID Effective Begin Date Effective End Date [facility] Medicaid [id number] Unknown Family history Father Diagnosis Age At Onset Diabetes mellitus Type 2 Unknown Hyperlipidemia Unknown Brother Diagnosis Age At Onset Diabetes mellitus Type 2 Unknown Social History Social History Element Codes Description Effective Dates Marital status Unknown Single 11/18/2017 Number of children Unknown 2 11/18/[address]: 64004387 Current every day smoker 11/18/2017 Number of years using tobacco Unknown 10 - 20 11/18/2017 Number of cigarettes/day Unknown 10 (Half a pack) 11/18/[address]: 012577 Currently drinks alcohol 11/18/2017 Frequency of drinks SNOMED CT: 439143246 1- 4 drinks per week 11/18/2017 Allergies, [...] Fill Instructions gabapentin 300 mg capsule RxNorm: 423360 1 Capsule(s) PO in morning and at noon and 2 pills at night 08/18/2018 12/15/2018 Active Lortab 5 mg-325 mg tablet RxNorm: 9404467 1 Tablet(s) PO Q6 as needed ok'd to fill 1 x 08/15/2018 10/13/2018 Active gabapentin 300 mg capsule RxNorm: 439901 1 Capsule(s) PO TID 08/04/2018 08/17/2018 Inactive baclofen 10 mg tablet RxNorm: 751024 1 Tablet(s) PO TID as needed muscle spasms 07/31/2018 08/09/2018 Inactive Lortab 5 mg-325 mg tablet RxNorm: 9465978 1 Tablet(s) PO Q6 as needed ok'd to fill 1 x 07/31/2018 08/14/2018 Inactive baclofen 10 mg tablet RxNorm: 052011 1 Tablet(s) PO TID as needed muscle spasms 07/25/2018 07/30/2018 Inactive baclofen 10 mg tablet RxNorm: 730715 1 Tablet(s) PO TID as needed muscle spasms 07/23/2018 07/24/2018 Inactive baclofen 10 mg tablet RxNorm: 951046 1 Tablet(s) PO TID as needed muscle spasms 07/18/2018 07/22/2018 Inactive ibuprofen 800 mg tablet RxNorm: 762793 1 Tablet(s) PO TID as needed 07/11/2018 11/07/2018 Active ibuprofen 800 mg tablet RxNorm: 039013 1 Tablet(s) PO TID as needed 07/11/2018 07/10/2018 Inactive ibuprofen 800 mg tablet RxNorm: 505040 1 Tablet(s) PO TID as needed 07/11/2018 07/10/2018 Inactive Duexis 800 mg-26.6 mg tablet RxNorm: 4506275 1 Tablet(s) PO TID as needed 07/08/2018 08/06/2018 Inactive prednisone 20 mg tablet RxNorm: 732225 1 Tablet(s) PO UD 07/08/2018 07/12/2018 Inactive 40,40,20,20,10,10, baclofen 10 mg tablet RxNorm: 746564 1 Tablet(s) PO TID as needed muscle spasms 07/08/2018 07/17/2018 Inactive prednisone 20 mg tablet RxNorm: 165202 2 Tablet(s) PO daily 07/03/2018 07/07/2018 Inactive baclofen 10 mg tablet RxNorm: 924960 1 Tablet(s) PO TID 07/03/2018 07/07/2018 Inactive Lortab 5 mg-325 mg tablet RxNorm: 6343187 1 Tablet(s) PO Q6 as needed ok'd to fill 1 x 06/20/2018 07/19/2018 Inactive Kenalog 40 mg/mL suspension for injection RxNorm: 7532465 1 Milliliter(s) Inj 06/05/2018 06/05/2018 Inactive cyclobenzaprine 5 mg tablet RxNorm: 387935 1 Tablet(s) PO TID as needed muscle spasms 06/03/2018 No Stop Date Active Lortab 5 mg-325 mg tablet RxNorm: 3552414 1 Tablet(s) PO Q6 as needed ok'd to fill 1 x 05/08/2018 06/06/2018 Inactive cyclobenzaprine 5 mg tablet RxNorm: 748339 1 Tablet(s) PO TID as needed muscle spasms 05/02/2018 06/02/2018 Inactive Lortab 5 mg-325 mg tablet RxNorm: 1915442 1 Tablet(s) PO Q6 04/24/2018 05/07/2018 Inactive gabapentin 300 mg capsule RxNorm: 916690 1 Capsule(s) PO TID 04/18/2018 08/03/2018 Inactive gabapentin 300 mg capsule RxNorm: 976680 1 Capsule(s) PO TID 02/14/2018 04/17/2018 Inactive gabapentin 300 mg capsule RxNorm: 853811 1 Capsule(s) PO TID 01/14/2018 02/13/2018 Inactive gabapentin 300 mg capsule RxNorm: 029502 1 Capsule(s) PO TID 12/04/2017 01/02/2018 Inactive Zorvolex 35 mg capsule RxNorm: 1056921 1 Capsule(s) PO TID as needed for pain 11/25/2017 12/24/2017 Inactive Zorvolex 35 mg capsule RxNorm: 2699455 1 Capsule(s) PO TID as needed for pain 11/21/2017 11/24/2017 Inactive Zorvolex 35 mg capsule RxNorm: 5909003 1 Capsule(s) PO TID as needed for pain 11/21/2017 11/20/2017 Inactive cyclobenzaprine 5 mg tablet RxNorm: 210641 1 Tablet(s) PO TID as needed muscle spasms 11/18/2017 05/01/2018 Inactive gabapentin 300 mg capsule RxNorm: 783724 1 Capsule(s) PO BID No Start Date 12/03/2017 Inactive Medication Administered Medication Codes Instructions Start Date Status Kenalog 40 mg/mL suspension for injection RxNorm: 0186125 1Milliliter 06/05/2018 No longer Active Immunizations No [...] Date INJ TRIGGER POINT 1/2 MUSCL CPT-4: 28695 06/05/2018 TRIAMCINOLONE ACET INJ NOS CPT-4: J3301 06/05/2018 TRIAMCINOLONE ACET INJ NOS CPT-4: J3301 05/01/2018 INJ TRIGGER POINT 1/2 MUSCL CPT-4: 66624 05/01/2018 Vital Signs Date Vital 08/18/2018 Blood Pressure 1: 152/96 Code: 8480-6 Heart Rate 1: 118 bpm Height: 5'7" SpO2: 97% 07/03/2018 Blood Pressure 1: 130/82 Code: 8480-6 BMI: 28.5 Code: 60154-6 Heart Rate 1: 92 bpm Height: 5'7" SpO2: 98% Weight: 182 lbs 06/05/2018 Blood Pressure 1: 140/68 Code: 8480-6 BMI: 28.5 Code: 47851-3 Heart Rate 1: 97 bpm Height: 5'7" SpO2: 98% Weight: 182 lbs 05/01/2018 Blood Pressure 1: 124/72 Code: 8480-6 BMI: 27.1 Code: 15486-5 Heart Rate 1: 86 bpm Height: 5'7" SpO2: 97% Weight: 173 lbs 03/24/2018 Blood Pressure 1: 136/62 Code: 8480-6 BMI: 27.4 Code: 78737-1 Heart Rate 1: 96 bpm Height: 5'7" SpO2: 98% Weight: 175 lbs 11/18/2017 Blood Pressure 1: 152/80 Code: 8480-6 BMI: 27.6 Code: 14691-3 Heart Rate 1: 92 bpm Height: 5'7" [...] data Encounters Encounter Performer Location Codes Date 49864 EST. PATIENT, LEVEL III Diagnosis: Low back pain[ICD10: M54.5] Diagnosis: Pain in thoracic spine[ICD10: M54.6] Diagnosis: Muscle spasm of back[ICD10: M62.830] Diagnosis: Cervicalgia[ICD10: M54.2] Diagnosis: Carpal tunnel syndrome, left upper limb[ICD10: G56.02] Diagnosis: Carpal tunnel syndrome, right upper limb[ICD10: G56.01] [facility] CPT-4: 10685 08/18/2018 70064 EST. PATIENT, LEVEL III Diagnosis: Low back pain[ICD10: M54.5] Diagnosis: Pain in thoracic spine[ICD10: M54.6] Diagnosis: Muscle spasm of back[ICD10: M62.830] Diagnosis: Cervicalgia[ICD10: M54.2] [facility] CPT-4: 22887 07/03/2018 73847 EST. PATIENT, LEVEL III Diagnosis: Low back pain[ICD10: M54.5] Diagnosis: Pain in thoracic spine[ICD10: M54.6] Diagnosis: Muscle spasm of back[ICD10: M62.830] [facility] MD, [facility] CPT- 4: 66034 06/05/2018 72350 EST. PATIENT, LEVEL IV Diagnosis: Low back pain[ICD10: M54.5] Diagnosis: Pain in thoracic spine[ICD10: M54.6] Diagnosis: Muscle spasm of back[ICD10: M62.830] [facility], [facility] CPT- 4: 81818 05/01/2018 40520 EST. PATIENT, LEVEL IV Diagnosis: Low back pain[ICD10: M54.5] Diagnosis: Pain in thoracic spine[ICD10: M54.6] Diagnosis: Muscle spasm of back[ICD10: M62.830] [facility], [facility] CPT- 4: 20213 03/24/2018 OFFICE VISIT, NEW - LEVEL 4 Diagnosis: Low back pain[ICD10: M54.5] Diagnosis: Pain in thoracic spine[ICD10: M54.6] Diagnosis: Abnormal findings on diagnostic imaging of other specified body structures[ICD10: R93.8] Diagnosis: Muscle spasm of back[ICD10: M62.830] [facility], [facility] CPT- 4: 39057 11/18/2017 Plan of Care Planned Activity Notes [...] practice. Pt is to continue with his orthopedic radiologic technologist for his ongoing back pain. 07/03/2018 Appointment: Shelly Carney WPtel: [phone] [facility] [place] (15 min) Moderate 07/03/2018 Patient Education: Patient Medication Summary Completed 07/03/2018 Patient Education: Back Pain Completed 07/03/2018 Patient Education: .Cervicalgia Neck Pain Completed 07/03/2018 Appointment: Shelly Carney WPtel: [phone] [facility] [place] (15 min) Moderate 06/30/2018 Care Plan: Referral Order SNOMED-CT : 161254530 Pending 06/09/2018 Visit Plan: Chronic Back pain [...] process. 06/05/2018 [facility]ment: [facility] [phone] [facility] [place] (15 min) Moderate 06/05/2018 Patient [...] practice. Pt is to continue with his orthopedic radiologic technologist for his ongoing back pain. Trigger Points - Injected trigger points today, pt given post-injection instructions, signs and symptoms for which to call the office. Pt to use heat to the muscles today, and take an anti-inflammatory today unless otherwise contraindicated by renal function or other disease process. 05/01/2018 Appointment: Shelly Carney WPtel: [facility] (15 min) Moderate 05/01/2018 Patient Education: [...] practice. Pt is to continue with his orthopedic radiologic technologist for his ongoing back pain. 03/24/2018 Appointment: Shelly Carney WPtel: [facility] (30 min) Complex 03/24/2018 Patient Education: Patient Medication Summary Completed 03/24/2018 Referral: [facility], [facility] W[facility]el: [address] [id number] Referral Initiated 12/02/2017 Care Plan: Referral Order SNOMED-CT : [id number] Pending 11/28/2017 Visit Plan: back pain- the [...] referral. 11/18/2017 Appointment: Shelly Carney [facility]Ptel[facility] [phone] [facility] New Patient 11/18/2017 Patient Education: Patient Medication Summary Completed 11/18/2017 Referral: Sudha Ruby Referral Initiated Referral: Cedric [facility] W[facility]el: [address] [facility] [address] [place], [place] [id number] Referral Initiated Instructions Comment . Chronic Back [...] practice. Pt is to continue with his orthopedic radiologic technologist for his ongoing back pain. . back [...] practice. Pt is to continue with his orthopedic radiologic technologist for his ongoing back pain. . Chronic [...] practice. Pt is to continue with his orthopedic radiologic technologist for his ongoing back pain. Trigger Points [...]
--- OUTSIDE RECORDS SUMMARY | 2019-01-14 10:51 | XMS REPORT | CCD ---
Author Author Shelly Carney Organization [facility] Address [address] [place] [address] Phone Care Team Providers Care Recreation Worker Name Role Phone PP Unavailable CCM Unavailable Summary Purpose Interface Exchange Insurance Providers Payer name Policy type / Coverage type Covered constitution party ID Effective Begin Date Effective End Date [facility] Medicaid [id number] Unknown Family history Father Diagnosis Age At Onset Diabetes mellitus Type 2 Unknown Hyperlipidemia Unknown Brother Diagnosis Age At Onset Diabetes mellitus Type 2 Unknown Social History Social History Element Codes Description Effective Dates Marital status Unknown Single 11/18/2017 Number of children Unknown 2 11/18/[address]: 82958493 Current every day smoker 11/18/2017 Number of years using tobacco Unknown 10 - 20 11/18/2017 Number of cigarettes/day Unknown 10 (Half a pack) 11/18/[address]: 938600 Currently drinks alcohol 11/18/2017 Frequency of drinks SNOMED CT: 904393722 1- 4 drinks per week 11/18/2017 Allergies, [...] Fill Instructions gabapentin 300 mg capsule RxNorm: 426333 1 Capsule(s) PO TID 08/04/2018 12/01/2018 Active baclofen 10 mg tablet RxNorm: 153427 1 Tablet(s) PO TID as needed muscle spasms 07/31/2018 08/09/2018 Active Lortab 5 mg-325 mg tablet RxNorm: 1287758 1 Tablet(s) PO Q6 as needed ok'd to fill 1 x 07/31/2018 08/29/2018 Active baclofen 10 mg tablet RxNorm: 950793 1 Tablet(s) PO TID as needed muscle spasms 07/25/2018 07/30/2018 Inactive baclofen 10 mg tablet RxNorm: 955935 1 Tablet(s) PO TID as needed muscle spasms 07/23/2018 07/24/2018 Inactive baclofen 10 mg tablet RxNorm: 947739 1 Tablet(s) PO TID as needed muscle spasms 07/18/2018 07/22/2018 Inactive ibuprofen 800 mg tablet RxNorm: 154786 1 Tablet(s) PO TID as needed 07/11/2018 11/07/2018 Active ibuprofen 800 mg tablet RxNorm: 009716 1 Tablet(s) PO TID as needed 07/11/2018 07/10/2018 Inactive ibuprofen 800 mg tablet RxNorm: 055187 1 Tablet(s) PO TID as needed 07/11/2018 07/10/2018 Inactive Duexis 800 mg-26.6 mg tablet RxNorm: 8116429 1 Tablet(s) PO TID as needed 07/08/2018 08/06/2018 Active prednisone 20 mg tablet RxNorm: 082267 1 Tablet(s) PO UD 07/08/2018 07/12/2018 Inactive 40,40,20,20,10,10, baclofen 10 mg tablet RxNorm: 035247 1 Tablet(s) PO TID as needed muscle spasms 07/08/2018 07/17/2018 Inactive prednisone 20 mg tablet RxNorm: 878752 2 Tablet(s) PO daily 07/03/2018 07/07/2018 Inactive baclofen 10 mg tablet RxNorm: 652811 1 Tablet(s) PO TID 07/03/2018 07/07/2018 Inactive Lortab 5 mg-325 mg tablet RxNorm: 0305632 1 Tablet(s) PO Q6 as needed ok'd to fill 1 x 06/20/2018 07/19/2018 Inactive Kenalog 40 mg/mL suspension for injection RxNorm: 0317980 1 Milliliter(s) Inj 06/05/2018 06/05/2018 Inactive cyclobenzaprine 5 mg tablet RxNorm: 722174 1 Tablet(s) PO TID as needed muscle spasms 06/03/2018 No Stop Date Active Lortab 5 mg-325 mg tablet RxNorm: 6927475 1 Tablet(s) PO Q6 as needed ok'd to fill 1 x 05/08/2018 06/06/2018 Inactive cyclobenzaprine 5 mg tablet RxNorm: 951704 1 Tablet(s) PO TID as needed muscle spasms 05/02/2018 06/02/2018 Inactive Lortab 5 mg-325 mg tablet RxNorm: 1221662 1 Tablet(s) PO Q6 04/24/2018 05/07/2018 Inactive gabapentin 300 mg capsule RxNorm: 627599 1 Capsule(s) PO TID 04/18/2018 08/03/2018 Inactive gabapentin 300 mg capsule RxNorm: 998671 1 Capsule(s) PO TID 02/14/2018 04/17/2018 Inactive gabapentin 300 mg capsule RxNorm: 874612 1 Capsule(s) PO TID 01/14/2018 02/13/2018 Inactive gabapentin 300 mg capsule RxNorm: 237009 1 Capsule(s) PO TID 12/04/2017 01/02/2018 Inactive Zorvolex 35 mg capsule RxNorm: 2660590 1 Capsule(s) PO TID as needed for pain 11/25/2017 12/24/2017 Inactive Zorvolex 35 mg capsule RxNorm: 6122341 1 Capsule(s) PO TID as needed for pain 11/21/2017 11/24/2017 Inactive Zorvolex 35 mg capsule RxNorm: 6691868 1 Capsule(s) PO TID as needed for pain 11/21/2017 11/20/2017 Inactive cyclobenzaprine 5 mg tablet RxNorm: 841458 1 Tablet(s) PO TID as needed muscle spasms 11/18/2017 05/01/2018 Inactive gabapentin 300 mg capsule RxNorm: 752410 1 Capsule(s) PO BID No Start Date 12/03/2017 Inactive Medication Administered Medication Codes Instructions Start Date Status Kenalog 40 mg/mL suspension for injection RxNorm: 4536493 1Milliliter 06/05/2018 No longer Active Immunizations No [...] Date INJ TRIGGER POINT 08/06 MUSCL CPT-4: 72989 06/05/2018 TRIAMCINOLONE ACET INJ NOS CPT-4: J3301 06/05/2018 TRIAMCINOLONE ACET INJ NOS CPT-4: J3301 05/01/2018 INJ TRIGGER POINT 2 MUSCL CPT-4: 77147 05/01/2018 Vital Signs Date Vital 07/03/2018 Blood Pressure 1: 130/82 Code: 8480-6 BMI: 28.5 Code: 17501-1 Heart Rate 1: 92 bpm Height: 5'7" SpO2: 98% Weight: 182 lbs 06/05/2018 Blood Pressure 1: 140/68 Code: 8480-6 BMI: 28.5 Code: 11577-2 Heart Rate 1: 97 bpm Height: 5'7" SpO2: 98% Weight: 182 lbs 05/01/2018 Blood Pressure 1: 124/72 Code: 8480-6 BMI: 27.1 Code: 50542-2 Heart Rate 1: 86 bpm Height: 5'7" SpO2: 97% Weight: 173 lbs 03/24/2018 Blood Pressure 1: 136/62 Code: 8480-6 BMI: 27.4 Code: 91929-5 Heart Rate 1: 96 bpm Height: 5'7" SpO2: 98% Weight: 175 lbs 11/18/2017 Blood Pressure 1: 152/80 Code: 8480-6 BMI: 27.6 Code: 21005-0 Heart Rate 1: 92 bpm Height: 5'7" [...] Diagnosis: Cervicalgia[ICD10: M54.2] Shelly Galvez MD, [facility] CPT-4: 35247 07/03/2018 22204 EST. PATIENT, LEVEL III Diagnosis: Low back pain[ICD10: M54.5] Diagnosis: Pain in thoracic spine[ICD10: M54.6] Diagnosis: Muscle spasm of back[ICD10: M62.830] Shelly Galvez MD, [facility] CPT- 4: 03535 06/05/2018 99932 EST. PATIENT, LEVEL IV Diagnosis: Low back pain[ICD10: M54.5] Diagnosis: Pain in thoracic spine[ICD10: M54.6] Diagnosis: Muscle spasm of back[ICD10: M62.830] Shelly Galvez MD, [facility] CPT- 4: 09763 05/01/2018 64265 EST. PATIENT, LEVEL IV Diagnosis: Low back pain[ICD10: M54.5] Diagnosis: Pain in thoracic spine[ICD10: M54.6] Diagnosis: Muscle spasm of back[ICD10: M62.830] Shelly Galvez MD, [facility] CPT- 4: 02229 03/24/2018 OFFICE VISIT, NEW - LEVEL 4 Diagnosis: Low back pain[ICD10: M54.5] Diagnosis: Pain in thoracic spine[ICD10: M54.6] Diagnosis: Abnormal findings on diagnostic imaging of other specified body structures[ICD10: R93.8] Diagnosis: Muscle spasm of back[ICD10: M62.830] Shelly Galvez MD, [facility] CPT- 4: 73699 11/18/2017 Plan of Care Planned Activity Notes [...] practice. 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 07/03/2018 Appointment: Shelly Carney WPtel: [facility]5 [facility] [place] (15 min) Moderate 07/03/2018 Patient Education: Patient Medication Summary Completed 07/03/2018 Patient Education: Back Pain Completed 07/03/2018 Patient Education: .Cervicalgia Neck Pain Completed 07/03/2018 Appointment: Shelly Carney WPtel: [facility] [place] (15 min) Moderate 06/30/2018 Care Plan: Referral Order SNOMED-CT : 515529246 Pending 06/09/2018 Visit Plan: Chronic Back pain [...] disease process. 06/05/2018 Appointment: Shelly Carney WPtel: [facility]4 [facility] [place] (15 min) Moderate 06/05/2018 Patient Education: [...] practice. 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 Trigger Points - Injected trigger points today, pt given post-injection instructions, signs and symptoms for which to call the office. Pt to use heat to the muscles today, and take an anti-inflammatory today unless otherwise contraindicated by renal function or other disease process. 05/01/2018 Appointment: Shelly Carney WPtel: [facility]5 [facility] (15 min) Moderate 05/01/2018 Patient Education: Patient [...] practice. 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 03/24/2018 Appointment: Shelly Carney WPtel: [facility] [place] (30 min) Complex 03/24/2018 Patient Education: Patient Medication Summary Completed 03/24/2018 Referral: [facility], [facility] W[facility]el: [address] [id number] Referral Initiated 12/02/2017 Care Plan: Referral Order SNOMED-CT : [id number] Pending 11/28/2017 Visit Plan: back pain- the [...] a referral. 11/18/2017 Appointment: Shelly Carney WPtel: [facility] New Patient 11/18/2017 Patient Education: Patient Medication Summary Completed 11/18/2017 Referral: Sudha Ruby Referral Initiated Referral: Cedric [facility] W[facility]el: [address] [id number] Referral Initiated Instructions Comment . Chronic Back [...] practice. 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 . [...] practice. 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 . [...] practice. 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 Trigger [...]
--- OUTSIDE RECORDS SUMMARY | 2019-01-14 10:52 | XMS REPORT | CCD ---
Author Author Shelly Carney Organization [facility] Address [address] [place] [address] Phone Care Team Providers Care Rate And Cost Analyst Name Role Phone PP Unavailable CCM Unavailable Summary Purpose Interface Exchange Insurance Providers Payer name Policy type / Coverage type Covered democrat ID Effective Begin Date Effective End Date [facility] Medicaid [id number] Unknown Family history Father Diagnosis Age At Onset Diabetes mellitus Type 2 Unknown Hyperlipidemia Unknown Brother Diagnosis Age At Onset Diabetes mellitus Type 2 Unknown Social History Social History Element Codes Description Effective Dates Marital status Unknown Single 11/18/2017 Number of children Unknown 2 11/18/[address]: 34901792 Current every day smoker 11/18/2017 Number of years using tobacco Unknown 10 - 20 11/18/2017 Number of cigarettes/day Unknown 10 (Half a pack) 11/18/[address]: 949319 Currently drinks alcohol 11/18/2017 Frequency of drinks SNOMED CT: 498723997 1- 4 drinks per week 11/18/2017 Allergies, [...] Fill Instructions baclofen 10 mg tablet RxNorm: 833316 1 Tablet(s) PO TID as needed muscle spasms 07/31/2018 08/09/2018 Active Lortab 5 mg-325 mg tablet RxNorm: 6902512 1 Tablet(s) PO Q6 as needed ok'd to fill 1 x 07/31/2018 08/29/2018 Active baclofen 10 mg tablet RxNorm: 546038 1 Tablet(s) PO TID as needed muscle spasms 07/25/2018 07/30/2018 Inactive baclofen 10 mg tablet RxNorm: 123294 1 Tablet(s) PO TID as needed muscle spasms 07/23/2018 07/24/2018 Inactive baclofen 10 mg tablet RxNorm: 133038 1 Tablet(s) PO TID as needed muscle spasms 07/18/2018 07/22/2018 Inactive ibuprofen 800 mg tablet RxNorm: 941758 1 Tablet(s) PO TID as needed 07/11/2018 11/07/2018 Active ibuprofen 800 mg tablet RxNorm: 809286 1 Tablet(s) PO TID as needed 07/11/2018 07/10/2018 Inactive ibuprofen 800 mg tablet RxNorm: 384274 1 Tablet(s) PO TID as needed 07/11/2018 07/10/2018 Inactive Duexis 800 mg-26.6 mg tablet RxNorm: 9670481 1 Tablet(s) PO TID as needed 07/08/2018 08/06/2018 Active prednisone 20 mg tablet RxNorm: 734535 1 Tablet(s) PO UD 07/08/2018 07/12/2018 Inactive 40,40,20,20,10,10, baclofen 10 mg tablet RxNorm: 412100 1 Tablet(s) PO TID as needed muscle spasms 07/08/2018 07/17/2018 Inactive prednisone 20 mg tablet RxNorm: 598847 2 Tablet(s) PO daily 07/03/2018 07/07/2018 Inactive baclofen 10 mg tablet RxNorm: 685426 1 Tablet(s) PO TID 07/03/2018 07/07/2018 Inactive Lortab 5 mg-325 mg tablet RxNorm: 8327779 1 Tablet(s) PO Q6 as needed ok'd to fill 1 x 06/20/2018 07/19/2018 Inactive Kenalog 40 mg/mL suspension for injection RxNorm: 7489541 1 Milliliter(s) Inj 06/05/2018 06/05/2018 Inactive cyclobenzaprine 5 mg tablet RxNorm: 590290 1 Tablet(s) PO TID as needed muscle spasms 06/03/2018 No Stop Date Active Lortab 5 mg-325 mg tablet RxNorm: 4733445 1 Tablet(s) PO Q6 as needed ok'd to fill 1 x 05/08/2018 06/06/2018 Inactive cyclobenzaprine 5 mg tablet RxNorm: 068620 1 Tablet(s) PO TID as needed muscle spasms 05/02/2018 06/02/2018 Inactive Lortab 5 mg-325 mg tablet RxNorm: 4504305 1 Tablet(s) PO Q6 04/24/2018 05/07/2018 Inactive gabapentin 300 mg capsule RxNorm: 666765 1 Capsule(s) PO TID 04/18/2018 08/15/2018 Active gabapentin 300 mg capsule RxNorm: 076210 1 Capsule(s) PO TID 02/14/2018 04/17/2018 Inactive gabapentin 300 mg capsule RxNorm: 715273 1 Capsule(s) PO TID 01/14/2018 02/13/2018 Inactive gabapentin 300 mg capsule RxNorm: 826402 1 Capsule(s) PO TID 12/04/2017 01/02/2018 Inactive Zorvolex 35 mg capsule RxNorm: 3136018 1 Capsule(s) PO TID as needed for pain 11/25/2017 12/24/2017 Inactive Zorvolex 35 mg capsule RxNorm: 5345150 1 Capsule(s) PO TID as needed for pain 11/21/2017 11/24/2017 Inactive Zorvolex 35 mg capsule RxNorm: 2381211 1 Capsule(s) PO TID as needed for pain 11/21/2017 11/20/2017 Inactive cyclobenzaprine 5 mg tablet RxNorm: 543801 1 Tablet(s) PO TID as needed muscle spasms 11/18/2017 05/01/2018 Inactive gabapentin 300 mg capsule RxNorm: 891590 1 Capsule(s) PO BID No Start Date 12/03/2017 Inactive Medication Administered Medication Codes Instructions Start Date Status Kenalog 40 mg/mL suspension for injection RxNorm: 0573962 1Milliliter 06/05/2018 No longer Active Immunizations No [...] Date INJ TRIGGER POINT 1/2 MUSCL CPT-4: 42771 06/05/2018 TRIAMCINOLONE ACET INJ NOS CPT-4: J3301 06/05/2018 TRIAMCINOLONE ACET INJ NOS CPT-4: J3301 05/01/2018 INJ TRIGGER POINT /2 MUSCL CPT-4: 24665 05/01/2018 Vital Signs Date Vital 07/03/2018 Blood Pressure 1: 130/82 Code: 8480-6 BMI: 28.5 Code: 10396-8 Heart Rate 1: 92 bpm Height: 5'7" SpO2: 98% Weight: 182 lbs 06/05/2018 Blood Pressure 1: 140/68 Code: 8480-6 BMI: 28.5 Code: 32647-0 Heart Rate 1: 97 bpm Height: 5'7" SpO2: 98% Weight: 182 lbs 05/01/2018 Blood Pressure 1: 124/72 Code: 8480-6 BMI: 27.1 Code: 74237-8 Heart Rate 1: 86 bpm Height: 5'7" SpO2: 97% Weight: 173 lbs 03/24/2018 Blood Pressure 1: 136/62 Code: 8480-6 BMI: 27.4 Code: 46336-0 Heart Rate 1: 96 bpm Height: 5'7" SpO2: 98% Weight: 175 lbs 11/18/2017 Blood Pressure 1: 152/80 Code: 8480-6 BMI: 27.6 Code: 11832-1 Heart Rate 1: 92 bpm Height: 5'7" [...] M62.830] Diagnosis: Cervicalgia[ICD10: M54.2] Shelly Galvez MD, [facility] CPT-4: 67731 07/03/2018 91521 EST. PATIENT, LEVEL III Diagnosis: Low back pain[ICD10: M54.5] Diagnosis: Pain in thoracic spine[ICD10: M54.6] Diagnosis: Muscle spasm of back[ICD10: M62.830] Shelly Galvez MD, [facility] CPT- 4: 43460 06/05/2018 08635 EST. PATIENT, LEVEL IV Diagnosis: Low back pain[ICD10: M54.5] Diagnosis: Pain in thoracic spine[ICD10: M54.6] Diagnosis: Muscle spasm of back[ICD10: M62.830] Shelly Galvez MD, [facility] CPT- 4: 05785 05/01/2018 07898 EST. PATIENT, LEVEL IV Diagnosis: Low back pain[ICD10: M54.5] Diagnosis: Pain in thoracic spine[ICD10: M54.6] Diagnosis: Muscle spasm of back[ICD10: M62.830] Shelly Galvez MD, [facility] CPT- 4: 64807 03/24/2018 OFFICE VISIT, NEW - LEVEL 4 Diagnosis: Low back pain[ICD10: M54.5] Diagnosis: Pain in thoracic spine[ICD10: M54.6] Diagnosis: Abnormal findings on diagnostic imaging of other specified body structures[ICD10: R93.8] Diagnosis: Muscle spasm of back[ICD10: M62.830] Shelly Galvez MD, [facility] CPT- 4: 63546 11/18/2017 Plan of Care Planned Activity Notes [...] practice. Pt is to continue with his senior analysis specialist for his ongoing back pain. 07/03/2018 [facility] [phone] [facility] [place] (15 min) Moderate 07/03/2018 Patient Education: Patient Medication Summary Completed 07/03/2018 Patient Education: Back Pain Completed 07/03/2018 Patient Education: .Cervicalgia Neck Pain Completed 07/03/2018 Appointment: Shelly Carney WPtel: [phone] [facility] [place] (15 min) Moderate 06/30/2018 Care Plan: Referral Order SNOMED-CT : 161194722 Pending 06/09/2018 Visit Plan: Chronic Back pain [...] process. 06/05/2018 Appointment: [facility] Car[facility] [phone] [facility] [place] (15 min) Moderate 06/05/2018 Patient [...] practice. Pt is to continue with his senior analysis specialist for his ongoing back pain. Trigger Points - Injected trigger points today, pt given post-injection instructions, signs and symptoms for which to call the office. Pt to use heat to the muscles today, and take an anti-inflammatory today unless otherwise contraindicated by renal function or other disease process. 05/01/2018 Appointment: Shelly Carney WPtel: [phone] [facility] [place] (15 min) Moderate 05/01/2018 Patient Education: [...] practice. Pt is to continue with his senior analysis specialist for his ongoing back pain. 03/24/2018 Appointment: Shelly Carney [facility]Ptel: [facility] [place] (30 min) Complex 03/24/2018 Patient Education: Patient Medication Summary Completed 03/24/2018 Referral: [facility] WPtel: [phone] [facility] [address] [id number] Referral Initiated 12/02/2017 Care Plan: Referral Order SNOMED-CT : 063265881 Pending 11/28/2017 Visit Plan: back pain- the [...] referral. 11/18/2017 Appointment: [facility] Car[facility] [phone] [facility] New Patient 11/18/2017 Patient Education: Patient Medication Summary Completed 11/18/2017 Referral: Sudha Ruby Referral Initiated Referral: [facility] WPtel: [address] [id number] Referral Initiated Instructions Comment . Chronic Back [...] practice. Pt is to continue with his senior analysis specialist for his ongoing back pain. . [...] practice. Pt is to continue with his senior analysis specialist for his ongoing back pain. . [...] practice. Pt is to continue with his senior analysis specialist for his ongoing back pain. Trigger [...]
--- OUTSIDE RECORDS SUMMARY | 2019-01-14 10:53 | XMS REPORT | CCD ---
Author Author Shelly Carney Organization [facility] Address [address] [place] [address] Phone Care Team Providers Care Stoker Erector Name Role Phone PP Unavailable CCM Unavailable Summary Purpose Interface Exchange Insurance Providers Payer name Policy type / Coverage type Covered green party ID Effective Begin Date Effective End Date [facility] Medicaid [id number] Unknown Family history Father Diagnosis Age At Onset Diabetes mellitus Type 2 Unknown Hyperlipidemia Unknown Brother Diagnosis Age At Onset Diabetes mellitus Type 2 Unknown Social History Social History Element Codes Description Effective Dates Marital status Unknown Single 11/18/2017 Number of children Unknown 2 11/18/[address]: 09930059 Current every day smoker 11/18/2017 Number of years using tobacco Unknown 10 - 20 11/18/2017 Number of cigarettes/day Unknown 10 (Half a pack) 11/18/[address]: 742046 Currently drinks alcohol 11/18/2017 Frequency of drinks SNOMED CT: 972836928 1- 4 drinks per week 11/18/2017 Allergies, [...] Fill Instructions baclofen 10 mg tablet RxNorm: 801048 1 Tablet(s) PO TID as needed muscle spasms 07/25/2018 08/03/2018 Active baclofen 10 mg tablet RxNorm: 655205 1 Tablet(s) PO TID as needed muscle spasms 07/23/2018 07/24/2018 Inactive baclofen 10 mg tablet RxNorm: 681181 1 Tablet(s) PO TID as needed muscle spasms 07/18/2018 07/22/2018 Inactive ibuprofen 800 mg tablet RxNorm: 447990 1 Tablet(s) PO TID as needed 07/11/2018 11/07/2018 Active ibuprofen 800 mg tablet RxNorm: 494170 1 Tablet(s) PO TID as needed 07/11/2018 07/10/2018 Inactive ibuprofen 800 mg tablet RxNorm: 186253 1 Tablet(s) PO TID as needed 07/11/2018 07/10/2018 Inactive Duexis 800 mg-26.6 mg tablet RxNorm: 5100656 1 Tablet(s) PO TID as needed 07/08/2018 08/06/2018 Active prednisone 20 mg tablet RxNorm: 084126 1 Tablet(s) PO UD 07/08/2018 07/12/2018 Inactive 40,40,20,20,10,10, baclofen 10 mg tablet RxNorm: 445289 1 Tablet(s) PO TID as needed muscle spasms 07/08/2018 07/17/2018 Inactive prednisone 20 mg tablet RxNorm: 020522 2 Tablet(s) PO daily 07/03/2018 07/07/2018 Inactive baclofen 10 mg tablet RxNorm: 461851 1 Tablet(s) PO TID 07/03/2018 07/07/2018 Inactive Lortab 5 mg-325 mg tablet RxNorm: 2004558 1 Tablet(s) PO Q6 as needed ok'd to fill 1 x 06/20/2018 07/19/2018 Inactive Kenalog 40 mg/mL suspension for injection RxNorm: 3491768 1 Milliliter(s) Inj 06/05/2018 06/05/2018 Inactive cyclobenzaprine 5 mg tablet RxNorm: 583649 1 Tablet(s) PO TID as needed muscle spasms 06/03/2018 No Stop Date Active Lortab 5 mg-325 mg tablet RxNorm: 3345643 1 Tablet(s) PO Q6 as needed ok'd to fill 1 x 05/08/2018 06/06/2018 Inactive cyclobenzaprine 5 mg tablet RxNorm: 570918 1 Tablet(s) PO TID as needed muscle spasms 05/02/2018 06/02/2018 Inactive Lortab 5 mg-325 mg tablet RxNorm: 3831324 1 Tablet(s) PO Q6 04/24/2018 05/07/2018 Inactive gabapentin 300 mg capsule RxNorm: 830159 1 Capsule(s) PO TID 04/18/2018 08/15/2018 Active gabapentin 300 mg capsule RxNorm: 135696 1 Capsule(s) PO TID 02/14/2018 04/17/2018 Inactive gabapentin 300 mg capsule RxNorm: 119488 1 Capsule(s) PO TID 01/14/2018 02/13/2018 Inactive gabapentin 300 mg capsule RxNorm: 226622 1 Capsule(s) PO TID 12/04/2017 01/02/2018 Inactive Zorvolex 35 mg capsule RxNorm: 6056877 1 Capsule(s) PO TID as needed for pain 11/25/2017 12/24/2017 Inactive Zorvolex 35 mg capsule RxNorm: 5103308 1 Capsule(s) PO TID as needed for pain 11/21/2017 11/24/2017 Inactive Zorvolex 35 mg capsule RxNorm: 5536776 1 Capsule(s) PO TID as needed for pain 11/21/2017 11/20/2017 Inactive cyclobenzaprine 5 mg tablet RxNorm: 794270 1 Tablet(s) PO TID as needed muscle spasms 11/18/2017 05/01/2018 Inactive gabapentin 300 mg capsule RxNorm: 710236 1 Capsule(s) PO BID No Start Date 12/03/2017 Inactive Medication Administered Medication Codes Instructions Start Date Status Kenalog 40 mg/mL suspension for injection RxNorm: 5992938 1Milliliter 06/05/2018 No longer Active Immunizations No [...] Date INJ TRIGGER POINT 1/2 MUSCL CPT-4: 87837 06/05/2018 TRIAMCINOLONE ACET INJ NOS CPT-4: J3301 06/05/2018 TRIAMCINOLONE ACET INJ NOS CPT-4: J3301 05/01/2018 INJ TRIGGER POINT /2 MUSCL CPT-4: 58188 05/01/2018 Vital Signs Date Vital 07/03/2018 Blood Pressure 1: 130/82 Code: 8480-6 BMI: 28.5 Code: 17725-8 Heart Rate 1: 92 bpm Height: 5'7" SpO2: 98% Weight: 182 lbs 06/05/2018 Blood Pressure 1: 140/68 Code: 8480-6 BMI: 28.5 Code: 33557-6 Heart Rate 1: 97 bpm Height: 5'7" SpO2: 98% Weight: 182 lbs 05/01/2018 Blood Pressure 1: 124/72 Code: 8480-6 BMI: 27.1 Code: 30233-6 Heart Rate 1: 86 bpm Height: 5'7" SpO2: 97% Weight: 173 lbs 03/24/2018 Blood Pressure 1: 136/62 Code: 8480-6 BMI: 27.4 Code: 68985-3 Heart Rate 1: 96 bpm Height: 5'7" SpO2: 98% Weight: 175 lbs 11/18/2017 Blood Pressure 1: 152/80 Code: 8480-6 BMI: 27.6 Code: 28642-4 Heart Rate 1: 92 bpm Height: 5'7" [...] data Encounters Encounter Performer Location Codes Date 75436 EST. PATIENT, LEVEL III Diagnosis: Low back pain[ICD10: M54.5] Diagnosis: Pain in thoracic spine[ICD10: M54.6] Diagnosis: Muscle spasm of back[ICD10: M62.830] Diagnosis: Cervicalgia[ICD10: M54.2] Shelly Galvez MD, [facility] CPT-4: 18664 07/03/2018 40222 EST. PATIENT, LEVEL III Diagnosis: Low back pain[ICD10: M54.5] Diagnosis: Pain in thoracic spine[ICD10: M54.6] Diagnosis: Muscle spasm of back[ICD10: M62.830] Shelly Galvez MD, [facility] CPT- 4: 98358 06/05/2018 96267 EST. PATIENT, LEVEL IV Diagnosis: Low back pain[ICD10: M54.5] Diagnosis: Pain in thoracic spine[ICD10: M54.6] Diagnosis: Muscle spasm of back[ICD10: M62.830] Shelly Galvez MD, [facility] CPT- 4: 36676 05/01/2018 18427 EST. PATIENT, LEVEL IV Diagnosis: Low back pain[ICD10: M54.5] Diagnosis: Pain in thoracic spine[ICD10: M54.6] Diagnosis: Muscle spasm of back[ICD10: M62.830] Shelly Galvez MD, [facility] CPT- 4: 21794 03/24/2018 OFFICE VISIT, NEW - LEVEL 4 Diagnosis: Low back pain[ICD10: M54.5] Diagnosis: Pain in thoracic spine[ICD10: M54.6] Diagnosis: Abnormal findings on diagnostic imaging of other specified body structures[ICD10: R93.8] Diagnosis: Muscle spasm of back[ICD10: M62.830] Shelly Galvez MD, [facility] CPT- 4: 95401 11/18/2017 Plan of Care Planned Activity Notes [...] practice. Pt is to continue with his ecmo specialist for his ongoing back pain. 07/03/2018 [facility] [phone] [facility] [place] (15 min) Moderate 07/03/2018 Patient Education: Patient Medication Summary Completed 07/03/2018 Patient Education: Back Pain Completed 07/03/2018 Patient Education: .Cervicalgia Neck Pain Completed 07/03/2018 [facility]ment: [facility] Car[facility] [phone] [facility] [place] (15 min) Moderate 06/30/2018 Care Plan: Referral Order SNOMED-CT : 985993314 Pending 06/09/2018 Visit Plan: Chronic Back pain [...] disease process. 06/05/2018 Appointment: [facility] Car[facility] [phone] [facility] [place] (15 min) Moderate 06/05/2018 Patient Education: [...] practice. Pt is to continue with his ecmo specialist for his ongoing back pain. Trigger Points - Injected trigger points today, pt given post-injection instructions, signs and symptoms for which to call the office. Pt to use heat to the muscles today, and take an anti-inflammatory today unless otherwise contraindicated by renal function or other disease process. 05/01/2018 Appointment: [facility] Carney [facility] [phone] [facility] (15 min) Moderate 05/01/2018 Patient Education: Patient [...] practice. Pt is to continue with his ecmo specialist for his ongoing back pain. 03/24/2018 Appointment: [facility] Carney [facility] [phone] [facility] (30 min) Complex 03/24/2018 Patient Education: Patient Medication Summary Completed 03/24/2018 Referral: [facility] WPtel: [address] [id number] Referral Initiated 12/02/2017 Care Plan: Referral Order SNOMED-CT : 976009715 Pending 11/28/2017 Visit Plan: back pain- the [...] referral. 11/18/2017 Appointment: [facility] Carney [facility] [phone] [facility] New Patient 11/18/2017 Patient Education: Patient Medication Summary Completed 11/18/2017 Referral: Sudha Ruby Referral Initiated Referral: [facility] WPtel: [address] [id number] Referral Initiated Instructions Comment . Chronic Back [...] practice. Pt is to continue with his ecmo specialist for his ongoing back pain. . [...] practice. Pt is to continue with his ecmo specialist for his ongoing back pain. . [...] practice. Pt is to continue with his ecmo specialist for his ongoing back pain. Trigger [...]
--- OUTSIDE RECORDS SUMMARY | 2019-01-14 10:53 | XMS REPORT | CCD ---
Author Author Shelly Carney Organization [facility] Address [address] [place] [address] Phone Care Team Providers Care Environmental Aide Name Role Phone PP Unavailable CCM Unavailable Summary Purpose Interface Exchange Insurance Providers Payer name Policy type / Coverage type Covered alliance party ID Effective Begin Date Effective End Date [facility] Medicaid [id number] Unknown Family history Father Diagnosis Age At Onset Diabetes mellitus Type 2 Unknown Hyperlipidemia Unknown Brother Diagnosis Age At Onset Diabetes mellitus Type 2 Unknown Social History Social History Element Codes Description Effective Dates Marital status Unknown Single 11/18/2017 Number of children Unknown 2 11/18/[address]: 73937132 Current every day smoker 11/18/2017 Number of years using tobacco Unknown 10 - 20 11/18/2017 Number of cigarettes/day Unknown 10 (Half a pack) 11/18/[address]: 384698 Currently drinks alcohol 11/18/2017 Frequency of drinks SNOMED CT: 087987751 1- 4 drinks per week 11/18/2017 Allergies, [...] Fill Instructions baclofen 10 mg tablet RxNorm: 735769 1 Tablet(s) PO TID as needed muscle spasms 07/31/2018 08/09/2018 Active baclofen 10 mg tablet RxNorm: 611140 1 Tablet(s) PO TID as needed muscle spasms 07/25/2018 07/30/2018 Inactive baclofen 10 mg tablet RxNorm: 000132 1 Tablet(s) PO TID as needed muscle spasms 07/23/2018 07/24/2018 Inactive baclofen 10 mg tablet RxNorm: 455905 1 Tablet(s) PO TID as needed muscle spasms 07/18/2018 07/22/2018 Inactive ibuprofen 800 mg tablet RxNorm: 130461 1 Tablet(s) PO TID as needed 07/11/2018 11/07/2018 Active ibuprofen 800 mg tablet RxNorm: 276838 1 Tablet(s) PO TID as needed 07/11/2018 07/10/2018 Inactive ibuprofen 800 mg tablet RxNorm: 510739 1 Tablet(s) PO TID as needed 07/11/2018 07/10/2018 Inactive Duexis 800 mg-26.6 mg tablet RxNorm: 6653148 1 Tablet(s) PO TID as needed 07/08/2018 08/06/2018 Active prednisone 20 mg tablet RxNorm: 638826 1 Tablet(s) PO UD 07/08/2018 07/12/2018 Inactive 40,40,20,20,10,10, baclofen 10 mg tablet RxNorm: 753629 1 Tablet(s) PO TID as needed muscle spasms 07/08/2018 07/17/2018 Inactive prednisone 20 mg tablet RxNorm: 094015 2 Tablet(s) PO daily 07/03/2018 07/07/2018 Inactive baclofen 10 mg tablet RxNorm: 293255 1 Tablet(s) PO TID 07/03/2018 07/07/2018 Inactive Lortab 5 mg-325 mg tablet RxNorm: 7577666 1 Tablet(s) PO Q6 as needed ok'd to fill 1 x 06/20/2018 07/19/2018 Inactive Kenalog 40 mg/mL suspension for injection RxNorm: 6722022 1 Milliliter(s) Inj 06/05/2018 06/05/2018 Inactive cyclobenzaprine 5 mg tablet RxNorm: 074321 1 Tablet(s) PO TID as needed muscle spasms 06/03/2018 No Stop Date Active Lortab 5 mg-325 mg tablet RxNorm: 9984694 1 Tablet(s) PO Q6 as needed ok'd to fill 1 x 05/08/2018 06/06/2018 Inactive cyclobenzaprine 5 mg tablet RxNorm: 691820 1 Tablet(s) PO TID as needed muscle spasms 05/02/2018 06/02/2018 Inactive Lortab 5 mg-325 mg tablet RxNorm: 3492020 1 Tablet(s) PO Q6 04/24/2018 05/07/2018 Inactive gabapentin 300 mg capsule RxNorm: 459519 1 Capsule(s) PO TID 04/18/2018 08/15/2018 Active gabapentin 300 mg capsule RxNorm: 298249 1 Capsule(s) PO TID 02/14/2018 04/17/2018 Inactive gabapentin 300 mg capsule RxNorm: 079770 1 Capsule(s) PO TID 01/14/2018 02/13/2018 Inactive gabapentin 300 mg capsule RxNorm: 567011 1 Capsule(s) PO TID 12/04/2017 01/02/2018 Inactive Zorvolex 35 mg capsule RxNorm: 8540799 1 Capsule(s) PO TID as needed for pain 11/25/2017 12/24/2017 Inactive Zorvolex 35 mg capsule RxNorm: 2268713 1 Capsule(s) PO TID as needed for pain 11/21/2017 11/24/2017 Inactive Zorvolex 35 mg capsule RxNorm: 1663277 1 Capsule(s) PO TID as needed for pain 11/21/2017 11/20/2017 Inactive cyclobenzaprine 5 mg tablet RxNorm: 490202 1 Tablet(s) PO TID as needed muscle spasms 11/18/2017 05/01/2018 Inactive gabapentin 300 mg capsule RxNorm: 268455 1 Capsule(s) PO BID No Start Date 12/03/2017 Inactive Medication Administered Medication Codes Instructions Start Date Status Kenalog 40 mg/mL suspension for injection RxNorm: 6724077 1Milliliter 06/05/2018 No longer Active Immunizations No [...] Procedure Codes Date INJ TRIGGER POINT 1/2 [facility] CPT-4: 46177 06/05/2018 TRIAMCINOLONE ACET INJ NOS CPT-4: J3301 06/05/2018 TRIAMCINOLONE ACET INJ NOS CPT-4: J3301 05/01/2018 INJ TRIGGER POINT 1/2 [facility] CPT-4: 58744 05/01/2018 Vital Signs Date Vital 07/03/2018 Blood Pressure 1: 130/82 Code: 8480-6 BMI: 28.5 Code: 16074-8 Heart Rate 1: 92 bpm Height: 5'7" SpO2: 98% Weight: 182 lbs 06/05/2018 Blood Pressure 1: 140/68 Code: 8480-6 BMI: 28.5 Code: 40192-2 Heart Rate 1: 97 bpm Height: 5'7" SpO2: 98% Weight: 182 lbs 05/01/2018 Blood Pressure 1: 124/72 Code: 8480-6 BMI: 27.1 Code: 44197-1 Heart Rate 1: 86 bpm Height: 5'7" SpO2: 97% Weight: 173 lbs 03/24/2018 Blood Pressure 1: 136/62 Code: 8480-6 BMI: 27.4 Code: 11170-1 Heart Rate 1: 96 bpm Height: 5'7" SpO2: 98% Weight: 175 lbs 11/18/2017 Blood Pressure 1: 152/80 Code: 8480-6 BMI: 27.6 Code: 09274-0 Heart Rate 1: 92 bpm Height: 5'7" [...] data Encounters Encounter Performer Location Codes Date 13019 EST. PATIENT, LEVEL III Diagnosis: Low back pain[ICD10: M54.5] Diagnosis: Pain in thoracic spine[ICD10: M54.6] Diagnosis: Muscle spasm of back[ICD10: M62.830] Diagnosis: Cervicalgia[ICD10: M54.2] Shelly Galvez MD, [facility] CPT-4: 37116 07/03/2018 59142 EST. PATIENT, LEVEL III Diagnosis: Low back pain[ICD10: M54.5] Diagnosis: Pain in thoracic spine[ICD10: M54.6] Diagnosis: Muscle spasm of back[ICD10: M62.830] Shelly Galvez MD, [facility] CPT- 4: 80666 06/05/2018 28204 EST. PATIENT, LEVEL IV Diagnosis: Low back pain[ICD10: M54.5] Diagnosis: Pain in thoracic spine[ICD10: M54.6] Diagnosis: Muscle spasm of back[ICD10: M62.830] Shelly Galvez MD, [facility] CPT- 4: 12820 05/01/2018 04865 EST. PATIENT, LEVEL IV Diagnosis: Low back pain[ICD10: M54.5] Diagnosis: Pain in thoracic spine[ICD10: M54.6] Diagnosis: Muscle spasm of back[ICD10: M62.830] Shelly Galvez MD, [facility] CPT- 4: 76336 03/24/2018 OFFICE VISIT, NEW - LEVEL 4 Diagnosis: Low back pain[ICD10: M54.5] Diagnosis: Pain in thoracic spine[ICD10: M54.6] Diagnosis: Abnormal findings on diagnostic imaging of other specified body structures[ICD10: R93.8] Diagnosis: Muscle spasm of back[ICD10: M62.830] [facility] CPT- 4: 53847 11/18/2017 Plan of Care Planned Activity Notes [...] practice. 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 07/03/2018 [facility] [phone] [facility] [place] (15 min) Moderate 07/03/2018 Patient Education: Patient Medication Summary Completed 07/03/2018 Patient Education: Back Pain Completed 07/03/2018 Patient Education: .Cervicalgia Neck Pain Completed 07/03/2018 Appointment: [facility] Car[facility]el[facility] [phone] [facility] [place] (15 min) Moderate 06/30/2018 Care Plan: Referral Order SNOMED-CT : [id number] Pending 06/09/2018 Visit Plan: Chronic Back pain [...] process. 06/05/2018 Appointment: [facility] Car[facility]el[facility] [phone] [facility] [place] (15 min) Moderate 06/05/2018 Patient [...] practice. 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 Trigger Points - Injected trigger points today, pt given post-injection instructions, signs and symptoms for which to call the office. Pt to use heat to the muscles today, and take an anti-inflammatory today unless otherwise contraindicated by renal function or other disease process. 05/01/2018 Appointment: Shel[facility] Carney [facility]Ptel[facility] [phone] [facility] [place] (15 min) Moderate 05/01/2018 Patient [...] practice. 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 03/24/2018 Appointment: Shelly Carney [facility]Ptel[facility] [phone] [facility] [place] (30 min) Complex 03/24/2018 Patient Education: Patient Medication Summary Completed 03/24/2018 Referral: Cedric, [facility] W[facility]el: [address] [id number] Referral Initiated 12/02/2017 Care Plan: Referral Order SNOMED-CT : [id number] Pending 11/28/2017 Visit Plan: back pain- the [...] referral. 11/18/2017 Appointment: Rommel Shelly [facility]Ptel[facility] [phone] [facility] [place] New Patient 11/18/2017 Patient Education: Patient Medication Summary Completed 11/18/2017 Referral: Sudha Ruby Referral Initiated Referral: Ortho, [facility] WPtel: [address] [id number] [place] Referral Initiated Instructions Comment . Chronic [...] practice. 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 . [...] practice. 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 . [...] practice. 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 Trigger [...]
--- OUTSIDE RECORDS SUMMARY | 2019-01-14 10:54 | XMS REPORT | CCD ---
Author Author Shelly Carney Organization [facility] Address [address] [place] [address] Phone Care Team Providers Care Pumper Gauger Apprentice Name Role Phone PP Unavailable CCM Unavailable Summary Purpose Interface Exchange Insurance Providers Payer name Policy type / Coverage type Covered green party ID Effective Begin Date Effective End Date [facility] Medicaid [id number] Unknown Family history Father Diagnosis Age At Onset Diabetes mellitus Type 2 Unknown Hyperlipidemia Unknown Brother Diagnosis Age At Onset Diabetes mellitus Type 2 Unknown Social History Social History Element Codes Description Effective Dates Marital status Unknown Single 11/18/2017 Number of children Unknown 2 11/18/[address]: 26876610 Current every day smoker 11/18/2017 Number of years using tobacco Unknown 10 - 20 11/18/2017 Number of cigarettes/day Unknown 10 (Half a pack) 11/18/[address]: 907335 Currently drinks alcohol 11/18/2017 Frequency of drinks SNOMED CT: 263763492 1- 4 drinks per week 11/18/2017 Allergies, [...] Fill Instructions baclofen 10 mg tablet RxNorm: 462637 1 Tablet(s) PO TID as needed muscle spasms 07/23/2018 08/01/2018 Active baclofen 10 mg tablet RxNorm: 832888 1 Tablet(s) PO TID as needed muscle spasms 07/18/2018 07/22/2018 Inactive ibuprofen 800 mg tablet RxNorm: 749149 1 Tablet(s) PO TID as needed 07/11/2018 11/07/2018 Active ibuprofen 800 mg tablet RxNorm: 443120 1 Tablet(s) PO TID as needed 07/11/2018 07/10/2018 Inactive ibuprofen 800 mg tablet RxNorm: 700609 1 Tablet(s) PO TID as needed 07/11/2018 07/10/2018 Inactive Duexis 800 mg-26.6 mg tablet RxNorm: 6242269 1 Tablet(s) PO TID as needed 07/08/2018 08/06/2018 Active prednisone 20 mg tablet RxNorm: 021666 1 Tablet(s) PO UD 07/08/2018 07/12/2018 Inactive 40,40,20,20,10,10, baclofen 10 mg tablet RxNorm: 912168 1 Tablet(s) PO TID as needed muscle spasms 07/08/2018 07/17/2018 Inactive prednisone 20 mg tablet RxNorm: 046466 2 Tablet(s) PO daily 07/03/2018 07/07/2018 Inactive baclofen 10 mg tablet RxNorm: 963742 1 Tablet(s) PO TID 07/03/2018 07/07/2018 Inactive Lortab 5 mg-325 mg tablet RxNorm: 4609326 1 Tablet(s) PO Q6 as needed ok'd to fill 1 x 06/20/2018 07/19/2018 Inactive Kenalog 40 mg/mL suspension for injection RxNorm: 8861867 1 Milliliter(s) Inj 06/05/2018 06/05/2018 Inactive cyclobenzaprine 5 mg tablet RxNorm: 288899 1 Tablet(s) PO TID as needed muscle spasms 06/03/2018 No Stop Date Active Lortab 5 mg-325 mg tablet RxNorm: 2510732 1 Tablet(s) PO Q6 as needed ok'd to fill 1 x 05/08/2018 06/06/2018 Inactive cyclobenzaprine 5 mg tablet RxNorm: 586435 1 Tablet(s) PO TID as needed muscle spasms 05/02/2018 06/02/2018 Inactive Lortab 5 mg-325 mg tablet RxNorm: 1567142 1 Tablet(s) PO Q6 04/24/2018 05/07/2018 Inactive gabapentin 300 mg capsule RxNorm: 926285 1 Capsule(s) PO TID 04/18/2018 08/15/2018 Active gabapentin 300 mg capsule RxNorm: 222001 1 Capsule(s) PO TID 02/14/2018 04/17/2018 Inactive gabapentin 300 mg capsule RxNorm: 588465 1 Capsule(s) PO TID 01/14/2018 02/13/2018 Inactive gabapentin 300 mg capsule RxNorm: 882006 1 Capsule(s) PO TID 12/04/2017 01/02/2018 Inactive Zorvolex 35 mg capsule RxNorm: 4816987 1 Capsule(s) PO TID as needed for pain 11/25/2017 12/24/2017 Inactive Zorvolex 35 mg capsule RxNorm: 0953451 1 Capsule(s) PO TID as needed for pain 11/21/2017 11/24/2017 Inactive Zorvolex 35 mg capsule RxNorm: 7417399 1 Capsule(s) PO TID as needed for pain 11/21/2017 11/20/2017 Inactive cyclobenzaprine 5 mg tablet RxNorm: 648989 1 Tablet(s) PO TID as needed muscle spasms 11/18/2017 05/01/2018 Inactive gabapentin 300 mg capsule RxNorm: 309652 1 Capsule(s) PO BID No Start Date 12/03/2017 Inactive Medication Administered Medication Codes Instructions Start Date Status Kenalog 40 mg/mL suspension for injection RxNorm: 1776071 1Milliliter 06/05/2018 No longer Active Immunizations No [...] Procedure Codes Date INJ TRIGGER POINT 08/06 [facility] CPT-4: 16443 06/05/2018 TRIAMCINOLONE ACET INJ NOS CPT-4: J3301 06/05/2018 TRIAMCINOLONE ACET INJ NOS CPT-4: J3301 05/01/2018 INJ TRIGGER POINT 08/06 [facility] CPT-4: 49429 05/01/2018 Vital Signs Date Vital 07/03/2018 Blood Pressure 1: 130/82 Code: 8480-6 BMI: 28.5 Code: 90098-9 Heart Rate 1: 92 bpm Height: 5'7" SpO2: 98% Weight: 182 lbs 06/05/2018 Blood Pressure 1: 140/68 Code: 8480-6 BMI: 28.5 Code: 83708-0 Heart Rate 1: 97 bpm Height: 5'7" SpO2: 98% Weight: 182 lbs 05/01/2018 Blood Pressure 1: 124/72 Code: 8480-6 BMI: 27.1 Code: 01090-9 Heart Rate 1: 86 bpm Height: 5'7" SpO2: 97% Weight: 173 lbs 03/24/2018 Blood Pressure 1: 136/62 Code: 8480-6 BMI: 27.4 Code: 81320-0 Heart Rate 1: 96 bpm Height: 5'7" SpO2: 98% Weight: 175 lbs 11/18/2017 Blood Pressure 1: 152/80 Code: 8480-6 BMI: 27.6 Code: 78625-3 Heart Rate 1: 92 bpm Height: 5'7" [...] data Encounters Encounter Performer Location Codes Date 28287 EST. PATIENT, LEVEL III Diagnosis: Low back pain[ICD10: M54.5] Diagnosis: Pain in thoracic spine[ICD10: M54.6] Diagnosis: Muscle spasm of back[ICD10: M62.830] Diagnosis: Cervicalgia[ICD10: M54.2] [facility] CPT-4: 92229 07/03/2018 61582 EST. PATIENT, LEVEL III Diagnosis: Low back pain[ICD10: M54.5] Diagnosis: Pain in thoracic spine[ICD10: M54.6] Diagnosis: Muscle spasm of back[ICD10: M62.830] Shelly Galvez MD, [facility] CPT- 4: 06030 06/05/2018 15871 EST. PATIENT, LEVEL IV Diagnosis: Low back pain[ICD10: M54.5] Diagnosis: Pain in thoracic spine[ICD10: M54.6] Diagnosis: Muscle spasm of back[ICD10: M62.830] Shelly Galvez MD, [facility] CPT- 4: 57561 05/01/2018 85255 EST. PATIENT, LEVEL IV Diagnosis: Low back pain[ICD10: M54.5] Diagnosis: Pain in thoracic spine[ICD10: M54.6] Diagnosis: Muscle spasm of back[ICD10: M62.830] Shelly Galvez MD, [facility] CPT- 4: 07383 03/24/2018 OFFICE VISIT, NEW - LEVEL 4 Diagnosis: Low back pain[ICD10: M54.5] Diagnosis: Pain in thoracic spine[ICD10: M54.6] Diagnosis: Abnormal findings on diagnostic imaging of other specified body structures[ICD10: R93.8] Diagnosis: Muscle spasm of back[ICD10: M62.830] Shelly Galvez MD, [facility] CPT- 4: 90575 11/18/2017 Plan of Care Planned Activity Notes [...] back pain. 07/03/2018 Appointment: Shelly Carney WPtel: [address] [place], [place] [id number] (15 min) Moderate 07/03/2018 Patient Education: Patient Medication Summary Completed 07/03/2018 Patient Education: Back Pain Completed 07/03/2018 Patient Education: .Cervicalgia Neck Pain Completed 07/03/2018 Appointment: [facility]Ptel[facility] [phone] [facility] (15 min) Moderate 06/30/2018 Care Plan: Referral Order SNOMED-CT : [id number] Pending 06/09/2018 Visit Plan: Chronic Back pain [...] process. 06/05/2018 Appointment: Shel[facility] Carney WPtel[facility] [phone] [facility] (15 min) Moderate 06/05/2018 Patient Education: Patient [...] process. 05/01/2018 Appointment: Shel[facility] Carney WPtel[facility] [phone] [facility] (15 min) Moderate 05/01/2018 Patient [...] pain. 03/24/2018 Appointment: Shel[facility] Carney WPtel[facility] [phone] [facility] (30 min) Complex 03/24/2018 Patient Education: Patient Medication Summary Completed 03/24/2018 Referral: Ortho, [facility] W[facility]el: [address] [id number] Referral Initiated 12/02/2017 Care Plan: Referral Order SNOMED-CT : [id number] Pending 11/28/2017 Visit Plan: back pain- the [...] referral. 11/18/2017 Appointment: Shelly Carney WPtel[facility] [phone] [facility] [place] New Patient 11/18/2017 Patient Education: Patient Medication Summary Completed 11/18/2017 Referral: Sudha Ruby Referral Initiated Referral: Cedric [facility] W[facility]el: [address] [id number] [place] Referral Initiated Instructions Comment . Chronic [...]
--- OUTSIDE RECORDS SUMMARY | 2019-01-14 10:55 | XMS REPORT | CCD ---
Author Author Shelly Carney Organization [facility] Address [address] [place] [address] Phone Care Team Providers Care Resistance Welder Name Role Phone PP Unavailable CCM Unavailable Summary Purpose Interface Exchange Insurance Providers Payer name Policy type / Coverage type Covered constitution party ID Effective Begin Date Effective End Date [facility] Medicaid [id number] Unknown Family history Father Diagnosis Age At Onset Diabetes mellitus Type 2 Unknown Hyperlipidemia Unknown Brother Diagnosis Age At Onset Diabetes mellitus Type 2 Unknown Social History Social History Element Codes Description Effective Dates Marital status Unknown Single 11/18/2017 Number of children Unknown 2 11/18/[address]: 98584389 Current every day smoker 11/18/2017 Number of years using tobacco Unknown 10 - 20 11/18/2017 Number of cigarettes/day Unknown 10 (Half a pack) 11/18/[address]: 398767 Currently drinks alcohol 11/18/2017 Frequency of drinks SNOMED CT: 256542840 1- 4 drinks per week 11/18/2017 Allergies, [...] Fill Instructions baclofen 10 mg tablet RxNorm: 451770 1 Tablet(s) PO TID as needed muscle spasms 07/18/2018 07/27/2018 Active ibuprofen 800 mg tablet RxNorm: 328583 1 Tablet(s) PO TID as needed 07/11/2018 11/07/2018 Active ibuprofen 800 mg tablet RxNorm: 491896 1 Tablet(s) PO TID as needed 07/11/2018 07/10/2018 Inactive ibuprofen 800 mg tablet RxNorm: 337189 1 Tablet(s) PO TID as needed 07/11/2018 07/10/2018 Inactive Duexis 800 mg-26.6 mg tablet RxNorm: 1992880 1 Tablet(s) PO TID as needed 07/08/2018 08/06/2018 Active prednisone 20 mg tablet RxNorm: 992092 1 Tablet(s) PO UD 07/08/2018 07/12/2018 Inactive 40,40,20,20,10,10, baclofen 10 mg tablet RxNorm: 566494 1 Tablet(s) PO TID as needed muscle spasms 07/08/2018 07/17/2018 Inactive prednisone 20 mg tablet RxNorm: 520268 2 Tablet(s) PO daily 07/03/2018 07/07/2018 Inactive baclofen 10 mg tablet RxNorm: 174632 1 Tablet(s) PO TID 07/03/2018 07/07/2018 Inactive Lortab 5 mg-325 mg tablet RxNorm: 8455812 1 Tablet(s) PO Q6 as needed ok'd to fill 1 x 06/20/2018 07/19/2018 Active Kenalog 40 mg/mL suspension for injection RxNorm: 9863778 1 Milliliter(s) Inj 06/05/2018 06/05/2018 Inactive cyclobenzaprine 5 mg tablet RxNorm: 063330 1 Tablet(s) PO TID as needed muscle spasms 06/03/2018 No Stop Date Active Lortab 5 mg-325 mg tablet RxNorm: 4381918 1 Tablet(s) PO Q6 as needed ok'd to fill 1 x 05/08/2018 06/06/2018 Inactive cyclobenzaprine 5 mg tablet RxNorm: 812325 1 Tablet(s) PO TID as needed muscle spasms 05/02/2018 06/02/2018 Inactive Lortab 5 mg-325 mg tablet RxNorm: 9642619 1 Tablet(s) PO Q6 04/24/2018 05/07/2018 Inactive gabapentin 300 mg capsule RxNorm: 205849 1 Capsule(s) PO TID 04/18/2018 08/15/2018 Active gabapentin 300 mg capsule RxNorm: 005352 1 Capsule(s) PO TID 02/14/2018 04/17/2018 Inactive gabapentin 300 mg capsule RxNorm: 350010 1 Capsule(s) PO TID 01/14/2018 02/13/2018 Inactive gabapentin 300 mg capsule RxNorm: 407513 1 Capsule(s) PO TID 12/04/2017 01/02/2018 Inactive Zorvolex 35 mg capsule RxNorm: 7821475 1 Capsule(s) PO TID as needed for pain 11/25/2017 12/24/2017 Inactive Zorvolex 35 mg capsule RxNorm: 2028250 1 Capsule(s) PO TID as needed for pain 11/21/2017 11/24/2017 Inactive Zorvolex 35 mg capsule RxNorm: 7428167 1 Capsule(s) PO TID as needed for pain 11/21/2017 11/20/2017 Inactive cyclobenzaprine 5 mg tablet RxNorm: 659638 1 Tablet(s) PO TID as needed muscle spasms 11/18/2017 05/01/2018 Inactive gabapentin 300 mg capsule RxNorm: 427811 1 Capsule(s) PO BID No Start Date 12/03/2017 Inactive Medication Administered Medication Codes Instructions Start Date Status Kenalog 40 mg/mL suspension for injection RxNorm: 8674490 1Milliliter 06/05/2018 No longer Active Immunizations No [...] Date INJ TRIGGER POINT 12 MUSCL CPT-4: 58667 06/05/2018 TRIAMCINOLONE ACET INJ NOS CPT-4: J3301 06/05/2018 TRIAMCINOLONE ACET INJ NOS CPT-4: J3301 05/01/2018 INJ TRIGGER POINT 1/2 MUSCL CPT-4: 20662 05/01/2018 Vital Signs Date Vital 07/03/2018 Blood Pressure 1: 130/82 Code: 8480-6 BMI: 28.5 Code: 58560-1 Heart Rate 1: 92 bpm Height: 5'7" SpO2: 98% Weight: 182 lbs 06/05/2018 Blood Pressure 1: 140/68 Code: 8480-6 BMI: 28.5 Code: 59666-6 Heart Rate 1: 97 bpm Height: 5'7" SpO2: 98% Weight: 182 lbs 05/01/2018 Blood Pressure 1: 124/72 Code: 8480-6 BMI: 27.1 Code: 37467-4 Heart Rate 1: 86 bpm Height: 5'7" SpO2: 97% Weight: 173 lbs 03/24/2018 Blood Pressure 1: 136/62 Code: 8480-6 BMI: 27.4 Code: 75763-9 Heart Rate 1: 96 bpm Height: 5'7" SpO2: 98% Weight: 175 lbs 11/18/2017 Blood Pressure 1: 152/80 Code: 8480-6 BMI: 27.6 Code: 10292-5 Heart Rate 1: 92 bpm Height: 5'7" [...] Cervicalgia[ICD10: M54.2] [facility] CPT-4: 58359 07/03/2018 35740 EST. PATIENT, LEVEL III Diagnosis: Low back pain[ICD10: M54.5] Diagnosis: Pain in thoracic spine[ICD10: M54.6] Diagnosis: Muscle spasm of back[ICD10: M62.830] Shelly Galvez MD, [facility] CPT- 4: 90457 06/05/2018 15838 EST. PATIENT, LEVEL IV Diagnosis: Low back pain[ICD10: M54.5] Diagnosis: Pain in thoracic spine[ICD10: M54.6] Diagnosis: Muscle spasm of back[ICD10: M62.830] Shelly Galvez MD, [facility] CPT- 4: 59096 05/01/2018 52202 EST. PATIENT, LEVEL IV Diagnosis: Low back pain[ICD10: M54.5] Diagnosis: Pain in thoracic spine[ICD10: M54.6] Diagnosis: Muscle spasm of back[ICD10: M62.830] Shelly Galvez MD, [facility] CPT- 4: 56755 03/24/2018 OFFICE VISIT, NEW - LEVEL 4 Diagnosis: Low back pain[ICD10: M54.5] Diagnosis: Pain in thoracic spine[ICD10: M54.6] Diagnosis: Abnormal findings on diagnostic imaging of other specified body structures[ICD10: R93.8] Diagnosis: Muscle spasm of back[ICD10: M62.830] Shelly Galvez MD, [facility] CPT- 4: 06140 11/18/2017 Plan of Care Planned Activity Notes [...] practice. Pt is to continue with his yard specialist for his ongoing back pain. 07/03/2018 Appointment: Shelly Carney: [address] [place], [place] [address] (15 min) Moderate 07/03/2018 Patient Education: Patient Medication Summary Completed 07/03/2018 Patient Education: Back Pain Completed 07/03/2018 Patient Education: .Cervicalgia Neck Pain Completed 07/03/2018 Appointment: [facility] [phone] [facility] [place] [place] (15 min) Moderate 06/30/2018 Care Plan: Referral Order SNOMED-CT : [id number] Pending 06/09/2018 Visit Plan: Chronic Back pain [...] process. 06/05/2018 Appointment: Shelly Carney WPtel: [phone] [facility] [place] (15 min) Moderate 06/05/2018 Patient Education: [...] practice. Pt is to continue with his yard specialist for his ongoing back pain. Trigger Points - Injected trigger points today, pt given post-injection instructions, signs and symptoms for which to call the office. Pt to use heat to the muscles today, and take an anti-inflammatory today unless otherwise contraindicated by renal function or other disease process. 05/01/2018 Appointment: Shelly Carney WPtel: [phone] [facility] [place] (15 min) Moderate 05/01/2018 Patient Education: [...] practice. Pt is to continue with his yard specialist for his ongoing back pain. 03/24/2018 Appointment: Shelly Carney WPtel: [phone] [facility] (30 min) Complex 03/24/2018 Patient Education: Patient Medication Summary Completed 03/24/2018 Referral: Ortho, [facility] W[facility]el: [address] [id number] Referral Initiated 12/02/2017 Care Plan: Referral Order SNOMED-CT : [id number] Pending 11/28/2017 Visit Plan: back pain- the [...] referral. 11/18/2017 Appointment: Shelly Carney [facility]el: [phone] [facility] [place] New Patient 11/18/2017 Patient Education: Patient Medication Summary Completed 11/18/2017 Referral: Elaine Rubyaret Referral Initiated Referral: Cedric, [facility] W[facility]el: [address] [id number] Referral Initiated Instructions Comment . Chronic Back [...] practice. Pt is to continue with his yard specialist for his ongoing back pain. . [...] practice. Pt is to continue with his yard specialist for his ongoing back pain. . [...] practice. Pt is to continue with his yard specialist for his ongoing back pain. Trigger [...]
--- OUTSIDE RECORDS SUMMARY | 2019-01-14 10:55 | XMS REPORT | CCD ---
Author Author Shelly Carney Organization [facility] Address [address] [place] [address] Phone Care Team Providers Care Jewelry Casting Model Maker Apprentice Name Role Phone PP Unavailable CCM Unavailable Summary Purpose Interface Exchange Insurance Providers Payer name Policy type / Coverage type Covered constitution party ID Effective Begin Date Effective End Date [facility] Medicaid [id number] Unknown Family history Father Diagnosis Age At Onset Diabetes mellitus Type 2 Unknown Hyperlipidemia Unknown Brother Diagnosis Age At Onset Diabetes mellitus Type 2 Unknown Social History Social History Element Codes Description Effective Dates Marital status Unknown Single 11/18/2017 Number of children Unknown 2 11/18/[address]: 39506159 Current every day smoker 11/18/2017 Number of years using tobacco Unknown 10 - 20 11/18/2017 Number of cigarettes/day Unknown 10 (Half a pack) 11/18/[address]: 065660 Currently drinks alcohol 11/18/2017 Frequency of drinks SNOMED CT: 122394445 1- 4 drinks per week 11/18/2017 Allergies, [...] Start Date Stop Date Status Fill Instructions ibuprofen 800 mg tablet RxNorm: 033142 1 Tablet(s) PO TID as needed 07/11/2018 11/07/2018 Active ibuprofen 800 mg tablet RxNorm: 429907 1 Tablet(s) PO TID as needed 07/11/2018 07/10/2018 Inactive ibuprofen 800 mg tablet RxNorm: 439327 1 Tablet(s) PO TID as needed 07/11/2018 07/10/2018 Inactive Duexis 800 mg-26.6 mg tablet RxNorm: 9793271 1 Tablet(s) PO TID as needed 07/08/2018 08/06/2018 Active prednisone 20 mg tablet RxNorm: 502146 1 Tablet(s) PO UD 07/08/2018 07/12/2018 Active 40,40,20,20,10,10, baclofen 10 mg tablet RxNorm: 325528 1 Tablet(s) PO TID as needed muscle spasms 07/08/2018 07/17/2018 Active prednisone 20 mg tablet RxNorm: 928782 2 Tablet(s) PO daily 07/03/2018 07/07/2018 Inactive baclofen 10 mg tablet RxNorm: 222332 1 Tablet(s) PO TID 07/03/2018 07/07/2018 Inactive Lortab 5 mg-325 mg tablet RxNorm: 8129222 1 Tablet(s) PO Q6 as needed ok'd to fill 1 x 06/20/2018 07/19/2018 Active Kenalog 40 mg/mL suspension for injection RxNorm: 3593268 1 Milliliter(s) Inj 06/05/2018 06/05/2018 Inactive cyclobenzaprine 5 mg tablet RxNorm: 027329 1 Tablet(s) PO TID as needed muscle spasms 06/03/2018 No Stop Date Active Lortab 5 mg-325 mg tablet RxNorm: 4656302 1 Tablet(s) PO Q6 as needed ok'd to fill 1 x 05/08/2018 06/06/2018 Inactive cyclobenzaprine 5 mg tablet RxNorm: 541829 1 Tablet(s) PO TID as needed muscle spasms 05/02/2018 06/02/2018 Inactive Lortab 5 mg-325 mg tablet RxNorm: 1315394 1 Tablet(s) PO Q6 04/24/2018 05/07/2018 Inactive gabapentin 300 mg capsule RxNorm: 630310 1 Capsule(s) PO TID 04/18/2018 08/15/2018 Active gabapentin 300 mg capsule RxNorm: 467340 1 Capsule(s) PO TID 02/14/2018 04/17/2018 Inactive gabapentin 300 mg capsule RxNorm: 768393 1 Capsule(s) PO TID 01/14/2018 02/13/2018 Inactive gabapentin 300 mg capsule RxNorm: 987795 1 Capsule(s) PO TID 12/04/2017 01/02/2018 Inactive Zorvolex 35 mg capsule RxNorm: 7023589 1 Capsule(s) PO TID as needed for pain 11/25/2017 12/24/2017 Inactive Zorvolex 35 mg capsule RxNorm: 7656557 1 Capsule(s) PO TID as needed for pain 11/21/2017 11/24/2017 Inactive Zorvolex 35 mg capsule RxNorm: 2298103 1 Capsule(s) PO TID as needed for pain 11/21/2017 11/20/2017 Inactive cyclobenzaprine 5 mg tablet RxNorm: 808008 1 Tablet(s) PO TID as needed muscle spasms 11/18/2017 05/01/2018 Inactive gabapentin 300 mg capsule RxNorm: 676363 1 Capsule(s) PO BID No Start Date 12/03/2017 Inactive Medication Administered Medication Codes Instructions Start Date Status Kenalog 40 mg/mL suspension for injection RxNorm: 1187684 1Milliliter 06/05/2018 No longer Active Immunizations No Immunization data Assessments Condition Codes Effective Dates Pain in thoracic spine ICD-10: M54.6 ICD-9: 724.1 07/03/2018 Low back pain ICD-10: M54.5 ICD-9: 724.2 07/03/2018 Cervicalgia ICD-10: M54.2 ICD-9: 723.1 07/03/2018 Muscle spasm of back ICD-10: M62.830 ICD-9: 724.8 07/03/2018 Abnormal findings on diagnostic imaging of [...] Date INJ TRIGGER POINT 12 MUSCL CPT-4: 86690 06/05/2018 TRIAMCINOLONE ACET INJ NOS CPT-4: J3301 06/05/2018 TRIAMCINOLONE ACET INJ NOS CPT-4: J3301 05/01/2018 INJ TRIGGER POINT 08/06 MUSCL CPT-4: 85076 05/01/2018 Vital Signs Date Vital 07/03/2018 Blood Pressure 1: 130/82 Code: 8480-6 BMI: 28.5 Code: 43609-9 Heart Rate 1: 92 bpm Height: 5'7" SpO2: 98% Weight: 182 lbs 06/05/2018 Blood Pressure 1: 140/68 Code: 8480-6 BMI: 28.5 Code: 65043-6 Heart Rate 1: 97 bpm Height: 5'7" SpO2: 98% Weight: 182 lbs 05/01/2018 Blood Pressure 1: 124/72 Code: 8480-6 BMI: 27.1 Code: 47651-9 Heart Rate 1: 86 bpm Height: 5'7" SpO2: 97% Weight: 173 lbs 03/24/2018 Blood Pressure 1: 136/62 Code: 8480-6 BMI: 27.4 Code: 11468-5 Heart Rate 1: 96 bpm Height: 5'7" SpO2: 98% Weight: 175 lbs 11/18/2017 Blood Pressure 1: 152/80 Code: 8480-6 BMI: 27.6 Code: 78073-6 Heart Rate 1: 92 bpm Height: 5'7" [...] Cervicalgia[ICD10: M54.2] [facility] CPT-4: 63903 07/03/2018 70582 EST. PATIENT, LEVEL III Diagnosis: Low back pain[ICD10: M54.5] Diagnosis: Pain in thoracic spine[ICD10: M54.6] Diagnosis: Muscle spasm of back[ICD10: M62.830] [facility] CPT- 4: 18774 06/05/2018 93624 EST. PATIENT, LEVEL IV Diagnosis: Low back pain[ICD10: M54.5] Diagnosis: Pain in thoracic spine[ICD10: M54.6] Diagnosis: Muscle spasm of back[ICD10: M62.830] Shelly Galvez MD, [facility] CPT- 4: 13403 05/01/2018 93743 EST. PATIENT, LEVEL IV Diagnosis: Low back pain[ICD10: M54.5] Diagnosis: Pain in thoracic spine[ICD10: M54.6] Diagnosis: Muscle spasm of back[ICD10: M62.830] Shelly Galvez MD, [facility] CPT- 4: 94964 03/24/2018 OFFICE VISIT, NEW - LEVEL 4 Diagnosis: Low back pain[ICD10: M54.5] Diagnosis: Pain in thoracic spine[ICD10: M54.6] Diagnosis: Abnormal findings on diagnostic imaging of other specified body structures[ICD10: R93.8] Diagnosis: Muscle spasm of back[ICD10: M62.830] Shelly Galvez MD, [facility] CPT- 4: 97866 11/18/2017 Plan of Care Planned Activity Notes [...] practice. 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 07/03/2018 Appointment: Shel[facility] Car[facility]el[facility] [phone] [facility] [place] [place] (15 min) Moderate 07/03/2018 Patient Education: Patient Medication Summary Completed 07/03/2018 Patient Education: Back Pain Completed 07/03/2018 Patient Education: .Cervicalgia Neck Pain Completed 07/03/2018 Appointment: Shelly Carney WPtel: [phone] [facility] [place] [place] (15 min) Moderate 06/30/2018 Care Plan: Referral Order SNOMED-CT : [id number] Pending 06/09/2018 Visit Plan: Chronic Back pain [...] disease process. 06/05/2018 Appointment: Shelly Carney WPtel: [phone] [facility] [place] (15 min) Moderate 06/05/2018 Patient Education: [...] practice. 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 Trigger Points - Injected trigger points today, pt given post-injection instructions, signs and symptoms for which to call the office. Pt to use heat to the muscles today, and take an anti-inflammatory today unless otherwise contraindicated by renal function or other disease process. 05/01/2018 Appointment: Shelly Carney WPtel: [phone] [facility] [place] (15 min) Moderate 05/01/2018 Patient Education: [...] practice. 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 03/24/2018 Appointment: Shelly Carney WPtel: [phone] [facility] (30 min) Complex 03/24/2018 Patient Education: Patient Medication Summary Completed 03/24/2018 Referral: Cedric [facility]: [address] [facility] [address] [place], [place] [id number] Referral Initiated 12/02/2017 Care Plan: Referral Order SNOMED-CT : [id number] Pending 11/28/2017 Visit Plan: back pain- the [...] referral. 11/18/2017 Appointment: Shelly Carney WPtel: [phone] [facility] New Patient 11/18/2017 Patient Education: Patient Medication Summary Completed 11/18/2017 Referral: Sudha [place] Referral Initiated Referral: Cedric [facility]: [address] [facility] [address] [id number] [place] Referral Initiated Instructions Comment . Chronic [...] practice. 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 . [...] practice. 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 . [...] practice. 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 Trigger [...]
--- OUTSIDE RECORDS SUMMARY | 2019-01-14 10:56 | XMS REPORT | CCD ---
Author Author Shelly Carney Organization [facility] Address [address] [place] [address] Phone Care Team Providers Care Melt House Supervisor Name Role Phone PP Unavailable CCM Unavailable Summary Purpose Interface Exchange Insurance Providers Payer name Policy type / Coverage type Covered alliance party ID Effective Begin Date Effective End Date [facility] Medicaid [id number] Unknown Family history Father Diagnosis Age At Onset Diabetes mellitus Type 2 Unknown Hyperlipidemia Unknown Brother Diagnosis Age At Onset Diabetes mellitus Type 2 Unknown Social History Social History Element Codes Description Effective Dates Marital status Unknown Single 11/18/2017 Number of children Unknown 2 11/18/[address]: 37084629 Current every day smoker 11/18/2017 Number of years using tobacco Unknown 10 - 20 11/18/2017 Number of cigarettes/day Unknown 10 (Half a pack) 11/18/[address]: 189460 Currently drinks alcohol 11/18/2017 Frequency of drinks SNOMED CT: 191606840 1- 4 drinks per week 11/18/2017 Allergies, [...] Start Date Stop Date Status Fill Instructions Duexis 800 mg-26.6 mg tablet RxNorm: 7656442 1 Tablet(s) PO TID as needed 07/08/2018 08/06/2018 Active prednisone 20 mg tablet RxNorm: 086944 1 Tablet(s) PO UD 07/08/2018 07/12/2018 Active 40,40,20,20,10,10, baclofen 10 mg tablet RxNorm: 427774 1 Tablet(s) PO TID as needed muscle spasms 07/08/2018 07/17/2018 Active prednisone 20 mg tablet RxNorm: 843664 2 Tablet(s) PO daily 07/03/2018 07/07/2018 Inactive baclofen 10 mg tablet RxNorm: 903626 1 Tablet(s) PO TID 07/03/2018 07/07/2018 Inactive Lortab 5 mg-325 mg tablet RxNorm: 1362655 1 Tablet(s) PO Q6 as needed ok'd to fill 1 x 06/20/2018 07/19/2018 Active Kenalog 40 mg/mL suspension for injection RxNorm: 3069713 1 Milliliter(s) Inj 06/05/2018 06/05/2018 Inactive cyclobenzaprine 5 mg tablet RxNorm: 426520 1 Tablet(s) PO TID as needed muscle spasms 06/03/2018 No Stop Date Active Lortab 5 mg-325 mg tablet RxNorm: 0710701 1 Tablet(s) PO Q6 as needed ok'd to fill 1 x 05/08/2018 06/06/2018 Inactive cyclobenzaprine 5 mg tablet RxNorm: 894967 1 Tablet(s) PO TID as needed muscle spasms 05/02/2018 06/02/2018 Inactive Lortab 5 mg-325 mg tablet RxNorm: 8229195 1 Tablet(s) PO Q6 04/24/2018 05/07/2018 Inactive gabapentin 300 mg capsule RxNorm: 446287 1 Capsule(s) PO TID 04/18/2018 08/15/2018 Active gabapentin 300 mg capsule RxNorm: 090479 1 Capsule(s) PO TID 02/14/2018 04/17/2018 Inactive gabapentin 300 mg capsule RxNorm: 270090 1 Capsule(s) PO TID 01/14/2018 02/13/2018 Inactive gabapentin 300 mg capsule RxNorm: 725536 1 Capsule(s) PO TID 12/04/2017 01/02/2018 Inactive Zorvolex 35 mg capsule RxNorm: 0571783 1 Capsule(s) PO TID as needed for pain 11/25/2017 12/24/2017 Inactive Zorvolex 35 mg capsule RxNorm: 8891505 1 Capsule(s) PO TID as needed for pain 11/21/2017 11/24/2017 Inactive Zorvolex 35 mg capsule RxNorm: 7068733 1 Capsule(s) PO TID as needed for pain 11/21/2017 11/20/2017 Inactive cyclobenzaprine 5 mg tablet RxNorm: 566272 1 Tablet(s) PO TID as needed muscle spasms 11/18/2017 05/01/2018 Inactive gabapentin 300 mg capsule RxNorm: 701241 1 Capsule(s) PO BID No Start Date 12/03/2017 Inactive Medication Administered Medication Codes Instructions Start Date Status Kenalog 40 mg/mL suspension for injection RxNorm: 2364206 1Milliliter 06/05/2018 No longer Active Immunizations No [...] Date INJ TRIGGER POINT 08/06 MUSCL CPT-4: 12589 06/05/2018 TRIAMCINOLONE ACET INJ NOS CPT-4: J3301 06/05/2018 TRIAMCINOLONE ACET INJ NOS CPT-4: J3301 05/01/2018 INJ TRIGGER POINT 1/2 MUSCL CPT-4: 46308 05/01/2018 Vital Signs Date Vital 07/03/2018 Blood Pressure 1: 130/82 Code: 8480-6 BMI: 28.5 Code: 32135-0 Heart Rate 1: 92 bpm Height: 5'7" SpO2: 98% Weight: 182 lbs 06/05/2018 Blood Pressure 1: 140/68 Code: 8480-6 BMI: 28.5 Code: 79236-3 Heart Rate 1: 97 bpm Height: 5'7" SpO2: 98% Weight: 182 lbs 05/01/2018 Blood Pressure 1: 124/72 Code: 8480-6 BMI: 27.1 Code: 36711-0 Heart Rate 1: 86 bpm Height: 5'7" SpO2: 97% Weight: 173 lbs 03/24/2018 Blood Pressure 1: 136/62 Code: 8480-6 BMI: 27.4 Code: 09409-1 Heart Rate 1: 96 bpm Height: 5'7" SpO2: 98% Weight: 175 lbs 11/18/2017 Blood Pressure 1: 152/80 Code: 8480-6 BMI: 27.6 Code: 61665-7 Heart Rate 1: 92 bpm Height: 5'7" [...] M62.830] Diagnosis: Cervicalgia[ICD10: M54.2] Shelly Galvez MD, [facility] CPT-4: 51049 07/03/2018 27490 EST. PATIENT, LEVEL III Diagnosis: Low back pain[ICD10: M54.5] Diagnosis: Pain in thoracic spine[ICD10: M54.6] Diagnosis: Muscle spasm of back[ICD10: M62.830] [facility] CPT- 4: 20449 06/05/2018 20557 EST. PATIENT, LEVEL IV Diagnosis: Low back pain[ICD10: M54.5] Diagnosis: Pain in thoracic spine[ICD10: M54.6] Diagnosis: Muscle spasm of back[ICD10: M62.830] Shelly Galvez MD, [facility] CPT- 4: 11921 05/01/2018 13909 EST. PATIENT, LEVEL IV Diagnosis: Low back pain[ICD10: M54.5] Diagnosis: Pain in thoracic spine[ICD10: M54.6] Diagnosis: Muscle spasm of back[ICD10: M62.830] [facility] CPT- 4: 36766 03/24/2018 OFFICE VISIT, NEW - LEVEL 4 Diagnosis: Low back pain[ICD10: M54.5] Diagnosis: Pain in thoracic spine[ICD10: M54.6] Diagnosis: Abnormal findings on diagnostic imaging of other specified body structures[ICD10: R93.8] Diagnosis: Muscle spasm of back[ICD10: M62.830] [facility] CPT- 4: 29082 11/18/2017 Plan of Care Planned Activity Notes [...] practice. 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 07/03/2018 Appointment: Shelly Carney WPtel: [facility] [place] (15 min) Moderate 07/03/2018 Patient Education: Patient Medication Summary Completed 07/03/2018 Patient Education: Back Pain Completed 07/03/2018 Patient Education: .Cervicalgia Neck Pain Completed 07/03/2018 Appointment: Shelly Carney WPtel: [phone] [facility] [place] (15 min) Moderate 06/30/2018 Care Plan: Referral Order SNOMED-CT : 079726724 Pending 06/09/2018 Visit Plan: Chronic Back pain [...] process. 06/05/2018 Appointment: Shelly Carney WPtel: [phone] [facility] [place] (15 min) Moderate 06/05/2018 Patient Education: Patient [...] practice. 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 Trigger [...] practice. 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 03/24/2018 Appointment: Shelly Carney WPtel: [facility] (30 min) Complex 03/24/2018 Patient Education: Patient Medication Summary Completed 03/24/2018 Referral: [place]Ptel: [phone] Referral Initiated 12/02/2017 Care Plan: Referral Order SNOMED-CT : 441947229 Pending 11/28/2017 Visit Plan: back pain- the [...] a referral. 11/18/2017 Appointment: Shelly Carney WPtel: [address] [place], [place] [phone] New Patient 11/18/2017 Patient Education: Patient Medication Summary Completed 11/18/2017 Referral: Sudha Ruby Referral Initiated Referral: [place] WPtel: [phone] Referral Initiated Instructions Comment . Chronic Back [...] practice. 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 . [...] practice. 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 . [...] practice. 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 Trigger [...]
--- OUTSIDE RECORDS SUMMARY | 2019-01-14 10:56 | XMS REPORT | CCD ---
Author Author Shelly Carney Organization [facility] Address [address] [place] [address] Phone Care Team Providers Care Data Security Consultant Name Role Phone PP Unavailable CCM Unavailable Summary Purpose Interface Exchange Insurance Providers Payer name Policy type / Coverage type Covered green party ID Effective Begin Date Effective End Date [facility] Medicaid [id number] Unknown Family history Father Diagnosis Age At Onset Diabetes mellitus Type 2 Unknown Hyperlipidemia Unknown Brother Diagnosis Age At Onset Diabetes mellitus Type 2 Unknown Social History Social History Element Codes Description Effective Dates Marital status Unknown Single 11/18/2017 Number of children Unknown 2 11/18/[address]: 77369265 Current every day smoker 11/18/2017 Number of years using tobacco Unknown 10 - 20 11/18/2017 Number of cigarettes/day Unknown 10 (Half a pack) 11/18/[address]: 000079 Currently drinks alcohol 11/18/2017 Frequency of drinks SNOMED CT: 419633392 1- 4 drinks per week 11/18/2017 Allergies, [...] Fill Instructions ibuprofen 800 mg tablet RxNorm: 052213 1 Tablet(s) PO TID as needed 07/11/2018 11/07/2018 Active ibuprofen 800 mg tablet RxNorm: 058972 1 Tablet(s) PO TID as needed 07/11/2018 07/10/2018 Inactive Duexis 800 mg-26.6 mg tablet RxNorm: 0717485 1 Tablet(s) PO TID as needed 07/08/2018 08/06/2018 Active prednisone 20 mg tablet RxNorm: 430822 1 Tablet(s) PO UD 07/08/2018 07/12/2018 Active 40,40,20,20,10,10, baclofen 10 mg tablet RxNorm: 466345 1 Tablet(s) PO TID as needed muscle spasms 07/08/2018 07/17/2018 Active prednisone 20 mg tablet RxNorm: 398527 2 Tablet(s) PO daily 07/03/2018 07/07/2018 Inactive baclofen 10 mg tablet RxNorm: 531753 1 Tablet(s) PO TID 07/03/2018 07/07/2018 Inactive Lortab 5 mg-325 mg tablet RxNorm: 5335423 1 Tablet(s) PO Q6 as needed ok'd to fill 1 x 06/20/2018 07/19/2018 Active Kenalog 40 mg/mL suspension for injection RxNorm: 3313065 1 Milliliter(s) Inj 06/05/2018 06/05/2018 Inactive cyclobenzaprine 5 mg tablet RxNorm: 970022 1 Tablet(s) PO TID as needed muscle spasms 06/03/2018 No Stop Date Active Lortab 5 mg-325 mg tablet RxNorm: 9413776 1 Tablet(s) PO Q6 as needed ok'd to fill 1 x 05/08/2018 06/06/2018 Inactive cyclobenzaprine 5 mg tablet RxNorm: 015628 1 Tablet(s) PO TID as needed muscle spasms 05/02/2018 06/02/2018 Inactive Lortab 5 mg-325 mg tablet RxNorm: 0173979 1 Tablet(s) PO Q6 04/24/2018 05/07/2018 Inactive gabapentin 300 mg capsule RxNorm: 051237 1 Capsule(s) PO TID 04/18/2018 08/15/2018 Active gabapentin 300 mg capsule RxNorm: 293915 1 Capsule(s) PO TID 02/14/2018 04/17/2018 Inactive gabapentin 300 mg capsule RxNorm: 559347 1 Capsule(s) PO TID 01/14/2018 02/13/2018 Inactive gabapentin 300 mg capsule RxNorm: 671312 1 Capsule(s) PO TID 12/04/2017 01/02/2018 Inactive Zorvolex 35 mg capsule RxNorm: 2736277 1 Capsule(s) PO TID as needed for pain 11/25/2017 12/24/2017 Inactive Zorvolex 35 mg capsule RxNorm: 8560517 1 Capsule(s) PO TID as needed for pain 11/21/2017 11/24/2017 Inactive Zorvolex 35 mg capsule RxNorm: 1796657 1 Capsule(s) PO TID as needed for pain 11/21/2017 11/20/2017 Inactive cyclobenzaprine 5 mg tablet RxNorm: 963840 1 Tablet(s) PO TID as needed muscle spasms 11/18/2017 05/01/2018 Inactive gabapentin 300 mg capsule RxNorm: 315709 1 Capsule(s) PO BID No Start Date 12/03/2017 Inactive Medication Administered Medication Codes Instructions Start Date Status Kenalog 40 mg/mL suspension for injection RxNorm: 1190462 1Milliliter 06/05/2018 No longer Active Immunizations No Immunization data Assessments Condition Codes Effective Dates Pain in thoracic spine ICD-10: M54.6 ICD-9: 724.1 07/03/2018 Cervicalgia ICD-10: M54.2 ICD-9: 723.1 07/03/2018 Low back pain ICD-10: M54.5 ICD-9: 724.2 07/03/2018 Muscle spasm of back ICD-10: M62.830 [...] affect 11/18/2017 None Full Exam - General 1995 Psychiatric appearance Overall: well-groomed, good eye contact 11/18/2017 None Procedures Procedure Codes Date INJ TRIGGER POINT 12 MUSCL CPT-4: 70370 06/05/2018 TRIAMCINOLONE ACET INJ NOS CPT-4: J3301 06/05/2018 TRIAMCINOLONE ACET INJ NOS CPT-4: J3301 05/01/2018 INJ TRIGGER POINT 08/06 MUSCL CPT-4: 30967 05/01/2018 Vital Signs Date Vital 07/03/2018 Blood Pressure 1: 130/82 Code: 8480-6 BMI: 28.5 Code: 46540-7 Heart Rate 1: 92 bpm Height: 5'7" SpO2: 98% Weight: 182 lbs 06/05/2018 Blood Pressure 1: 140/68 Code: 8480-6 BMI: 28.5 Code: 60275-4 Heart Rate 1: 97 bpm Height: 5'7" SpO2: 98% Weight: 182 lbs 05/01/2018 Blood Pressure 1: 124/72 Code: 8480-6 BMI: 27.1 Code: 87160-9 Heart Rate 1: 86 bpm Height: 5'7" SpO2: 97% Weight: 173 lbs 03/24/2018 Blood Pressure 1: 136/62 Code: 8480-6 BMI: 27.4 Code: 47584-6 Heart Rate 1: 96 bpm Height: 5'7" SpO2: 98% Weight: 175 lbs 11/18/2017 Blood Pressure 1: 152/80 Code: 8480-6 BMI: 27.6 Code: 02199-4 Heart Rate 1: 92 bpm Height: 5'7" [...] data Encounters Encounter Performer Location Codes Date 11986 EST. PATIENT, LEVEL III Diagnosis: Low back pain[ICD10: M54.5] Diagnosis: Pain in thoracic spine[ICD10: M54.6] Diagnosis: Muscle spasm of back[ICD10: M62.830] Diagnosis: Cervicalgia[ICD10: M54.2] [facility] CPT-4: 65506 07/03/2018 92252 EST. PATIENT, LEVEL III Diagnosis: Low back pain[ICD10: M54.5] Diagnosis: Pain in thoracic spine[ICD10: M54.6] Diagnosis: Muscle spasm of back[ICD10: M62.830] Shelly Galvez MD, [facility] CPT- 4: 48871 06/05/2018 96275 EST. PATIENT, LEVEL IV Diagnosis: Low back pain[ICD10: M54.5] Diagnosis: Pain in thoracic spine[ICD10: M54.6] Diagnosis: Muscle spasm of back[ICD10: M62.830] [facility] CPT- 4: 48447 05/01/2018 61119 EST. PATIENT, LEVEL IV Diagnosis: Low back pain[ICD10: M54.5] Diagnosis: Pain in thoracic spine[ICD10: M54.6] Diagnosis: Muscle spasm of back[ICD10: M62.830] [facility] CPT- 4: 85222 03/24/2018 OFFICE VISIT, NEW - LEVEL 4 Diagnosis: Low back pain[ICD10: M54.5] Diagnosis: Pain in thoracic spine[ICD10: M54.6] Diagnosis: Abnormal findings on diagnostic imaging of other specified body structures[ICD10: R93.8] Diagnosis: Muscle spasm of back[ICD10: M62.830] [facility] CPT- 4: 92283 11/18/2017 Plan of Care Planned Activity Notes [...] Pt is to continue with his clinical documentation specialist for his ongoing back pain. 07/03/2018 Appointment: Shelly Carney WPtel[facility] [place] (15 min) Moderate 07/03/2018 Patient Education: Patient Medication Summary Completed 07/03/2018 Patient Education: Back Pain Completed 07/03/2018 Patient Education: .Cervicalgia Neck Pain Completed 07/03/2018 Appointment: Shel[facility] Carney [facility]Ptel: [phone] [facility] [place] (15 min) Moderate 06/30/2018 Care Plan: Referral Order SNOMED-CT : 086404579 Pending 06/09/2018 Visit Plan: Chronic Back pain [...] process. 06/05/2018 Appointment: Shelly Carney WPtel: [phone] [facility] (15 min) Moderate 06/05/2018 Patient Education: Patient [...] Pt is to continue with his clinical documentation specialist for his ongoing back pain. Trigger Points - Injected trigger points today, pt given post-injection instructions, signs and symptoms for which to call the office. Pt to use heat to the muscles today, and take an anti-inflammatory today unless otherwise contraindicated by renal function or other disease process. 05/01/2018 Appointment: Shelly Carney WPtel: [phone] [facility] [place] (15 min) Moderate 05/01/2018 Patient [...] Pt is to continue with his clinical documentation specialist for his ongoing back pain. 03/24/2018 Appointment: Shelly Carney WPtel: [facility]5 [facility] (30 min) Complex 03/24/2018 Patient Education: Patient Medication Summary Completed 03/24/2018 Referral: [facility] [place] WPtel: [phone] [facility] 1 [id number] Referral Initiated 12/02/2017 Care Plan: Referral Order SNOMED-CT : [id number] Pending 11/28/2017 Visit Plan: back pain- the [...] Shelly Carney WPtel: [facility]5 [facility] New Patient 11/18/2017 Patient Education: Patient Medication Summary Completed 11/18/2017 Referral: Sudha Ruby Referral Initiated Referral: Ortho, [place] WPtel: [phone] [facility] 1 [id number] Referral Initiated Instructions Comment . Chronic Back [...] Pt is to continue with his clinical documentation specialist for his ongoing back pain. . [...] Pt is to continue with his clinical documentation specialist for his ongoing back pain. . [...] Pt is to continue with his clinical documentation specialist for his ongoing back pain. Trigger [...]
--- OUTSIDE RECORDS SUMMARY | 2019-01-14 10:57 | XMS REPORT | CCD ---
Author Author Shelly Carney Organization [facility] Address [address] [place] [address] Phone Care Team Providers Care Bridge Builder Name Role Phone PP Unavailable CCM Unavailable Summary Purpose Interface Exchange Insurance Providers Payer name Policy type / Coverage type Covered alliance party ID Effective Begin Date Effective End Date [facility] Medicaid [id number] Unknown Family history Father Diagnosis Age At Onset Diabetes mellitus Type 2 Unknown Hyperlipidemia Unknown Brother Diagnosis Age At Onset Diabetes mellitus Type 2 Unknown Social History Social History Element Codes Description Effective Dates Marital status Unknown Single 11/18/2017 Number of children Unknown 2 11/18/[address]: 92822733 Current every day smoker 11/18/2017 Number of years using tobacco Unknown 10 - 20 11/18/2017 Number of cigarettes/day Unknown 10 (Half a pack) 11/18/[address]: 656392 Currently drinks alcohol 11/18/2017 Frequency of drinks SNOMED CT: 603836727 1- 4 drinks per week 11/18/2017 Allergies, [...] Instructions Duexis 800 mg-26.6 mg tablet RxNorm: 1692096 1 Tablet(s) PO TID as needed 07/08/2018 08/06/2018 Active prednisone 20 mg tablet RxNorm: 178642 1 Tablet(s) PO UD 07/08/2018 07/12/2018 Active 40,40,20,20,10,10, baclofen 10 mg tablet RxNorm: 013761 1 Tablet(s) PO TID as needed muscle spasms 07/08/2018 07/17/2018 Active prednisone 20 mg tablet RxNorm: 820205 2 Tablet(s) PO daily 07/03/2018 07/07/2018 Inactive baclofen 10 mg tablet RxNorm: 189894 1 Tablet(s) PO TID 07/03/2018 07/07/2018 Inactive Lortab 5 mg-325 mg tablet RxNorm: 2564963 1 Tablet(s) PO Q6 as needed ok'd to fill 1 x 06/20/2018 07/19/2018 Active Kenalog 40 mg/mL suspension for injection RxNorm: 9512530 1 Milliliter(s) Inj 06/05/2018 06/05/2018 Inactive cyclobenzaprine 5 mg tablet RxNorm: 652924 1 Tablet(s) PO TID as needed muscle spasms 06/03/2018 No Stop Date Active Lortab 5 mg-325 mg tablet RxNorm: 8222244 1 Tablet(s) PO Q6 as needed ok'd to fill 1 x 05/08/2018 06/06/2018 Inactive cyclobenzaprine 5 mg tablet RxNorm: 576481 1 Tablet(s) PO TID as needed muscle spasms 05/02/2018 06/02/2018 Inactive Lortab 5 mg-325 mg tablet RxNorm: 0737753 1 Tablet(s) PO Q6 04/24/2018 05/07/2018 Inactive gabapentin 300 mg capsule RxNorm: 297824 1 Capsule(s) PO TID 04/18/2018 08/15/2018 Active gabapentin 300 mg capsule RxNorm: 423680 1 Capsule(s) PO TID 02/14/2018 04/17/2018 Inactive gabapentin 300 mg capsule RxNorm: 972098 1 Capsule(s) PO TID 01/14/2018 02/13/2018 Inactive gabapentin 300 mg capsule RxNorm: 033619 1 Capsule(s) PO TID 12/04/2017 01/02/2018 Inactive Zorvolex 35 mg capsule RxNorm: 1304144 1 Capsule(s) PO TID as needed for pain 11/25/2017 12/24/2017 Inactive Zorvolex 35 mg capsule RxNorm: 0997571 1 Capsule(s) PO TID as needed for pain 11/21/2017 11/24/2017 Inactive Zorvolex 35 mg capsule RxNorm: 1155659 1 Capsule(s) PO TID as needed for pain 11/21/2017 11/20/2017 Inactive cyclobenzaprine 5 mg tablet RxNorm: 343581 1 Tablet(s) PO TID as needed muscle spasms 11/18/2017 05/01/2018 Inactive gabapentin 300 mg capsule RxNorm: 133548 1 Capsule(s) PO BID No Start Date 12/03/2017 Inactive Medication Administered Medication Codes Instructions Start Date Status Kenalog 40 mg/mL suspension for injection RxNorm: 0482554 1Milliliter 06/05/2018 No longer Active Immunizations No [...] Date INJ TRIGGER POINT 08/06 MUSCL CPT-4: 49364 06/05/2018 TRIAMCINOLONE ACET INJ NOS CPT-4: J3301 06/05/2018 TRIAMCINOLONE ACET INJ NOS CPT-4: J3301 05/01/2018 INJ TRIGGER POINT 1/2 MUSCL CPT-4: 19740 05/01/2018 Vital Signs Date Vital 07/03/2018 Blood Pressure 1: 130/82 Code: 8480-6 BMI: 28.5 Code: 57729-8 Heart Rate 1: 92 bpm Height: 5'7" SpO2: 98% Weight: 182 lbs 06/05/2018 Blood Pressure 1: 140/68 Code: 8480-6 BMI: 28.5 Code: 38300-0 Heart Rate 1: 97 bpm Height: 5'7" SpO2: 98% Weight: 182 lbs 05/01/2018 Blood Pressure 1: 124/72 Code: 8480-6 BMI: 27.1 Code: 05185-8 Heart Rate 1: 86 bpm Height: 5'7" SpO2: 97% Weight: 173 lbs 03/24/2018 Blood Pressure 1: 136/62 Code: 8480-6 BMI: 27.4 Code: 54992-7 Heart Rate 1: 96 bpm Height: 5'7" SpO2: 98% Weight: 175 lbs 11/18/2017 Blood Pressure 1: 152/80 Code: 8480-6 BMI: 27.6 Code: 35183-6 Heart Rate 1: 92 bpm Height: 5'7" [...] M62.830] Diagnosis: Cervicalgia[ICD10: M54.2] Shelly Galvez MD, [facility] CPT-4: 13537 07/03/2018 42621 EST. PATIENT, LEVEL III Diagnosis: Low back pain[ICD10: M54.5] Diagnosis: Pain in thoracic spine[ICD10: M54.6] Diagnosis: Muscle spasm of back[ICD10: M62.830] [facility] CPT- 4: 07475 06/05/2018 04907 EST. PATIENT, LEVEL IV Diagnosis: Low back pain[ICD10: M54.5] Diagnosis: Pain in thoracic spine[ICD10: M54.6] Diagnosis: Muscle spasm of back[ICD10: M62.830] Shelly Galvez MD, [facility] CPT- 4: 84084 05/01/2018 97172 EST. PATIENT, LEVEL IV Diagnosis: Low back pain[ICD10: M54.5] Diagnosis: Pain in thoracic spine[ICD10: M54.6] Diagnosis: Muscle spasm of back[ICD10: M62.830] [facility] CPT- 4: 40350 03/24/2018 OFFICE VISIT, NEW - LEVEL 4 Diagnosis: Low back pain[ICD10: M54.5] Diagnosis: Pain in thoracic spine[ICD10: M54.6] Diagnosis: Abnormal findings on diagnostic imaging of other specified body structures[ICD10: R93.8] Diagnosis: Muscle spasm of back[ICD10: M62.830] [facility] CPT- 4: 90272 11/18/2017 Plan of Care Planned Activity Notes [...] practice. Pt is to continue with his youth care specialist for his ongoing back pain. 07/03/2018 Appointment: Shelly Carney WPtel[facility] [place] (15 min) Moderate 07/03/2018 Patient Education: Patient Medication Summary Completed 07/03/2018 Patient Education: Back Pain Completed 07/03/2018 Patient Education: .Cervicalgia Neck Pain Completed 07/03/2018 Appointment: Shelly Carney [facility]Ptel[facility] [phone] [facility] [place] (15 min) Moderate 06/30/2018 Care Plan: Referral Order SNOMED-CT : 553712970 Pending 06/09/2018 Visit Plan: Chronic Back pain [...] process. 06/05/2018 Appointment: Shelly Carney [facility]Ptel[facility] [phone] [facility] (15 min) Moderate 06/05/2018 Patient Education: Patient [...] practice. Pt is to continue with his youth care specialist for his ongoing back pain. Trigger Points - Injected trigger points today, pt given post-injection instructions, signs and symptoms for which to call the office. Pt to use heat to the muscles today, and take an anti-inflammatory today unless otherwise contraindicated by renal function or other disease process. 05/01/2018 Appointment: Shelly Carney [facility]Ptel[facility] [phone] [facility] [place] (15 min) Moderate 05/01/2018 Patient [...] practice. Pt is to continue with his youth care specialist for his ongoing back pain. 03/24/2018 Appointment: Shelly Carney WPtel: [facility] (30 min) Complex 03/24/2018 Patient Education: Patient Medication Summary Completed 03/24/2018 Referral: Bruce Steele[place] WPtel: [phone] Referral Initiated 12/02/2017 Care Plan: Referral Order SNOMED-CT : 147004001 Pending 11/28/2017 Visit Plan: back pain- the [...] a referral. 11/18/2017 Appointment: Shelly Carney WPtel: [address] [place], [place] [phone] New Patient 11/18/2017 Patient Education: Patient Medication Summary Completed 11/18/2017 Referral: Sudha Ruby Referral Initiated Referral: Bruce [place] WPtel: [phone] Referral Initiated Instructions Comment . Chronic [...] practice. Pt is to continue with his youth care specialist for his ongoing back pain. . [...] practice. Pt is to continue with his youth care specialist for his ongoing back pain. . [...] practice. Pt is to continue with his youth care specialist for his ongoing back pain. Trigger [...]
--- OUTSIDE RECORDS SUMMARY | 2019-01-14 10:57 | XMS REPORT | CCD ---
Author Author Shelly Carney Organization [facility] Address [address] [place] [address] Phone Care Team Providers Care Tray Line Supervisor Name Role Phone PP Unavailable CCM Unavailable Summary Purpose Interface Exchange Insurance Providers Payer name Policy type / Coverage type Covered republican ID Effective Begin Date Effective End Date [facility] Medicaid [id number] Unknown Family history Father Diagnosis Age At Onset Diabetes mellitus Type 2 Unknown Hyperlipidemia Unknown Brother Diagnosis Age At Onset Diabetes mellitus Type 2 Unknown Social History Social History Element Codes Description Effective Dates Marital status Unknown Single 11/18/2017 Number of children Unknown 2 11/18/[address]: 20001614 Current every day smoker 11/18/2017 Number of years using tobacco Unknown 10 - 20 11/18/2017 Number of cigarettes/day Unknown 10 (Half a pack) 11/18/[address]: 477130 Currently drinks alcohol 11/18/2017 Frequency of drinks SNOMED CT: 996426013 1- 4 drinks per week 11/18/2017 Allergies, [...] Instructions Duexis 800 mg-26.6 mg tablet RxNorm: 8127106 1 Tablet(s) PO TID as needed 07/08/2018 08/06/2018 Active prednisone 20 mg tablet RxNorm: 881868 2 Tablet(s) PO daily 07/03/2018 07/07/2018 Inactive baclofen 10 mg tablet RxNorm: 668773 1 Tablet(s) PO TID 07/03/2018 07/07/2018 Inactive Lortab 5 mg-325 mg tablet RxNorm: 4275414 1 Tablet(s) PO Q6 as needed ok'd to fill 1 x 06/20/2018 07/19/2018 Active Kenalog 40 mg/mL suspension for injection RxNorm: 3002077 1 Milliliter(s) Inj 06/05/2018 06/05/2018 Inactive cyclobenzaprine 5 mg tablet RxNorm: 717747 1 Tablet(s) PO TID as needed muscle spasms 06/03/2018 No Stop Date Active Lortab 5 mg-325 mg tablet RxNorm: 1161013 1 Tablet(s) PO Q6 as needed ok'd to fill 1 x 05/08/2018 06/06/2018 Inactive cyclobenzaprine 5 mg tablet RxNorm: 628987 1 Tablet(s) PO TID as needed muscle spasms 05/02/2018 06/02/2018 Inactive Lortab 5 mg-325 mg tablet RxNorm: 2502052 1 Tablet(s) PO Q6 04/24/2018 05/07/2018 Inactive gabapentin 300 mg capsule RxNorm: 822190 1 Capsule(s) PO TID 04/18/2018 08/15/2018 Active gabapentin 300 mg capsule RxNorm: 008518 1 Capsule(s) PO TID 02/14/2018 04/17/2018 Inactive gabapentin 300 mg capsule RxNorm: 935114 1 Capsule(s) PO TID 01/14/2018 02/13/2018 Inactive gabapentin 300 mg capsule RxNorm: 572242 1 Capsule(s) PO TID 12/04/2017 01/02/2018 Inactive Zorvolex 35 mg capsule RxNorm: 0955586 1 Capsule(s) PO TID as needed for pain 11/25/2017 12/24/2017 Inactive Zorvolex 35 mg capsule RxNorm: 6381326 1 Capsule(s) PO TID as needed for pain 11/21/2017 11/24/2017 Inactive Zorvolex 35 mg capsule RxNorm: 3212854 1 Capsule(s) PO TID as needed for pain 11/21/2017 11/20/2017 Inactive cyclobenzaprine 5 mg tablet RxNorm: 407494 1 Tablet(s) PO TID as needed muscle spasms 11/18/2017 05/01/2018 Inactive gabapentin 300 mg capsule RxNorm: 838428 1 Capsule(s) PO BID No Start Date 12/03/2017 Inactive Medication Administered Medication Codes Instructions Start Date Status Kenalog 40 mg/mL suspension for injection RxNorm: 3326036 1Milliliter 06/05/2018 No longer Active Immunizations No [...] Procedures Procedure Codes Date INJ TRIGGER POINT 2 MUSCL CPT-4: 79676 06/05/2018 TRIAMCINOLONE ACET INJ NOS CPT-4: J3301 06/05/2018 TRIAMCINOLONE ACET INJ NOS CPT-4: J3301 05/01/2018 INJ TRIGGER POINT 12 MUSCL CPT-4: 54810 05/01/2018 Vital Signs Date Vital 07/03/2018 Blood Pressure 1: 130/82 Code: 8480-6 BMI: 28.5 Code: 56382-1 Heart Rate 1: 92 bpm Height: 5'7" SpO2: 98% Weight: 182 lbs 06/05/2018 Blood Pressure 1: 140/68 Code: 8480-6 BMI: 28.5 Code: 49359-6 Heart Rate 1: 97 bpm Height: 5'7" SpO2: 98% Weight: 182 lbs 05/01/2018 Blood Pressure 1: 124/72 Code: 8480-6 BMI: 27.1 Code: 22094-9 Heart Rate 1: 86 bpm Height: 5'7" SpO2: 97% Weight: 173 lbs 03/24/2018 Blood Pressure 1: 136/62 Code: 8480-6 BMI: 27.4 Code: 12533-8 Heart Rate 1: 96 bpm Height: 5'7" SpO2: 98% Weight: 175 lbs 11/18/2017 Blood Pressure 1: 152/80 Code: 8480-6 BMI: 27.6 Code: 56727-0 Heart Rate 1: 92 bpm Height: 5'7" [...] Diagnosis: Cervicalgia[ICD10: M54.2] Shelly Galvez MD, [facility] CPT-4: 22792 07/03/2018 14946 EST. PATIENT, LEVEL III Diagnosis: Low back pain[ICD10: M54.5] Diagnosis: Pain in thoracic spine[ICD10: M54.6] Diagnosis: Muscle spasm of back[ICD10: M62.830] Shelly Galvez MD, [facility] CPT- 4: 49160 06/05/2018 47343 EST. PATIENT, LEVEL IV Diagnosis: Low back pain[ICD10: M54.5] Diagnosis: Pain in thoracic spine[ICD10: M54.6] Diagnosis: Muscle spasm of back[ICD10: M62.830] Shelly Galvez MD, [facility] CPT- 4: 20941 05/01/2018 56715 EST. PATIENT, LEVEL IV Diagnosis: Low back pain[ICD10: M54.5] Diagnosis: Pain in thoracic spine[ICD10: M54.6] Diagnosis: Muscle spasm of back[ICD10: M62.830] Shelly Galvez MD, [facility] CPT- 4: 13863 03/24/2018 OFFICE VISIT, NEW - LEVEL 4 Diagnosis: Low back pain[ICD10: M54.5] Diagnosis: Pain in thoracic spine[ICD10: M54.6] Diagnosis: Abnormal findings on diagnostic imaging of other specified body structures[ICD10: R93.8] Diagnosis: Muscle spasm of back[ICD10: M62.830] [facility] CPT- 4: 88982 11/18/2017 Plan of Care Planned Activity Notes [...] practice. Pt is to continue with his health informatics specialist for his ongoing back pain. 07/03/2018 Appointment: Shelly Carney WPtel: [phone] [facility] [place] (15 min) Moderate 07/03/2018 Patient Education: Patient Medication Summary Completed 07/03/2018 Patient Education: Back Pain Completed 07/03/2018 Patient Education: .Cervicalgia Neck Pain Completed 07/03/2018 Appointment: [facility]el[facility] [phone] [facility] [place] (15 min) Moderate 06/30/2018 Care Plan: Referral Order SNOMED-CT : 892834719 Pending 06/09/2018 Visit Plan: Chronic Back pain [...] process. 06/05/2018 Appointment: Shelly Carney WPtel: [phone] [facility] [place] (15 min) Moderate 06/05/2018 Patient Education: [...] practice. Pt is to continue with his health informatics specialist for his ongoing back pain. Trigger Points - Injected trigger points today, pt given post-injection instructions, signs and symptoms for which to call the office. Pt to use heat to the muscles today, and take an anti-inflammatory today unless otherwise contraindicated by renal function or other disease process. 05/01/2018 Appointment: Shelly Carney WPtel: [phone] [facility] [place] (15 min) Moderate 05/01/2018 Patient Education: [...] practice. Pt is to continue with his health informatics specialist for his ongoing back pain. 03/24/2018 Appointment: Shelly Carney WPtel: [phone] [facility] [place] (30 min) Complex 03/24/2018 Patient Education: Patient Medication Summary Completed 03/24/2018 Referral: Ortho, [facility] WPtel: [phone] [id number] [place] Referral Initiated 12/02/2017 Care Plan: Referral Order SNOMED-CT : 867702375 Pending 11/28/2017 Visit Plan: back pain- the [...] a referral. 11/18/2017 Appointment: Shelly Carney WPtel: [address] [place], [place] [address] New Patient 11/18/2017 Patient Education: Patient Medication Summary Completed 11/18/2017 Referral: Sudha Ruby Referral Initiated Referral: Bruce SteeleStates WPtel: [address] [facility] 1 [id number] Referral Initiated Instructions Comment . Chronic Back [...] practice. Pt is to continue with his health informatics specialist for his ongoing back pain. . [...] practice. Pt is to continue with his health informatics specialist for his ongoing back pain. . [...] practice. Pt is to continue with his health informatics specialist for his ongoing back pain. Trigger [...]
--- OUTSIDE RECORDS SUMMARY | 2019-01-14 10:58 | XMS REPORT | CCD ---
Author Author Shelly Carney Organization [facility] Address [address] [place] [address] Phone Care Team Providers Care Coal Washer Tender Name Role Phone PP Unavailable CCM Unavailable Summary Purpose Interface Exchange Insurance Providers Payer name Policy type / Coverage type Covered republican ID Effective Begin Date Effective End Date [facility] Medicaid [id number] Unknown Family history Father Diagnosis Age At Onset Diabetes mellitus Type 2 Unknown Hyperlipidemia Unknown Brother Diagnosis Age At Onset Diabetes mellitus Type 2 Unknown Social History Social History Element Codes Description Effective Dates Marital status Unknown Single 11/18/2017 Number of children Unknown 2 11/18/[address]: 39626175 Current every day smoker 11/18/2017 Number of years using tobacco Unknown 10 - 20 11/18/2017 Number of cigarettes/day Unknown 10 (Half a pack) 11/18/[address]: 906790 Currently drinks alcohol 11/18/2017 Frequency of drinks SNOMED CT: 346704450 1- 4 drinks per week 11/18/2017 Allergies, Adverse Reactions, Alerts Substance Reaction Codes Entered Date Inactivated Date Status Iodine RxNorm: 5933 11/18/2017 No Inactive Date Active Penicillin Unknown 11/18/2017 No Inactive Date Active Past Medical History Illness Codes Condition Status Onset Date Resolved Date Low back pain ICD-9: 724.2 ICD-10: M54.5 Active 11/18/2017 Unknown Muscle spasm of back ICD- 9: 724.8 ICD-10: M62.830 Active 11/18/2017 Unknown Pain in thoracic spine ICD-9: 724.1 ICD-10: M54.6 Active 11/18/2017 Unknown Abnormal findings on diagnostic imaging of other specified body structures ICD-9: 793.2 ICD-10: R93.8 Active 11/18/2017 Unknown Problems Condition Codes Effective Dates Condition Status Low back pain ICD-9: 724.2 ICD-10: M54.5 11/18/2017 Active Muscle spasm of back ICD- 9: 724.8 ICD-10: M62.830 11/18/2017 Active Pain in thoracic spine ICD-9: 724.1 ICD-10: M54.6 11/18/2017 Active Abnormal findings on diagnostic imaging of other specified body structures ICD-9: 793.2 ICD-10: R93.8 11/18/2017 Active Medications Medication Codes Instructions Start Date Stop Date Status Fill Instructions Lortab 5 mg-325 mg tablet RxNorm: 7654259 1 Tablet(s) PO Q6 as needed ok'd to fill 1 x 06/20/2018 07/19/2018 Active Kenalog 40 mg/mL suspension for injection RxNorm: 6668855 1 Milliliter(s) Inj 06/05/2018 06/05/2018 Inactive cyclobenzaprine 5 mg tablet RxNorm: 144623 1 Tablet(s) PO TID as needed muscle spasms 06/03/2018 No Stop Date Active Lortab 5 mg-325 mg tablet RxNorm: 0152202 1 Tablet(s) PO Q6 as needed ok'd to fill 1 x 05/08/2018 06/06/2018 Inactive cyclobenzaprine 5 mg tablet RxNorm: 686829 1 Tablet(s) PO TID as needed muscle spasms 05/02/2018 06/02/2018 Inactive Lortab 5 mg-325 mg tablet RxNorm: 0004284 1 Tablet(s) PO Q6 04/24/2018 05/07/2018 Inactive gabapentin 300 mg capsule RxNorm: 043005 1 Capsule(s) PO TID 04/18/2018 08/15/2018 Active gabapentin 300 mg capsule RxNorm: 149282 1 Capsule(s) PO TID 02/14/2018 04/17/2018 Inactive gabapentin 300 mg capsule RxNorm: 405188 1 Capsule(s) PO TID 01/14/2018 02/13/2018 Inactive gabapentin 300 mg capsule RxNorm: 364747 1 Capsule(s) PO TID 12/04/2017 01/02/2018 Inactive Zorvolex 35 mg capsule RxNorm: 6186644 1 Capsule(s) PO TID as needed for pain 11/25/2017 12/24/2017 Inactive Zorvolex 35 mg capsule RxNorm: 0175058 1 Capsule(s) PO TID as needed for pain 11/21/2017 11/24/2017 Inactive Zorvolex 35 mg capsule RxNorm: 4394523 1 Capsule(s) PO TID as needed for pain 11/21/2017 11/20/2017 Inactive cyclobenzaprine 5 mg tablet RxNorm: 926319 1 Tablet(s) PO TID as needed muscle spasms 11/18/2017 05/01/2018 Inactive gabapentin 300 mg capsule RxNorm: 912144 1 Capsule(s) PO BID No Start Date 12/03/2017 Inactive Medication Administered Medication Codes Instructions Start Date Status Kenalog 40 mg/mL suspension for injection RxNorm: 8665514 1Milliliter 06/05/2018 No longer Active Immunizations No Immunization data Assessments Condition Codes Effective Dates Pain in thoracic spine ICD-10: M54.6 ICD-9: 724.1 06/05/2018 Muscle spasm of back ICD-10: M62.830 ICD-9: 724.8 06/05/2018 Low back pain ICD-10: M54.5 ICD-9: 724.2 06/05/2018 Abnormal findings on diagnostic imaging of other specified body structures ICD-10: R93.8 ICD-9: 793.2 11/18/2017 Reason For Visit Reason For Visit Effective Dates Notes low back pain 06/05/2018 back pain 05/01/2018 back pain 03/24/2018 back pain 11/18/2017 Results No Results data Review of Systems System Result Effective Dates Constitutional No recent illness 06/05/2018 Constitutional No [...] Date INJ TRIGGER POINT 12 MUSCL CPT-4: 34051 06/05/2018 TRIAMCINOLONE ACET INJ NOS CPT-4: J3301 06/05/2018 TRIAMCINOLONE ACET INJ NOS CPT-4: J3301 05/01/2018 INJ TRIGGER POINT 1/2 MUSCL CPT-4: 66930 05/01/2018 Vital Signs Date Vital 06/05/2018 Blood Pressure 1: 140/68 Code: 8480-6 BMI: 28.5 Code: 74554-4 Heart Rate 1: 97 bpm Height: 5'7" SpO2: 98% Weight: 182 lbs 05/01/2018 Blood Pressure 1: 124/72 Code: 8480-6 BMI: 27.1 Code: 46608-6 Heart Rate 1: 86 bpm Height: 5'7" SpO2: 97% Weight: 173 lbs 03/24/2018 Blood Pressure 1: 136/62 Code: 8480-6 BMI: 27.4 Code: 44521-5 Heart Rate 1: 96 bpm Height: 5'7" SpO2: 98% Weight: 175 lbs 11/18/2017 Blood Pressure 1: 152/80 Code: 8480-6 BMI: 27.6 Code: 53609-5 Heart Rate 1: 92 bpm Height: 5'7" SpO2: 98% Weight: 176 lbs Functional Status No Functional Status data History of Present Illness Symptom Name Status Result Effective Date Notes low back pain Location lumbar spine 06/05/2018 [...] M62.830] [facility] CPT- 4: 29849 06/05/2018 87214 EST. PATIENT, LEVEL IV Diagnosis: Low back pain[ICD10: M54.5] Diagnosis: Pain in thoracic spine[ICD10: M54.6] Diagnosis: Muscle spasm of back[ICD10: M62.830] [facility] CPT- 4: 07037 05/01/2018 97169 EST. PATIENT, LEVEL IV Diagnosis: Low back pain[ICD10: M54.5] Diagnosis: Pain in thoracic spine[ICD10: M54.6] Diagnosis: Muscle spasm of back[ICD10: M62.830] [facility] CPT- 4: 96956 03/24/2018 OFFICE VISIT, NEW - LEVEL 4 Diagnosis: Low back pain[ICD10: M54.5] Diagnosis: Pain in thoracic spine[ICD10: M54.6] Diagnosis: Abnormal findings on diagnostic imaging of other specified body structures[ICD10: R93.8] Diagnosis: Muscle spasm of back[ICD10: M62.830] [facility] CPT- 4: 95066 11/18/2017 Plan of Care Planned Activity Notes Codes Status Date Care Plan: Referral Order SNOMED-CT : 087469242 Pending 06/09/2018 Visit Plan: Chronic Back pain [...] 06/05/2018 Appointment: Shelly Carney WPtel: [phone] [facility] [place] (15 min) Moderate 06/05/2018 [...] practice. 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 Trigger Points - Injected trigger points today, pt given post-injection instructions, signs and symptoms for which to call the office. Pt to use heat to the muscles today, and take an anti-inflammatory today unless otherwise contraindicated by renal function or other disease process. 05/01/2018 Appointment: Shelly Carney [facility]Ptel[phone] [facility] [place] (15 min) Moderate 05/01/2018 Patient [...] practice. 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 03/24/2018 Appointment: Shelly Carney WPtel: [facility]5 [facility] (30 min) Complex 03/24/2018 Patient Education: Patient Medication Summary Completed 03/24/2018 Referral: Bruce Steele[place] WPtel: [phone] Referral Initiated 12/02/2017 Care Plan: Referral Order SNOMED-CT : 522360689 Pending 11/28/2017 Visit Plan: back pain- the [...] a referral. 11/18/2017 Appointment: Shelly Carney WPtel: [facility]5 [facility] New Patient 11/18/2017 Patient Education: Patient Medication Summary Completed 11/18/2017 Referral: Sudha Ruby Referral Initiated Referral: Bruce [place] WPtel: [phone] [place] [address] [id number] Referral Initiated Instructions Comment . Chronic Back [...] practice. 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 . [...] practice. 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 Trigger [...]
--- OUTSIDE RECORDS SUMMARY | 2019-01-14 10:59 | XMS REPORT | CCD ---
Author Author Shelly Carney Organization [facility] Address [address] [place] [address] Phone Care Team Providers Care Recovery Agent Name Role Phone PP Unavailable CCM Unavailable Summary Purpose Interface Exchange Insurance Providers Payer name Policy type / Coverage type Covered constitution party ID Effective Begin Date Effective End Date [facility] Medicaid [id number] Unknown Family history Father Diagnosis Age At Onset Diabetes mellitus Type 2 Unknown Hyperlipidemia Unknown Brother Diagnosis Age At Onset Diabetes mellitus Type 2 Unknown Social History Social History Element Codes Description Effective Dates Marital status Unknown Single 11/18/2017 Number of children Unknown 2 11/18/[address]: 36608725 Current every day smoker 11/18/2017 Number of years using tobacco Unknown 10 - 20 11/18/2017 Number of cigarettes/day Unknown 10 (Half a pack) 11/18/[address]: 663087 Currently drinks alcohol 11/18/2017 Frequency of drinks SNOMED CT: 083246785 1- 4 drinks per week 11/18/2017 Allergies, [...] Start Date Stop Date Status Fill Instructions Kenalog 40 mg/mL suspension for injection RxNorm: 6313374 1 Milliliter(s) Inj 06/05/2018 06/05/2018 Inactive cyclobenzaprine 5 mg tablet RxNorm: 794964 1 Tablet(s) PO TID as needed muscle spasms 06/03/2018 No Stop Date Active Lortab 5 mg-325 mg tablet RxNorm: 6074687 1 Tablet(s) PO Q6 as needed ok'd to fill 1 x 05/08/2018 06/06/2018 Inactive cyclobenzaprine 5 mg tablet RxNorm: 784064 1 Tablet(s) PO TID as needed muscle spasms 05/02/2018 06/02/2018 Inactive Lortab 5 mg-325 mg tablet RxNorm: 9849158 1 Tablet(s) PO Q6 04/24/2018 05/07/2018 Inactive gabapentin 300 mg capsule RxNorm: 596895 1 Capsule(s) PO TID 04/18/2018 08/15/2018 Active gabapentin 300 mg capsule RxNorm: 061867 1 Capsule(s) PO TID 02/14/2018 04/17/2018 Inactive gabapentin 300 mg capsule RxNorm: 987290 1 Capsule(s) PO TID 01/14/2018 02/13/2018 Inactive gabapentin 300 mg capsule RxNorm: 322840 1 Capsule(s) PO TID 12/04/2017 01/02/2018 Inactive Zorvolex 35 mg capsule RxNorm: 2325444 1 Capsule(s) PO TID as needed for pain 11/25/2017 12/24/2017 Inactive Zorvolex 35 mg capsule RxNorm: 6317335 1 Capsule(s) PO TID as needed for pain 11/21/2017 11/24/2017 Inactive Zorvolex 35 mg capsule RxNorm: 9973356 1 Capsule(s) PO TID as needed for pain 11/21/2017 11/20/2017 Inactive cyclobenzaprine 5 mg tablet RxNorm: 565779 1 Tablet(s) PO TID as needed muscle spasms 11/18/2017 05/01/2018 Inactive gabapentin 300 mg capsule RxNorm: 392626 1 Capsule(s) PO BID No Start Date 12/03/2017 Inactive Medication Administered Medication Codes Instructions Start Date Status Kenalog 40 mg/mL suspension for injection RxNorm: 0350561 1Milliliter 06/05/2018 No longer Active Immunizations No [...] Date INJ TRIGGER POINT 08/06 MUSCL CPT-4: 42099 06/05/2018 TRIAMCINOLONE ACET INJ NOS CPT-4: J3301 06/05/2018 TRIAMCINOLONE ACET INJ NOS CPT-4: J3301 05/01/2018 INJ TRIGGER POINT 2 MUSCL CPT-4: 51198 05/01/2018 Vital Signs Date Vital 06/05/2018 Blood Pressure 1: 140/68 Code: 8480-6 BMI: 28.5 Code: 09639-7 Heart Rate 1: 97 bpm Height: 5'7" SpO2: 98% Weight: 182 lbs 05/01/2018 Blood Pressure 1: 124/72 Code: 8480-6 BMI: 27.1 Code: 14200-3 Heart Rate 1: 86 bpm Height: 5'7" SpO2: 97% Weight: 173 lbs 03/24/2018 Blood Pressure 1: 136/62 Code: 8480-6 BMI: 27.4 Code: 49751-2 Heart Rate 1: 96 bpm Height: 5'7" SpO2: 98% Weight: 175 lbs 11/18/2017 Blood Pressure 1: 152/80 Code: 8480-6 BMI: 27.6 Code: 59885-4 Heart Rate 1: 92 bpm Height: 5'7" [...] MD, [facility] CPT- 4: 85657 06/05/2018 99978 EST. PATIENT, LEVEL IV Diagnosis: Low back pain[ICD10: M54.5] Diagnosis: Pain in thoracic spine[ICD10: M54.6] Diagnosis: Muscle spasm of back[ICD10: M62.830] Shelly Galvez MD, [facility] CPT- 4: 94251 05/01/2018 57960 EST. PATIENT, LEVEL IV Diagnosis: Low back pain[ICD10: M54.5] Diagnosis: Pain in thoracic spine[ICD10: M54.6] Diagnosis: Muscle spasm of back[ICD10: M62.830] Shelly Galvez MD, [facility] CPT- 4: 64660 03/24/2018 OFFICE VISIT, NEW - LEVEL 4 Diagnosis: Low back pain[ICD10: M54.5] Diagnosis: Pain in thoracic spine[ICD10: M54.6] Diagnosis: Abnormal findings on diagnostic imaging of other specified body structures[ICD10: R93.8] Diagnosis: Muscle spasm of back[ICD10: M62.830] Shelly Galvez MD, [facility] CPT- 4: 84552 11/18/2017 Plan of Care Planned Activity Notes Codes Status Date Care Plan: Referral Order SNOMED-CT : 361948066 Pending 06/09/2018 Visit Plan: Chronic Back pain [...] [facility] [phone] [facility] [place] (15 min) Moderate 06/05/2018 Patient [...] practice. 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 Trigger Points - Injected trigger points today, pt given post-injection instructions, signs and symptoms for which to call the office. Pt to use heat to the muscles today, and take an anti-inflammatory today unless otherwise contraindicated by renal function or other disease process. 05/01/2018 Appointment: Shelly Carney [facility]Ptel[facility] [phone] [facility] [place] (15 [...] practice. 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 03/24/2018 Appointment: Shelly Carney WPtel: [facility] [place] (30 min) Complex 03/24/2018 Patient Education: Patient Medication Summary Completed 03/24/2018 Referral: Bruce [place]Ptel: [address] Referral Initiated 12/02/2017 Care Plan: Referral Order SNOMED-CT : 817646043 Pending 11/28/2017 Visit Plan: back pain- the [...] a referral. 11/18/2017 Appointment: Shelly Carney WPtel: [address] [place], [place] [address] New Patient 11/18/2017 Patient Education: Patient Medication Summary Completed 11/18/2017 Referral: Sudha Ruby Referral Initiated Referral: Loren SteeleStates WPtel: [phone] Referral Initiated Instructions Comment . Chronic [...] practice. 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 . [...] practice. 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 Trigger [...]
--- OUTSIDE RECORDS SUMMARY | 2019-01-14 11:00 | XMS REPORT ---
Author Author JAMES ESPINOSA [facility] Address [address] [place] [address] Care Team Providers Care Hose Finisher Name Role Phone JAMES ESPINOSA Unavailable PROBLEMS Type Condition ICD9-CM Code FHA55-ED Code Onset Dates Condition Status SNOMED Code Problem Acute right-sided back pain with sciatica M54.41 Active 161249566 Problem MRSA (methicillin resistant staph aureus) culture positive Z22.322 Active 474556388 ALLERGIES No Information ENCOUNTERS Encounter Location Date Diagnosis [facility] WALK IN [facility] [address] [address] Jun, MRSA (methicillin resistant staph aureus) culture positive Z22.322 [facility] [place] [address] [place] [phone] Jun, [facility] WALK IN [facility] [address] [place] [address] May, Abscess L02.91 [facility] WALK IN [facility] [address] [place] [address] 15 Sep, 2017 Acute right-sided back pain with sciatica M54.41 [facility] [place] [address] [place] [address] May, Dental examination Z01.20 [facility] [place] [address] [place] [address] May, Dental examination Z01.20 [facility] [place] [address] [place] [address] Jul, IMMUNIZATIONS No Known Immunizations SOCIAL HISTORY Never Assessed REASON FOR VISIT refill request PLAN OF CARE VITAL SIGNS MEDICATIONS Unknown Medications RESULTS No Results PROCEDURES No Known procedures INSTRUCTIONS MEDICATIONS ADMINISTERED No Known Medications MEDICAL (GENERAL) HISTORY Type Description Date Medical History chronic back pain Medical History decreased sensation in hands bilaterally Surgical History rotary cuff, right 1995
--- OUTSIDE RECORDS SUMMARY | 2019-01-14 11:00 | XMS REPORT ---
Author Author GARRY GAMBINO [facility] Address [address] [place] [address] Care Team Providers Care Patient Account Specialist Name Role Phone GAMBINOGARRY Unavailable PROBLEMS Type Condition ICD9-CM Code OGI44-VL Code Onset Dates Condition Status SNOMED Code Problem Acute right-sided back pain with sciatica M54.41 Active 702307774 Problem MRSA (methicillin resistant staph aureus) culture positive Z22.322 Active 377907086 ALLERGIES No Information ENCOUNTERS Encounter Location Date Diagnosis [facility] WALK IN [facility] [id number] [place] [address] Jun, MRSA (methicillin resistant staph aureus) culture positive Z22.322 [facility] [id number] [place] [address] Jun, [facility] WALK IN [facility] [id number] [place] [address] May, Abscess L02.91 [facility] WALK IN [facility] [id number] [place] [address] 15 Sep, 2017 Acute right-sided back pain with sciatica M54.41 [facility] [address] [place] [address] May, Dental examination Z01.20 [facility] [id number] [place] [address] May, Dental examination Z01.20 [place] [address] [place] [address] Jul, IMMUNIZATIONS No Known Immunizations SOCIAL HISTORY Never Assessed REASON FOR VISIT Requests return call PLAN OF CARE VITAL SIGNS MEDICATIONS Medication Instructions Dosage Frequency Start Date End Date Duration Status Bactrim DS 800-160 MG Orally Twice a day 1 tablet 12h 10 Jun, 2018 5 days Active RESULTS No Results PROCEDURES No Known procedures INSTRUCTIONS MEDICATIONS ADMINISTERED No Known Medications MEDICAL (GENERAL) HISTORY Type Description Date Medical History chronic back pain Medical History decreased sensation in hands bilaterally Surgical History rotary cuff, right 1995
--- OUTSIDE RECORDS SUMMARY | 2019-01-14 11:00 | XMS REPORT | CCD ---
Author Author Shelly Carney Organization [facility] Address [address] [place] [address] Phone Care Team Providers Care Warhead Maintenance Specialist Name Role Phone PP Unavailable CCM Unavailable Summary Purpose Interface Exchange Family history Father Diagnosis Age At Onset Diabetes mellitus Type 2 Unknown Hyperlipidemia Unknown Brother Diagnosis Age At Onset Diabetes mellitus Type 2 Unknown Social History Social History Element Codes Description Effective Dates Marital status Unknown Single 11/18/2017 Number of children Unknown 2 11/18/[address]: 78404518 Current every day smoker 11/18/2017 Number of years using tobacco Unknown 10 - 20 11/18/2017 Number of cigarettes/day Unknown 10 (Half a pack) 11/18/[address]: 882510 Currently drinks alcohol 11/18/2017 Frequency of drinks SNOMED CT: 664002377 1- 4 drinks per week 11/18/2017 Allergies, [...] Fill Instructions cyclobenzaprine 5 mg tablet RxNorm: 481322 1 Tablet(s) PO TID as needed muscle spasms 06/03/2018 No Stop Date Active Lortab 5 mg-325 mg tablet RxNorm: 5762853 1 Tablet(s) PO Q6 as needed ok'd to fill 1 x 05/08/2018 06/06/2018 Active cyclobenzaprine 5 mg tablet RxNorm: 468818 1 Tablet(s) PO TID as needed muscle spasms 05/02/2018 06/02/2018 Inactive Lortab 5 mg-325 mg tablet RxNorm: 7083381 1 Tablet(s) PO Q6 04/24/2018 05/07/2018 Inactive gabapentin 300 mg capsule RxNorm: 707749 1 Capsule(s) PO TID 04/18/2018 08/15/2018 Active gabapentin 300 mg capsule RxNorm: 669067 1 Capsule(s) PO TID 02/14/2018 04/17/2018 Inactive gabapentin 300 mg capsule RxNorm: 087088 1 Capsule(s) PO TID 01/14/2018 02/13/2018 Inactive gabapentin 300 mg capsule RxNorm: 442490 1 Capsule(s) PO TID 12/04/2017 01/02/2018 Inactive Zorvolex 35 mg capsule RxNorm: 3698980 1 Capsule(s) PO TID as needed for pain 11/25/2017 12/24/2017 Inactive Zorvolex 35 mg capsule RxNorm: 4615642 1 Capsule(s) PO TID as needed for pain 11/21/2017 11/24/2017 Inactive Zorvolex 35 mg capsule RxNorm: 7066223 1 Capsule(s) PO TID as needed for pain 11/21/2017 11/20/2017 Inactive cyclobenzaprine 5 mg tablet RxNorm: 265702 1 Tablet(s) PO TID as needed muscle spasms 11/18/2017 05/01/2018 Inactive gabapentin 300 mg capsule RxNorm: 114769 1 Capsule(s) PO BID No Start Date 12/03/2017 Inactive Medication Administered No Medication Administered data Immunizations No Immunization data Assessments Condition Codes Effective Dates Muscle spasm of back ICD-10: M62.830 ICD-9: 724.8 05/01/2018 Low back pain ICD-10: M54.5 ICD-9: 724.2 05/01/2018 Pain in thoracic spine ICD-10: M54.6 ICD-9: 724.1 05/01/2018 Abnormal findings on diagnostic imaging of other specified body structures ICD-10: R93.8 ICD-9: 793.2 11/18/2017 Reason For Visit Reason For Visit Effective Dates Notes back pain 05/01/2018 back pain 03/24/2018 back pain 11/18/2017 Results No Results data Review of Systems System Result Effective Dates Constitutional No recent illness 05/01/2018 Constitutional No [...] contact 11/18/2017 None Procedures Procedure Codes Date TRIAMCINOLONE ACET INJ NOS CPT-4: J3301 05/01/2018 INJ TRIGGER POINT 1/2 MUSCL CPT-4: 83177 05/01/2018 Vital Signs Date Vital 05/01/2018 Blood Pressure 1: 124/72 Code: 8480-6 BMI: 27.1 Code: 09128-5 Heart Rate 1: 86 bpm Height: 5'7" SpO2: 97% Weight: 173 lbs 03/24/2018 Blood Pressure 1: 136/62 Code: 8480-6 BMI: 27.4 Code: 35772-6 Heart Rate 1: 96 bpm Height: 5'7" SpO2: 98% Weight: 175 lbs 11/18/2017 Blood Pressure 1: 152/80 Code: 8480-6 BMI: 27.6 Code: 73937-3 Heart Rate 1: 92 bpm Height: 5'7" SpO2: 98% Weight: 176 lbs Functional Status No Functional Status data History of Present Illness Symptom Name Status Result Effective Date Notes back pain Location thoracic spine 05/01/2018 None [...] data Encounters Encounter Performer Location Codes Date 63807 EST. PATIENT, LEVEL IV Diagnosis: Low back pain[ICD10: M54.5] Diagnosis: Pain in thoracic spine[ICD10: M54.6] Diagnosis: Muscle spasm of back[ICD10: M62.830] [facility] CPT- 4: 76616 05/01/2018 42021 EST. PATIENT, LEVEL IV Diagnosis: Low back pain[ICD10: M54.5] Diagnosis: Pain in thoracic spine[ICD10: M54.6] Diagnosis: Muscle spasm of back[ICD10: M62.830] Shelly Galvez MD, [facility] CPT- 4: 11562 03/24/2018 OFFICE VISIT, NEW - LEVEL 4 Diagnosis: Low back pain[ICD10: M54.5] Diagnosis: Pain in thoracic spine[ICD10: M54.6] Diagnosis: Abnormal findings on diagnostic imaging of other specified body structures[ICD10: R93.8] Diagnosis: Muscle spasm of back[ICD10: M62.830] [facility] CPT- 4: 82304 11/18/2017 Plan of Care Planned Activity Notes [...] practice. 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 Trigger Points - Injected trigger points today, pt given post-injection instructions, signs and symptoms for which to call the office. Pt to use heat to the muscles today, and take an anti-inflammatory today unless otherwise contraindicated by renal function or other disease process. 05/01/2018 Appointment: Shelly Carney WPtel: [address] [place], [place] [phone] (15 min) Moderate 05/01/2018 Patient Education: Patient [...] practice. 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 03/24/2018 Appointment: Shelly Carney WPtel: [phone] [facility] (30 min) Complex 03/24/2018 Patient Education: Patient Medication Summary Completed 03/24/2018 Referral: Ortho, [place] WPtel: [address] [facility] [address] [id number] Referral Initiated 12/02/2017 Care Plan: Referral Order SNOMED-CT : 342645491 Pending 11/28/2017 Visit Plan: back pain- the [...] a referral. 11/18/2017 Appointment: Shelly Carney WPtel: [facility] [place] [place] New Patient 11/18/2017 Patient Education: Patient Medication Summary Completed 11/18/2017 Referral: Ortho, [place] WPtel: [address] [facility] [address] [id number] Referral Initiated Instructions Comment . Chronic Back [...] practice. 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 [...] practice. 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 Trigger Points - Injected trigger points today, pt given post-injection instructions, signs and symptoms for which to call the office. Pt to use heat to the muscles today, and take an anti-inflammatory today unless otherwise contraindicated by renal function or other disease process.
--- OUTSIDE RECORDS SUMMARY | 2019-01-14 11:00 | XMS REPORT ---
Author Author GIOVANNY LUCAS [facility]ALK IN [facility] Address [address] [place] [address] Care Team Providers Care Business Law Teacher Name Role Phone GIOVANNY LUCAS Unavailable PROBLEMS Type Condition ICD9-CM Code SEN27-NZ Code Onset Dates Condition Status SNOMED Code Problem MRSA (methicillin resistant staph aureus) culture positive Z22.322 Active 121315694 Problem Acute right-sided back pain with sciatica M54.41 Active 195656406 ALLERGIES Substance Reaction Event Type Date Status penicillin Unknown Non Drug Allergy Oct, Active Iodine Unknown Non Drug Allergy Oct, Active ENCOUNTERS Encounter Location Date Diagnosis [facility] [id number] [place] [phone] December, [facility] [id number] [place] [phone] December, [facility] [address] [facility] [id number] [place] [address] December, Acute pain of left shoulder M25.512 [facility] [address] [id number] [address] Oct, [facility] [address] [facility] [id number] [address] Oct, Abscess of external cheek, left L02.01 [facility] [address] [id number] [address] Oct, Abscess L02.91 [facility] WALK IN [facility] [address] [id number] [address] Jun, MRSA (methicillin resistant staph aureus) culture positive Z22.322 [facility] [address] [id number], [place] [address] Jun, [facility] [address] [facility] [id number], [place] [address] May, Abscess L02.91 [facility] WALK IN [facility] [address] [id number] [address] 15 Sep, 2017 Acute right-sided back pain with sciatica M54.41 [place] [address], [place] [address] 17 May, 2016 Dental examination Z01.20 [place] [id number] [address] 10 May, 2016 Dental examination Z01.20 [place] [address] [address] Jul, IMMUNIZATIONS No Known Immunizations SOCIAL HISTORY Never Assessed REASON FOR VISIT facial swelling recheck. Pt was here on Saturday and was told to come back in a couple of days. -Samia WARD PLAN OF CARE Activity Details Follow Up Recheck in 2 days Reason: VITAL SIGNS Height 67 in 2018-10-06 Weight 182 lbs 2018-10-06 Temperature 98.5 degrees Fahrenheit 2018-10-06 Heart Rate 80 bpm 2018-10-06 Respiratory Rate 20 2018-10-06 BMI 28.5 kg/m2 2018-10-06 Blood pressure systolic 118 mmHg 2018-10-06 Blood pressure diastolic 82 mmHg 2018-10-06 MEDICATIONS Medication Instructions Dosage Frequency Start Date End Date Duration Status Gabapentin 300 MG Orally Once a day 1 capsule before bedtime 24h Active [place] 5-325 MG Orally every 6 hrs 1 tablet as needed 6h 4 days Active Sulfamethoxazole-Trimethoprim 800-160 MG Orally Twice a day 1 tablet 12h Oct, 10 day(s) Active Cyclobenzaprine HCl 10 MG Orally Three times a day 1 tablet as needed 8h Active RESULTS No Results PROCEDURES No Known procedures INSTRUCTIONS MEDICATIONS ADMINISTERED No Known Medications MEDICAL (GENERAL) HISTORY Type Description Date Medical History chronic back pain Medical History decreased sensation in hands bilaterally Surgical History rotary cuff, right 1994 Surgical History left carpal tunnel 2018 Surgical History RT hand - carpal tunnel
--- OUTSIDE RECORDS SUMMARY | 2019-01-14 11:00 | XMS REPORT | CCD ---
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 Medicaid [id number] Unknown Family history Father Diagnosis Age At Onset Diabetes mellitus Type 2 Unknown Hyperlipidemia Unknown Brother Diagnosis Age At Onset Diabetes mellitus Type 2 Unknown Social History Social History Element Codes Description Effective Dates Marital status Unknown Single 11/18/2017 Number of children Unknown 2 11/18/[address]: 15292148 Current every day smoker 11/18/2017 Number of years using tobacco Unknown 10 - 20 11/18/2017 Number of cigarettes/day Unknown 10 (Half a pack) 11/18/[address]: 614546 Currently drinks alcohol 11/18/2017 Frequency of drinks SNOMED CT: 869730282 1- 4 drinks per week 11/18/2017 Allergies, [...] Kenalog 40 mg/mL suspension for injection RxNorm: 3947707 1 Milliliter(s) Inj 06/05/2018 06/05/2018 Inactive cyclobenzaprine 5 mg tablet RxNorm: 870766 1 Tablet(s) PO TID as needed muscle spasms 06/03/2018 No Stop Date Active Lortab 5 mg-325 mg tablet RxNorm: 9092911 1 Tablet(s) PO Q6 as needed ok'd to fill 1 x 05/08/2018 06/06/2018 Inactive cyclobenzaprine 5 mg tablet RxNorm: 408861 1 Tablet(s) PO TID as needed muscle spasms 05/02/2018 06/02/2018 Inactive Lortab 5 mg-325 mg tablet RxNorm: 6055576 1 Tablet(s) PO Q6 04/24/2018 05/07/2018 Inactive gabapentin 300 mg capsule RxNorm: 072488 1 Capsule(s) PO TID 04/18/2018 08/15/2018 Active gabapentin 300 mg capsule RxNorm: 512574 1 Capsule(s) PO TID 02/14/2018 04/17/2018 Inactive gabapentin 300 mg capsule RxNorm: 634949 1 Capsule(s) PO TID 01/14/2018 02/13/2018 Inactive gabapentin 300 mg capsule RxNorm: 793999 1 Capsule(s) PO TID 12/04/2017 01/02/2018 Inactive Zorvolex 35 mg capsule RxNorm: 4903695 1 Capsule(s) PO TID as needed for pain 11/25/2017 12/24/2017 Inactive Zorvolex 35 mg capsule RxNorm: 3089158 1 Capsule(s) PO TID as needed for pain 11/21/2017 11/24/2017 Inactive Zorvolex 35 mg capsule RxNorm: 5369020 1 Capsule(s) PO TID as needed for pain 11/21/2017 11/20/2017 Inactive cyclobenzaprine 5 mg tablet RxNorm: 188364 1 Tablet(s) PO TID as needed muscle spasms 11/18/2017 05/01/2018 Inactive gabapentin 300 mg capsule RxNorm: 060731 1 Capsule(s) PO BID No Start Date 12/03/2017 Inactive Medication Administered Medication Codes Instructions Start Date Status Kenalog 40 mg/mL suspension for injection RxNorm: 9133246 1Milliliter 06/05/2018 No longer Active Immunizations No [...] Date INJ TRIGGER POINT 08/06 MUSCL CPT-4: 15870 06/05/2018 TRIAMCINOLONE ACET INJ NOS CPT-4: J3301 06/05/2018 TRIAMCINOLONE ACET INJ NOS CPT-4: J3301 05/01/2018 INJ TRIGGER POINT 2 MUSCL CPT-4: 97139 05/01/2018 Vital Signs Date Vital 06/05/2018 Blood Pressure 1: 140/68 Code: 8480-6 BMI: 28.5 Code: 15314-1 Heart Rate 1: 97 bpm Height: 5'7" SpO2: 98% Weight: 182 lbs 05/01/2018 Blood Pressure 1: 124/72 Code: 8480-6 BMI: 27.1 Code: 40565-7 Heart Rate 1: 86 bpm Height: 5'7" SpO2: 97% Weight: 173 lbs 03/24/2018 Blood Pressure 1: 136/62 Code: 8480-6 BMI: 27.4 Code: 08674-6 Heart Rate 1: 96 bpm Height: 5'7" SpO2: 98% Weight: 175 lbs 11/18/2017 Blood Pressure 1: 152/80 Code: 8480-6 BMI: 27.6 Code: 49601-3 Heart Rate 1: 92 bpm Height: 5'7" [...] spasm of back[ICD10: M62.830] Shelly Galvez MD, [facility] CPT- 4: 00650 06/05/2018 06704 EST. PATIENT, LEVEL IV Diagnosis: Low back pain[ICD10: M54.5] Diagnosis: Pain in thoracic spine[ICD10: M54.6] Diagnosis: Muscle spasm of back[ICD10: M62.830] Shelly Galvez MD, [facility] CPT- 4: 48516 05/01/2018 29645 EST. PATIENT, LEVEL IV Diagnosis: Low back pain[ICD10: M54.5] Diagnosis: Pain in thoracic spine[ICD10: M54.6] Diagnosis: Muscle spasm of back[ICD10: M62.830] Shelly Galvez MD, [facility] CPT- 4: 94348 03/24/2018 OFFICE VISIT, NEW - LEVEL 4 Diagnosis: Low back pain[ICD10: M54.5] Diagnosis: Pain in thoracic spine[ICD10: M54.6] Diagnosis: Abnormal findings on diagnostic imaging of other specified body structures[ICD10: R93.8] Diagnosis: Muscle spasm of back[ICD10: M62.830] Shelly Galvez MD, [facility] CPT- 4: 22040 11/18/2017 Plan of Care Planned Activity Notes Codes Status Date Care Plan: Referral Order SNOMED-CT : 611476977 Pending 06/09/2018 Visit Plan: Chronic Back pain [...] process. 06/05/2018 [facility]ment[facility] [phone] [facility] [place] ([facility] min) Moderate 06/05/2018 Patient [...] process. 05/01/2018 Appointment: [facility] [phone] [facility] [place] (15 min) Moderate 05/01/2018 Patient [...] back pain. 03/24/2018 Appointment: Shelly Carney [facility]Ptel[facility] [place] (30 min) Complex 03/24/2018 Patient Education: Patient Medication Summary Completed 03/24/2018 Referral: Bruce Steele[place] WPtel: [phone] Referral Initiated 12/02/2017 Care Plan: Referral Order SNOMED-CT : 453728750 Pending 11/28/2017 Visit Plan: back pain- the [...] a referral. 11/18/2017 Appointment: Shelly Carney WPtel: [address] [place], [place] [address] New Patient 11/18/2017 Patient Education: Patient Medication Summary Completed 11/18/2017 Referral: Sudha Ruby Referral Initiated Referral: Loren SteeleStates WPtel: [phone] Referral Initiated Instructions Comment . Chronic [...]
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
--- OUTSIDE RECORDS SUMMARY | 2019-01-14 11:01 | XMS REPORT ---
Author Author JAMES ESPINOSA [facility] Address [address] [place] [address] Care Team Providers Care Storekeeper Helper Name Role Phone JAMES ESPINOSA Unavailable PROBLEMS Type Condition ICD9-CM Code JUU04-PK Code Onset Dates Condition Status SNOMED Code Problem Acute right-sided back pain with sciatica M54.41 Active 414240903 ALLERGIES Substance Reaction Event Type Date Status penicillin Unknown Non Drug Allergy May, Active Iodine Unknown Non Drug Allergy May, Active ENCOUNTERS Encounter Location Date Diagnosis [facility] [id number] [place] [id number] May, Abscess L02.91 [facility] [address] [id number] Sep, Acute right-sided back pain with sciatica M54.41 [facility] [address] [phone] May, Dental examination Z01.20 [place] [id number] [place] [phone] May, Dental examination Z01.20 [place] [id number] [place] [id number] Jul, IMMUNIZATIONS No Known Immunizations SOCIAL HISTORY Never Assessed REASON FOR VISIT sore on carolyn of left patella. draining for the past 24 hours. has been there for 3 days. started out as a small area et has gotten better. ekaterina, also has a sore in his left ear PLAN OF CARE Activity Details Follow Up if not improving with PCP or reg follow up Reason: Pending Test CULTURE, ANAEROBIC AND AEROBIC Future/Pending Procedure I & D SIMPLE ABSCESS VITAL SIGNS Height 67 in 2018-05-31 Weight 175.2 lbs 2018-05-31 Temperature 99.0 degrees Fahrenheit 2018-05-31 Heart Rate 88 bpm 2018-05-31 Respiratory Rate 20 2018-05-31 BMI 27.44 kg/m2 2018-05-31 Blood pressure systolic 130 mmHg 2018-05-31 Blood pressure diastolic 72 mmHg 2018-05-31 MEDICATIONS Medication Instructions Dosage Frequency Start Date End Date Duration Status Prescott 5-325 MG Orally every 6 hrs 1 tablet as needed 6h 4 days Active Doxycycline Hyclate 100 mg Orally twice a day 1 capsule 12h May, Jun, 10 day(s) Active Gabapentin 300 MG Orally Once a day 1 capsule before bedtime 24h Active RESULTS No Results PROCEDURES Procedure Date Ordered Result Body Site CULTURE BACTERIA ANAEROBIC May 31, 2018 CULTURE, BACTERIA, OTHER May 31, 2018 DRAINAGE OF SKIN ABSCESS May 31, 2018 INSTRUCTIONS MEDICATIONS ADMINISTERED No Known Medications MEDICAL (GENERAL) HISTORY Type Description Date Medical History chronic back pain Medical History decreased sensation in hands bilaterally Surgical History rotary cuff, right 1995
[2019-01-14] MEDS ORDERED: oxyCODONE/APAP 5/325MG (PERCOCET 5) TABLET PO PRN (11:15)
[2019-01-14] MEDS ORDERED: GLYCOPYRROLATE 0.2 MG/ML (ROBINUL) 2 ML VIAL ONE (11:49)
[2019-01-14] MEDS ORDERED: NEOSTIGMINE 1 MG/ML 5 ML SYRINGE ONE (11:49)
[2019-01-14] MEDS ORDERED: HYDROmorphone 2 MG/ML VIAL (DILAUDID) IV ONE (12:15)
[2019-01-14] MEDS ORDERED: ONDANSETRON 4 MG/2 ML (SDV) Z0FRAN IVP PRN (12:15)
[2019-01-14] MEDS ORDERED: OXYC-471 PO (13:09)
--- NOTE | 2019-01-14 14:02 | Anesthesia-General Post-Op ---
General Patient Condition Mental Status/LOC: Same as Preop Cardiovascular: Satisfactory Nausea/Vomiting: Absent Respiratory: Satisfactory Pain: Controlled Complications: Absent Post Op Complications Complications None Follow Up Care/Instructions Patient Instructions None needed. Anesthesia/Patient Condition Patient Condition Patient is doing well, no complaints, stable vital signs, no apparent adverse anesthesia problems. No complications reported per nursing. BURKE ETIENNE CRNA Jan 14, 2019 14:02
--- NOTE | 2019-01-14 17:48 | OPERATIVE REPORT ---
DATE OF SERVICE: 01/14/2019 PREOPERATIVE DIAGNOSES: 1. Left shoulder rotator cuff tear. 2. Left shoulder SLAP tear. 3. Left shoulder labral tear. POSTOPERATIVE DIAGNOSES: 1. Left shoulder rotator cuff tear. 2. Left shoulder SLAP tear. 3. Left shoulder labral tear. PROCEDURES PERFORMED: 1. Left shoulder open rotator cuff repair. 2. Left shoulder arthroscopic biceps tenotomy. 3. Left shoulder arthroscopic labral debridement. 4. Left shoulder arthroscopic acromioplasty. SURGEON: Michael Carter MD. FISH FLIPPER: MICH Mendoza, who assisted throughout the procedure and closed the incisions. ANESTHESIA: General endotracheal plus interscalene nerve block by Mike ROD. ESTIMATED BLOOD LOSS: Minimal. DRAINS: None. COMPLICATIONS: None. POSTOPERATIVE PLAN: Routine rotator cuff protocol with Sling wear and passive range of motion for 4 weeks. STATEMENT OF MEDICAL NECESSITY: The patient is a 53-year-old right-hand dominant gentleman with complaints of progressively worsening left shoulder pain and weakness and a positive Neer's, positive Landaverde sign, weakness with abduction and external rotation. An MRI confirmed a full thickness supraspinatus tear with a near complete disruption of the biceps anchor. Due to functional impairment and failure to improve with conservative measures, the patient elected to proceed with surgical intervention. Examination under anesthesia revealed forward elevation of 170 degrees, external rotation 85 degrees, internal rotation of 70 degrees. Arthroscopic findings demonstrated a full thickness supraspinatus tear approximately 1.5 x 1 cm in size. The biceps anchor was approximately 75% disrupted at its attachment. The anterior labrum demonstrated a flap tear at the 10 o'clock position. The remainder of the capsule labral complex was intact. The humeral head and glenoid demonstrated no gross chondral abnormalities. Subacromial space demonstrated moderate bursitis with slope in the anterior lateral acromion. DESCRIPTION OF PROCEDURE: After risks and benefits of procedure were discussed and questions were answered, informed consent was signed and placed in the chart. The operative site was confirmed in the preoperative holding area initialed by the surgeon. The patient was transferred to the operating room. After adequate levels of regional and general endotracheal anesthetic were obtained, a timeout was called, confirming the operative site. Left upper extremity was prepped and draped in the usual sterile fashion. The shoulder joint was injected with 20 mL of fluid as was the subacromial space. A standard posterior portal was placed under direct visualization. Anterior portal was created in the interval between the biceps, subscapularis and glenoid. The biceps anchor was released and the stump was debrided with a shaver. The anterior labral flap was debrided with the shaver as well. The scope was then redirected into the subacromial space and lateral portal was created. Bursectomy was performed and the acromion was planed to a flat type 1 acromion. Lateral portal was then extended. The deltoid was split in line with its fibers leaving it attached to the acromion. The rotator cuff tear was mobilized and a bleeding bony bed was prepared just off the articular surface. A single corkscrew anchor was placed and a modified Hemal-Gael repair was performed with an excellent repair obtained and no undue tension was noted with the arm at the side. The wound was copiously irrigated. The deltoid was repaired in a riuo-on-uzao fashion using #2 FiberWire in uyhjfn-iu-pewtp interrupted fashion. The wound was further irrigated. A 2-0 Vicryl was used to reapproximate subcutaneous tissue. Skin was closed with 4-0 nylon in a running alternating horizontal mattress fashion. The portal sites were closed with 4-0 nylon in a simple interrupted fashion. A soft dressing and a sling were applied and the patient was transferred to the recovery room awake and in stable condition. Job ID: [id number] DocumentID: [id number] Dictated Date: 01/14/2019 12:03:06 Globe Cleaner Date: 01/14/2019 17:46:56 Dictated By: MICHAEL CARTER MD
== END 2019-01-14 13:50 | disposition home or self-care (01) ==
LOC: SDC 09:17
PROVIDERS: ATTEND Orthopaedic Surgery
DX: M75.102 Unspecified rotator cuff tear or rupture of left shoulder, not specified as traumatic (principal); S43.432A Superior glenoid labrum lesion of left shoulder, initial encounter; M75.82 Other shoulder lesions, left shoulder; M75.52 Bursitis of left shoulder; M54.9 Dorsalgia, unspecified; G62.9 Polyneuropathy, unspecified; Z79.899 Other long term (current) drug therapy; F17.210 Nicotine dependence, cigarettes, uncomplicated

== ENCOUNTER → 2019-03-04 | Outpatient (CLI) | payer MEDICAID ==
[~2019-03-04] MED LIST changes: +OXYC-471 PO; +RT-ALBUTEROL SULF 2.5 MG/3 ML PRE-MIX VIAL INH ONE; +RT-ALBUTEROL SULF 2.5 MG/3 ML PRE-MIX VIAL ONE
--- NOTE | 2019-03-04 17:04 | Diagnostic Imaging Report ---
PROCEDURE: CT chest without contrast. TECHNIQUE: Multiple contiguous axial images were obtained through the chest without the use of intravenous contrast. Auto Exposure Controls were utilized during the CT exam to meet ALARA standards for radiation dose reduction. DATE: March 04, 2019. COMPARISON: CT chest, June 16, 2018. CT chest, November 09, 2017. INDICATION: 53-year-old male, followup pulmonary nodule. History of tobacco use. PROCEDURE: Axial noncontrasted CT images of the chest. Noncontrasted limits the evaluation of the mediastinum and vascular structures. FINDINGS: There is a focal area of high attenuation abutting the right lower lobe lower pleural margin extending towards the liver, which is unchanged since November 09, 2017. This most likely reflects focal scarring. There are mild dependent opacities in the right lower lobe compatible with mild dependent atelectasis and/or scarring. There are also mild dependent linear opacities in the left lower lobe consistent with mild atelectasis and/or scarring. There is a benign calcified 2 mm left lower lobe granuloma on axial image 44. There is no additional focal airspace consolidation. There is no identified pulmonary nodule or lung mass. The central airways are patent. There is no pneumothorax. There is no pleural effusion. The heart is not enlarged. There is no identified pericardial effusion. There is no identified abnormally enlarged mediastinal or axillary lymph node which meets CT size criteria for adenopathy. There is a low-attenuation left renal lesion incompletely imaged measuring at least 3.7 cm in size. The lesion is compatible with a benign cyst in its imaged portions although cannot be definitively classified as it is incompletely imaged. There are punctate nonobstructing 1-2 mm bilateral renal stones. Additional evaluation of the imaged portions of the abdomen is unremarkable. There are mild atherosclerotic calcifications noted. There are degenerative changes of the spine. There is a 3 mm sclerotic lesion in the right proximal humerus most likely relating to a benign bone island. There is no identified acute bony abnormality. IMPRESSION: 1. Focal peripheral area of high attenuation adjacent to the lower aspect of the right pleural margin extending towards the liver which is most consistent with focal scarring. 2. Mild dependent atelectasis and/or scarring additionally noted in the right and left lower lobes. 3. No concerning pulmonary nodule or lung mass. 4. Nonobstructing 1-2 mm bilateral renal stones. Dictated by: Dictated on workstation # [id number]
== END ==
LOC: RT 13:58
PROVIDERS: ATTEND Nurse Practitioner Family
DX: J30.2 Other seasonal allergic rhinitis (principal); R91.8 Other nonspecific abnormal finding of lung field; F17.200 Nicotine dependence, unspecified, uncomplicated
CPT/HCPCS: 71250; 94060; 94726; 94729

== ENCOUNTER → 2019-04-21 | Outpatient (CLI) | payer MEDICAID ==
[~2019-04-21] MED LIST changes: -RT-ALBUTEROL SULF 2.5 MG/3 ML PRE-MIX VIAL INH ONE; -RT-ALBUTEROL SULF 2.5 MG/3 ML PRE-MIX VIAL ONE
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
== END ==
LOC: RAD 13:18
PROVIDERS: ATTEND Orthopaedic Surgery Orthopaedic Surgery of the Spine
DX: M48.02 Spinal stenosis, cervical region (principal); M47.812 Spondylosis without myelopathy or radiculopathy, cervical region
CPT/HCPCS: 72125

== ENCOUNTER 2019-05-05 12:13 | Outpatient (CLI) | payer MEDICAID ==
[~2019-05-05] VITALS: Ht 170.2 cm; Wt 80.4 kg
[2019-05-05] MEDS ORDERED: DICL50TA6 PO (12:27)
[2019-05-05 12:50] LABS: BASOPHILS # (AUTO) 0.1 10^3/uL (0.0-0.1); BASOPHILS % (AUTO) 1 % (0-10); EOSINOPHILS # (AUTO) 0.4 10^3/uL (0.0-0.3); EOSINOPHILS % (AUTO) 4 % (0-10); HEMATOCRIT 43 % (40-54); HEMOGLOBIN 13.9 G/DL (13.3-17.7); LYMPHOCYTES % (AUTO) 36 % (12-44); MEAN CORPUSCULAR HEMOGLOBIN 28 PG (25-34); MEAN CORPUSCULAR HGB CONC 33 G/DL (32-36); MEAN CORPUSCULAR VOLUME 85 FL (80-99); MEAN PLATELET VOLUME 9.8 FL (7.4-10.4); MONOCYTES % (AUTO) 12 % (0-12); NEUTROPHILS # (AUTO) 3.9 X 10^3 (1.8-7.8); NEUTROPHILS % (AUTO) 47 % (42-75); PLATELET COUNT 271 10^3/uL (130-400); RED CELL DISTRIBUTION WIDTH 16.1 % (10.0-14.5); WHITE BLOOD COUNT 8.4 10^3/uL (4.3-11.0)
[2019-05-05 13:03] VITALS: BP 141/90
[2019-05-05 13:16] LABS: ALANINE AMINOTRANSFERASE 33 U/L (0-55); ALBUMIN 4.2 GM/DL (3.2-4.5); ALKALINE PHOSPHATASE 106 U/L (40-136); BILIRUBIN,TOTAL 0.3 MG/DL (0.1-1.0); BUN/CREATININE RATIO 20; CALCIUM 8.8 MG/DL (8.5-10.1); CARBON DIOXIDE 25 MMOL/L (21-32); CHLORIDE 109 MMOL/L (98-107); CREATININE SERUM 0.83 MG/DL (0.60-1.30); GFR ESTIMATED > 60; GLUCOSE 89 MG/DL (70-105); POTASSIUM 4.3 MMOL/L (3.6-5.0); SODIUM 140 MMOL/L (135-145)
[2019-05-05] MEDS ORDERED: DICL50TA4 PO (13:17)
== END 2019-05-05 12:40 | disposition home or self-care (01) ==
LOC: PREOP 12:13
PROVIDERS: ATTEND Orthopaedic Surgery Orthopaedic Surgery of the Spine
DX: Z01.818 Encounter for other preprocedural examination (principal); M48.02 Spinal stenosis, cervical region
CPT/HCPCS: 36415; 80053; 85025

== ENCOUNTER 2019-05-11 05:57 | Inpatient (IN) | payer MEDICAID ==
[~2019-05-11] VITALS: Ht 170.2 cm; Wt 80.4 kg
[2019-05-11] VITALS (12 sets, daily range): BP systolic 92–136; BP diastolic 62–83
[~2019-05-11 05:57] MED LIST changes: +DICL50TA4 PO; +DICL50TA6 PO
[2019-05-11] MEDS ORDERED: CLINDAMYCIN 900 MG/50 ML IVPB 50 ML IV ONE ×2 (06:15→06:53)
[2019-05-11] MEDS: LACTATED RINGERS 1,000 ML IV PRN ×2 (06:56→08:25)
[2019-05-11] MEDS ORDERED: proPOfol 200 MG/20 ML (DIPRIVAN) VIAL IV ONE (06:58)
[2019-05-11] MEDS ORDERED: ONDANSETRON 4 MG/2 ML (SDV) Z0FRAN ONE (06:58)
[2019-05-11] MEDS ORDERED: SUCCINYLCHOLINE INJ 100 MG/5 ML SYR ONE (06:58)
[2019-05-11] MEDS ORDERED: MIDAZOLAM 2 MG/2 ML (VERSED) VIAL ONE (06:58)
[2019-05-11] MEDS ORDERED: LIDOCAINE PF 2% 5 ML (XYLOCAINE) VIAL ONE (06:58)
[2019-05-11] MEDS ORDERED: fentaNYL INJECTION 100 MCG/2 ML AMP ONE ×2 (06:58→08:43)
[2019-05-11] MEDS ORDERED: ROCURONIUM 10 MG/ML 5 ML SYRINGE IV ONE (06:58)
[2019-05-11] MEDS ORDERED: MILK OF MAGNESIA 400 MG/5 ML 30 ML UDC PO PRN (07:00)
[2019-05-11] MEDS ORDERED: BISACODYL 5 MG (DULCOLAX) TABLET PO PRN (07:00)
[2019-05-11] MEDS ORDERED: CYCLOBENZAPRINE 10 MG (FLEXERIL) TAB PO PRN (07:00)
[2019-05-11] MEDS ORDERED: ACETAMINOPHEN 325 MG TABLET PO PRN (07:00)
[2019-05-11] MEDS ORDERED: DOCUSATE SODIUM 100 MG (COLACE) CAP PO PRN (07:00)
[2019-05-11] MEDS ORDERED: PROMETHAZINE 25 MG (PHENERGAN) TAB PO PRN (07:00)
[2019-05-11] MEDS ORDERED: ONDANSETRON 4 MG (ZOFRAN) ORAL DISSOLVE TAB PO PRN (07:00)
[2019-05-11] MEDS ORDERED: ONDANSETRON 4 MG/2 ML (SDV) Z0FRAN IV PRN (07:00)
[2019-05-11] MEDS ORDERED: GENTAMICIN 40 MG/ML 2 ML INJ SDV ONE (07:04)
[2019-05-11] MEDS ORDERED: DEXMEDETOMIDINE 200 MCG/2 ML (PRECEDEX) VIAL IV ONE (07:04)
[2019-05-11] MEDS ORDERED: NS (IVPB) 250 ML ONE (07:08)
[2019-05-11] MEDS ORDERED: DEXAMETHASONE 10 MG/ML (DECADRON) 1 ML VIAL ONE (07:11)
[2019-05-11] MEDS ORDERED: SEVOFLURANE (ULTANE) 15 ML INHAL SOLN ONE (09:30)
--- NOTE | 2019-05-11 09:37 | Progress Note-Post Operative ---
Post-Operative Progess Note Surgeon (s)/Gi Technician (s) Surgeon DAVID DELGADO MD Gi Technician: CARLEY Ralph Pre-Operative Diagnosis Cervcial Spondylosis Post-Operative Diagnosis Same Procedure & Operative Findings Date of Procedure 05/11/19 Procedure Performed/Findings C3-7 ACDF w/ plate and screws Anesthesia Type GETA Estimated Blood Loss Estimated blood loss (mL): min Specimens/Packing Specimens Removed none DAVID DELGADO MD May 11, 2019 09:37
[2019-05-11] MEDS ORDERED: HYDROmorphone 2 MG/ML VIAL (DILAUDID) IV ONE (10:00)
[2019-05-11] MEDS ORDERED: HYDROmorphone 2 MG/ML VIAL (DILAUDID) ONE (10:00)
[2019-05-11] MEDS ORDERED: PROMETHAZINE INJ 25 MG/ML (PHENERGAN) AMP IVP ONE (10:00)
[2019-05-11] MEDS ORDERED: morphine INJ 10 MG/ML 1ML (SYR OR VIAL) IVP ONE (10:00)
[2019-05-11] MEDS ORDERED: ONDANSETRON 4 MG/2 ML (SDV) Z0FRAN IVP PRN (10:00)
[2019-05-11] MEDS ORDERED: MEPERIDINE (DEMEROL) INJ 50 MG/ML IVP ONE (10:00)
--- NOTE | 2019-05-11 10:50 | NUR ---
MAXI KAN admitted to room 423-1, with an admitting diagnosis of C3-7 interior discectomy with fusion, on 05/11/19 from PACU, accompanied by family and staff.MAXI KAN introduced to surroundings, call light, bed controls, phone, TV, temperature control, lights, meal times, smoking policy, visitor policy, side rail policy, bathrooms and showers. MAXI KAN verbalizes understanding that [facility] is not responsible for the loss or damage to any personal effects or valuables that are kept in the patients posession during their hospitalization. MAXI KAN verbalizes understanding of Interdisciplinary Patient Education. Patient and family were informed about the Rapid Response Team and its purpose.
--- NOTE | 2019-05-11 11:20 | Diagnostic Imaging Report ---
INDICATION: Fluoroscopy during cervical spine surgery. FINDINGS: Fluoroscopy was provided in the OR during cervical spine surgery. 10 seconds of fluoroscopic time was utilized. Images demonstrate anterior plate and screws transfixing the C3-C7 levels. IMPRESSION: Fluoroscopy for cervical spine surgery. Dictated by: Dictated on workstation # [id number]
[2019-05-11] MEDS: HYDROcodone/APAP 10 MG/325 MG (LORTAB) TAB PO PRN ×3 (12:01→20:34)
--- NOTE | 2019-05-11 16:27 | OPERATIVE REPORT ---
DATE OF SERVICE: 05/11/2019 PREOPERATIVE DIAGNOSES: Cervical spondylosis with radiculopathy, cervical stenosis, neural foramen due to the size, structures, cervical disk herniation, cervical radiculopathy. POSTOPERATIVE DIAGNOSES: Cervical spondylosis with radiculopathy, cervical stenosis, neural foramen due to the size, structures, cervical disk herniation, cervical radiculopathy. PROCEDURE PERFORMED: 1. C3-C4 anterior cervical discectomy and fusion. 2. C4-C5 anterior cervical discectomy and fusion. 3. C5-C6 anterior cervical discectomy and fusion. 4. C6-C7 anterior cervical discectomy and fusion. 5. C3-C4, C4-C5, C5-C6 and C6-C7 interbody cage instrumentation without interval fixation. 6. C3-C7 anterior cervical plate instrumentation. 7. Allograft for spine surgery, morselized. DATE AND TIME OF SURGERY: Please see anesthesia record. IMPLANTS USED: [employer] MaxAn cervical plate, [employer] Trellus titanium cervical interbody cages and i-FACTOR bone graft. SURGEON: David Narvaez MD MASTER CONTROL SUPERVISOR: MAURICIO Ralph. ROLE OF FRENCH LECTURER: Aid in retraction of the procedure, aid in implantation, instrumentation and wound closure. ANESTHESIA: General endotracheal. ESTIMATED BLOOD LOSS: Minimal. INTRAVENOUS FLUIDS: Please see anesthesia record. ANTIBIOTICS: Ancef. COMPLICATIONS: None. INDICATIONS FOR PROCEDURE: The patient is a 53-year-old male with progressive and intolerable neck and arm pain, failed conservative therapy, desires operative treatment. NEUROMONITORING: Standard intraoperative neuromonitoring carried out by means of real time continuous high quality bidirectional mode, audio and visual communication to both the brewing technician and surgeon was performed by Dr. Steele. SSEPs, EMGs, TcMEPs, and TOFs were carried out continuously throughout the procedure and stable. DESCRIPTION OF PROCEDURE: The patient preoperatively brought back to the operative suite. After adequate induction of general anesthetic, preoperative antibiotics, placed supine on the OR table. Shoulder roll was placed, head extended, sterile prep and drape, the anterior cervical spine. Standard left-sided Oro-Berkowitz approach to the neck was made through an oblique incision down to the neck. Once the appropriate level was confirmed, Shadow-Line retractor was placed deep to longus colli for remainder of the case and starting at the 3, 4 level. [place] pins were placed, anterior dissection performed disk decompression all the way down to the posterior longitudinal ligament was performed. Implants were prepared. Bilateral foraminotomies performed and trial spacer was utilized and the appropriate size trial was cage filled with I-factor bone graft was impacted in position with great fit achieved. Procedure was then carried out at the C4-C5, C5-C6 and C6-C7 levels. Once all 4 levels were adequately decompressed and infused, Portland pins removed anterior osteophytes taken down. The appropriate size MaxAn plate was affixed to the spine with a combination of 14 and 16 mm variable angle screws. Locking mechanism was deployed. Wound was copiously irrigated. Surgiflo and bone wax were used to aid in hemostasis as well as bipolar cautery. Deep drain was placed. Wound was closed in layers. The patient transferred to recovery room in stable condition and tolerated the procedure well with stable spinal monitoring. Job ID: [id number] DocumentID: [id number] Dictated Date: 05/11/2019 09:35:58 Wireless Sales Expert Date: 05/11/2019 16:25:31 Dictated By: DAVID NARVAEZ MD MTDD
[2019-05-11] MEDS: MULTIVIT W/MINERALS TAB (THERAGRAN M) PO SCH (16:34)
[2019-05-11] MEDS: CLINDAMYCIN 900 MG/50 ML IVPB 50 ML IV SCH ×2 (16:35→23:51)
[2019-05-11] MEDS: morphine INJ 10 MG/ML 1ML (SYR OR VIAL) IVP PRN ×2 (17:07→20:34)
[2019-05-11] MEDS ORDERED: FLU QUADRIvalent (5+ YOA) 2019-2020 (AFLURIA) 0.5 ML IM ONE (19:15)
[2019-05-12] MEDS: morphine INJ 10 MG/ML 1ML (SYR OR VIAL) IVP PRN (00:44)
[2019-05-12] MEDS: HYDROcodone/APAP 10 MG/325 MG (LORTAB) TAB PO PRN (00:44)
[2019-05-12 00:51] VITALS: BP 130/78
[2019-05-12 04:25] VITALS: BP 128/78
[2019-05-12] MEDS ORDERED: HYDR-3820 PO (05:04)
--- NOTE | 2019-05-12 05:08 | Discharge Summary ---
Discharge Summary Hospital Course Problems Reviewed?: Yes Final Diagnosis: Cervical stenosis with radiculopathy Hospital Course Date of Admission: May 11, 2019 at 05:57 Admission Diagnosis : Family Physician/Provider: Deleted Date of Discharge: 05/12/19 Discharge Diagnosis: [ ] Hospital Course: [ ] Labs and Pending Lab Test: Home Meds Active Hydrocodon-Acetaminophn 10-325 (Hydrocodone/Acetaminophen) 1 Each Tablet 1 Ea PO Q4H PRN Reported Diclofenac Potassium 50 Mg Tablet 50 Mg PO BID Gabapentin 300 Mg Capsule 300 Mg PO TID Activity as Tolerated: No No lifting > 10 lbs. Wear hard collar when out of bed May shower, but do not submerge incision No driving until follow up Follow up with Dr. Narvaez in 2 weeks Driving Instructions: No Driving for 2 Weeks Incentive Spirometry: Every 2 Hours While Awake Avoid ALL Tobacco Products: Smoking of Any Kind Discharge Diet: No Restrictions Symptoms to Report to Physicia: Numbness/Tingling, Bleeding Excessive, Pain Increased, Fever Over 101 Degrees F If Any Problems/Questions/Issu: Contact Your Physician, Go to Emergency Room Skin/Wound Care Instructions Infection Signs and Symptoms: Increased Redness, Foul Odor of Wound, Increased Drainage, Increased Swelling, Temperature Above 101 F Bathing Instructions: Shower Operative Area Clean and Dry: Keep Incision Clean/Dry Stitches/[place]/Dermabond Dis: Dermabond Discharge Summary Date of Admission May 11, 2019 at 05:57 Date of Discharge Clinical Quality Measures DVT/VTE Risk/Contraindication: Risk Factor Score Per Nursin RFS Level Per Nursing on Admit: 1=Low/No VTE PPX KALINA QUINTERO May 12, 2019 05:08
--- NOTE | 2019-05-12 05:12 | Discharge Summary ---
Diagnosis/Chief Complaint Date of Admission May 11, 2019 at 05:57 Date of Discharge Discharge Date: May 12, 2019 Discharge Time: 05:09 Admission Diagnosis Admission Diagnosis Cervical stenosis with radiculopathy Discharge Diagnosis Cervical stenosis with radiculopathy Reason Hospital Visit Patient brought to [facility] for scheduled ACDF. Patient underwent C3-7 ACDF. Patient progressed well after surgery. He tolerated a diet, ambulated, and had good pain control with oral analgesics. Due to his continued progress he was discharged home on POD #1. Discharge Summary Hospital Course Was the Problem List Reviewed?: Yes Hospital Course Patient brought to [facility] for scheduled ACDF. Patient underwent C3-7 ACDF. Patient progressed well after surgery. He tolerated a diet, ambulated, and had good pain control with oral analgesics. Due to his continued progress he was discharged home on POD #1. Procedures None. Discharge Physical Examination Allergies: Coded Allergies: Penicillins (Verified Allergy, Unknown, 11/09/17) iodine (Verified Allergy, Unknown, 11/09/17) Vitals & I&Os Vital Signs Date Time Temp Pulse Resp B/P (MAP) Pulse Ox O2 Delivery O2 Flow Rate FiO2 05/12/19 00:51 37.2 74 18 130/78 (95) 97 Room Air 05/11/19 20:24 2.00 General Appearance: Alert, Oriented X3, No Acute Distress HEENT: PERRLA Respiratory: Normal Air Movement Cardiovascular: Regular Rate Abdominal: Soft Skin: Other (Incision CDI) Neuro: Normal Speech, Strength at 5/5 X4 Ext, Normal Tone, Sensation Intact, Cranial Nerves 3-12 NL, Other (Trachea midline, normal phonation) Psych/Mental Status: Mental Status NL Discharge Home Medications Reviewed and agree with Discharge Medication list on patient's Discharge Instruction sheet Instructions to Patient/Family Please see electronic discharge instructions given to patient. Clinical Quality Measures DVT/VTE Risk/Contraindication: Risk Factor Score Per Nursin RFS Level Per Nursing on Admit: 1=Low/No VTE PPX KALINA QUINTERO May 12, 2019 05:12
[2019-05-12] MEDS: CLINDAMYCIN 900 MG/50 ML IVPB 50 ML IV SCH (06:11)
[2019-05-12] MEDS: MULTIVIT W/MINERALS TAB (THERAGRAN M) PO SCH (06:11)
--- NOTE | 2019-05-12 07:19 | Anesthesia-General Post-Op ---
General Patient Condition Mental Status/LOC: Same as Preop Cardiovascular: Satisfactory Nausea/Vomiting: Absent Respiratory: Satisfactory Pain: Controlled Complications: Absent Post Op Complications Complications None Follow Up Care/Instructions Patient Instructions None needed. Anesthesia/Patient Condition Patient Condition Patient is doing well, no complaints, stable vital signs, no apparent adverse anesthesia problems. No complications reported per nursing. RY MALONE CRNA May 12, 2019 07:19
[2019-05-12] MEDS ORDERED: FLU QUADRIvalent (5+ YOA) 2019-2020 (AFLURIA) 0.5 ML IM ONE (07:25)
[2019-05-12 07:52] VITALS: BP 128/78
== END 2019-05-12 07:50 | disposition home or self-care (01) | DRG 472 ==
LOC: 4TH 05:57 → SURG 05:58 → 4TH 10:50
PROVIDERS: ADMIT Orthopaedic Surgery Orthopaedic Surgery of the Spine; ATTEND Orthopaedic Surgery Orthopaedic Surgery of the Spine
PROC: 0RB30ZZ Excision of Cervical Vertebral Disc, Open Approach (ICD-10-PCS; 2019-05-11)
PROC: 0RG20A0 Fusion of 2 or more Cervical Vertebral Joints with Interbody Fusion Device, Anterior Approach, Anterior Column, Open Approach (ICD-10-PCS; principal; 2019-05-11 07:36)
DX: M47.22 Other spondylosis with radiculopathy, cervical region (principal); M48.02 Spinal stenosis, cervical region; M50.01 Cervical disc disorder with myelopathy, high cervical region; F17.210 Nicotine dependence, cigarettes, uncomplicated; J30.2 Other seasonal allergic rhinitis; Z23 Encounter for immunization
CPT/HCPCS: 87081; 94664; 94760

== ENCOUNTER 2019-05-19 14:48 | Emergency (ER) | payer MEDICAID ==
[~2019-05-19] VITALS: Ht 170 cm; Wt 81.8 kg
[~2019-05-19 14:48] MED LIST changes: +HYDR-3820 PO
[2019-05-19 14:58] VITALS: BP 121/85
--- NOTE | 2019-05-19 16:00 | NUR ---
ATTEMPT TO CALL PT BACK ET PT NOT IN WAITING ROOM PER ALLEGRA SULLIVAN RN.
--- NOTE | 2019-05-19 16:10 | NUR ---
ATTEMPT TO CALL PT BACK ET PT NOT IN WAITING ROOM ACCORDING TO CATIE GUY RN.
== END 2019-05-19 16:00 | disposition left against medical advice (07) ==
LOC: EDUNIT# 14:48 → ER 14:50
DX: R13.10 Dysphagia, unspecified (principal); Z98.1 Arthrodesis status
CPT/HCPCS: 99281

== ENCOUNTER 2019-09-14 10:09 | Outpatient (RCR) | payer MEDICAID ==
[~2019-09-14 10:09] MED LIST changes: +ACHD5005 PO; +ACHYD1T PO; -HYDR-3812 PO; -HYDR-3820 PO
== END 2019-10-22 13:59 | disposition home or self-care (01) ==
PROVIDERS: ATTEND Orthopaedic Surgery Orthopaedic Surgery of the Spine
DX: M48.02 Spinal stenosis, cervical region (principal); M54.5 Low back pain; Z98.1 Arthrodesis status; F17.290 Nicotine dependence, other tobacco product, uncomplicated

== ENCOUNTER → 2020-12-15 | Outpatient (CLI) | payer MEDICAID, OTHER ==
[~2020-12-15] MED LIST changes: -OXYC-471 PO; +OXYC1TAB11 PO
--- NOTE | 2020-12-15 17:17 | Diagnostic Imaging Report ---
PROCEDURE: MR imaging cervical spine without contrast. TECHNIQUE: Multiplanar, multisequence MR imaging of the cervical spine was performed without contrast. INDICATION: Neck pain. History of previous fusion. COMPARISON: 01/29/2008. FINDINGS: In the interim, patient is status post anterior cervical fusion extending from C3 through C7. Evaluation of the integrity of the fusion hardware is suboptimal given MR modality and metallic susceptibility artifact, but static alignment is maintained. There is no significant nany or retrolisthesis. There is no evidence of jumped facets. Marrow signal of the cervical vertebral bodies is also heavily obscured secondary to susceptibility artifact. No gross marrow abnormality is seen. Intervertebral disc spaces are also obscured. There is multilevel endplate/uncovertebral hypertrophy. This does result in multilevel narrowing of the spinal canal. The cervical cord however is normal in course and signal. There is no evidence of cord edema. No abnormal intrathecal filling defects are seen. Included portions of the posterior fossa are unremarkable. Pre and paravertebral soft tissue structures are unremarkable as well. The axial images show the following: C2-C3: There is no large disc bulge or focal protrusion. There is no significant spinal canal or neuroforaminal stenosis. C3-C4: There is uncovertebral hypertrophy with endplate osteophyte formations as well as ligamentum flavum laxity. As a result, there is mild narrowing of the spinal canal and minimal narrowing of the neuroforamen. C4-C5: There is uncovertebral hypertrophy with mild endplate osteophyte formation. This results in minimal narrowing of the spinal canal and right neuroforamen. Left neuroforamen is unremarkable. C5-C6: There is bilateral uncovertebral hypertrophy with endplate osteophyte formation. This results in mild narrowing of the spinal canal and bilateral neuroforamen. C6-C7: There is uncovertebral hypertrophy with mild endplate hypertrophy. This results in minimal narrowing of the spinal canal. Neuroforamina are minimally narrowed as well. C7-T1: There is bilateral uncovertebral hypertrophy, right greater than left. As a result, there is mild narrowing of the right neuroforamen and minimal narrowing of the spinal canal. Left neuroforamen is unremarkable. IMPRESSION: 1. Interval anterior fusion of the cervical spine from C3 through C7. Again, evaluation of the integrity of the hardware is suboptimal given MR modality and metallic susceptibility artifact, but static alignment is maintained. 2. No evidence of acute fracture or dislocation. 3. Residual endplate changes of the cervical spine resulting in multilevel spinal canal and neuroforaminal narrowing as described above. Dictated by: Dictated on workstation # [id number]
== END ==
LOC: RAD 16:17
PROVIDERS: ATTEND Orthopaedic Surgery Orthopaedic Surgery of the Spine
DX: M48.03 Spinal stenosis, cervicothoracic region (principal); M54.13 Radiculopathy, cervicothoracic region; Z98.1 Arthrodesis status
CPT/HCPCS: 72141

== ENCOUNTER → 2020-12-29 | Outpatient (CLI) | payer OTHER, MEDICARE ==
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
== END ==
LOC: RAD 10:24
PROVIDERS: ATTEND Orthopaedic Surgery Orthopaedic Surgery of the Spine
DX: M47.816 Spondylosis without myelopathy or radiculopathy, lumbar region (principal); M47.817 Spondylosis without myelopathy or radiculopathy, lumbosacral region; M51.24 Other intervertebral disc displacement, thoracic region; M51.26 Other intervertebral disc displacement, lumbar region; M51.27 Other intervertebral disc displacement, lumbosacral region; M51.34 Other intervertebral disc degeneration, thoracic region; M51.36 Other intervertebral disc degeneration, lumbar region; M51.37 Other intervertebral disc degeneration, lumbosacral region; M48.061 Spinal stenosis, lumbar region without neurogenic claudication; M48.07 Spinal stenosis, lumbosacral region; N28.1 Cyst of kidney, acquired
CPT/HCPCS: 72148

== ENCOUNTER → 2021-03-20 | Outpatient (CLI) | payer MEDICARE, MEDICAID ==
[~2021-03-20] MED LIST changes: -SULF1TAB35 PO; +SULF1TAB38 PO
--- NOTE | 2021-03-20 09:00 | Diagnostic Imaging Report ---
EXAMINATION: CT chest without contrast (lung screening). TECHNIQUE: Multiple contiguous axial images were obtained through the chest without the use of intravenous contrast according to lung cancer screening protocol. All CT scans use one or more of the following dose optimizing techniques: automated exposure control, MA and/or KvP adjustment based on patient size and exam type or iterative reconstruction. HISTORY: 41 pack year history of smoking. COMPARISON: 03/18/2020 FINDINGS: Thyroid: The thyroid is normal. Mediastinum: Heart size is normal without significant pericardial effusion. Calcifications of the aorta and coronary vessels. Thoracic aorta is normal in caliber. No suspicious lymphadenopathy. Lungs and airways: Background emphysematous changes of lungs without consolidation, pleural effusion, or pneumothorax. There is atelectasis within the lung bases. Stable 1.4 cm area of nodular atelectasis or consolidation within the right lung base along the pleura (series 2 image 151). No new suspicious pulmonary nodule. The airways are normal. Upper abdomen: Left renal cyst is present. Musculoskeletal: Degenerative changes of the spine without suspicious osseous lesion or compression fracture. Partially visualized cervical fusion hardware. IMPRESSION: 1. No new suspicious pulmonary nodules. Recommend continued annual low-dose CT screening. 2. Stable 1.4 cm pleural density within the right lower lobe. 3. COPD. LUNG-RADS CATEGORY: 2 MODIFIER: S Dictated by: Dictated on workstation # [id number]
== END ==
LOC: RAD 08:10
PROVIDERS: ATTEND Nurse Practitioner Family
DX: Z12.2 Encounter for screening for malignant neoplasm of respiratory organs (principal); J44.9 Chronic obstructive pulmonary disease, unspecified; R91.8 Other nonspecific abnormal finding of lung field; F17.210 Nicotine dependence, cigarettes, uncomplicated
CPT/HCPCS: 71271